=== PATIENT | male | born 1945 | race Caucasian/White ===

== ENCOUNTER 2017-03-19 10:27 | Inpatient (IN) | payer OTHER ==
[2017-03-19 10:33] VITALS: BMI 22.0
--- NOTE | 2017-03-19 10:54 | DR.GENAD ---
HPI - PCP Primary Care Physician: S - HPI Comment HPI Comment: PROGRESSIVE OVER FEW MONTHS. WORSE TODAY. NO FEVER. DYSPNEA ON EXERSION. - Complaint/Symptoms Chief Complaint Doctors Comments: GENERALIZE WEAKNESS, ABDOMINAL PAIN AND GI BLEEDING. Chief Complaint:: PT. STATES HE THINKS HIS ULCERATIVE COLITIS IS FLARING UP. PT. STATES HE HAS HAD BLOOD IN HIS STOOL FOR ABOUT 1-2 MONTHS. LAST BOWEL MOVEMENT THIS MORNING. PT. ALSO C/O WEAKNESS AND DIZZINESS UPON STANDING. - Nurses notes reviewed Nurses Notes Review: Yes - Source History Provided: Patient, Family Member - Mode of Arrival Mode of Arrival: Wheelchair - Timing Onset of Chief Complaint: 01/18/17 Came on: Gradually - Duration Duration: Constant Duration: Days - Severity Severity: Moderate PMH - PMH Past Medical History: Yes Past Medical History: Arthritis, Hypertension, Kidney Stones Past Medical History Comment: ULCERATIVE COLITIS, BIPOLAR Past Surgical History: Yes Surgical History: Abdominal Surgery, Ortho Surgery, Other - Family History History of Family Medical Conditions: Yes Family Medical History: [place], Coronary Artery Disease, Hypertension - Social History Does patient currently use any type of tobacco product: No Have you used tobacco products in the last 12 months: No Type of Tobacco Use: None Does any household member use tobacco: No Alcohol Use: None Do you use any recreational Drugs:: No Lives With: Spouse Lives Where: Home - infectious screening In the last 2 months have you had wt loss of >10#?: NO Have you had fever, night sweats or hemotysis?: No Have you traveled outside the country in the last 6 months?: No Isolation: Standard ROS - Review of Systems Constitutional: Weakness Eyes: Tearing ENTM: negative: Ear Pain, Nose Discharge, Nose Congestion, Throat Pain Respiratoy: Non-Productive Cough, Short of Breath. negative: Productive Cough, Wheezing, Hemoptysis Cardiovascular: negative: Syncope (NEAR SYNCOPAL FEELING.) Gastrointestinal/Abdominal: Abdominal Pain Genitourinary: negative: Dysuria, Hematuria Neurological: Weakness Musculoskeletal: Joint Swelling, Muscle Pain Integumentary: No Symptoms Reported Endocrine: No Symptoms Reported All Other Systems: Reviewed and Negative PE - Vital Signs Vitals: Temperature 97.4 F Pulse Rate 78 Respiratory Rate 17 Blood Pressure [Left Arm] 97/58 Blood Pressure [Right Arm] 148/86 Blood Pressure 134/75 O2 Sat by Pulse Oximetry 95 - General Limitations: No Limitations General Appearance: Alert - Head Head Exam: Normal Inspection - Eyes Eye exam: Normal Appearance - ENT ENT Exam: Normal External Ear Exam External Ear Exam: Normal External Inspection TM/Canal Exam: Bilateral Normal Nose Exam: Normal Nose Exam Mouth Exam: Normal Inspection Throat Exam: Normal Inspection - Neck Neck Exam: Normal Inspection - Chest Chest Inspection: Symmetric Chest Wall Rise - Respiratory Respiratory Exam: Normal Lung Sounds Bilat - Cardiovascular Cardiovascular Exam: Regular Rate, Normal Rhythm, Normal Heart Sounds - Abdominal Exam Abdominal Exam: Normal Bowel Sounds, Soft, Tenderness Abdominal Tenderness: RLQ, LLQ, Suprapubic - Extremities Extremities Exam: Normal Inspection - Back Back Exam: Normal Inspection - Neurologic Neurological Exam: Alert, Oriented X3 - Psychiatric Psychiatric Exam: Normal Affect, Normal Mood - Skin Skin Exam: Normal Color MDM - Differential Diagnosis Differential Diagnosis: ABDOMINAL PAIN, BOWEL OBSTRUCTION, UTI, ULCERATIVE, COLITIS Course - Treatment Treatment: SEE ORDERS. - Education/Counseling Education/Counseling: Patient, Education Educated On: Diagnosis ROR - Labs Reviewed Result Diagrams: 03/19/17 11:20 03/19/17 11:20 Laboratory: WBC 6.4 X10^3/uL (3.6-10.0) 03/19/17 11:20 RBC 3.92 X10^6/uL (4.7-6.0) L 03/19/17 11:20 Hgb 12.6 g/dL (13.5-18.0) L 03/19/17 11:20 Hct 37.8 % (42.0-54.0) L 03/19/17 11:20 MCV 96.5 fL (80.0-100.0) 03/19/17 11:20 MCH 32.0 pg (27.0-34.0) 03/19/17 11:20 MCHC 33.2 g/dL (33.0-35.0) 03/19/17 11:20 RDW 15.2 % (11.6-16.5) 03/19/17 11:20 Plt Count 188 X10^3/uL (150.0-450.0) 03/19/17 11:20 MPV 8.3 fL (7.4-11.0) 03/19/17 11:20 Neut % 74.5 % (42.0-75.0) 03/19/17 11:20 Lymph % 19.7 % (21.0-51.0) L 03/19/17 11:20 [place] % 2.7 % (0.0-13.0) 03/19/17 11:20 Eos % 2.4 % (0.9-2.9) 03/19/17 11:20 Baso % 0.7 % (0.2-1.0) 03/19/17 11:20 Neut # 4.7 x10^3/uL (2.2-4.8) 03/19/17 11:20 Lymph # 1.3 X10^3/uL (1.3-2.9) 03/19/17 11:20 [place] # 0.2 x10^3/uL (0.3-0.8) L 03/19/17 11:20 Eos # 0.2 x10^3/uL (0.0-0.2) 03/19/17 11:20 Baso # 0.0 X10^3/uL (0.0-0.1) 03/19/17 11:20 Absolute Nucleated RBC 0.0 /100WBC 03/19/17 11:20 Sodium 139 mmol/L (136-145) 03/19/17 11:20 Corrected Sodium TNP 03/19/17 11:20 Potassium 4.6 mmol/L (3.5-5.1) 03/19/17 11:20 Chloride 105 mmol/L (98-107) 03/19/17 11:20 Carbon Dioxide 27.8 mmol/L (21-32) 03/19/17 11:20 BUN 29 mg/dL (7-18) H 03/19/17 11:20 Creatinine 1.61 mg/dL (0.70-1.30) H 03/19/17 11:20 Est GFR (MDRD) Af Amer 55 (>60) L 03/19/17 11:20 Est GFR (MDRD) Non-Af 45 (>60) L 03/19/17 11:20 Glucose 109 mg/dL (65-99) H 03/19/17 11:20 Calcium 8.5 mg/dL (8.5-10.1) 03/19/17 11:20 Corrected Calcium 9.4 mg/dL (8.5-10.1) 03/19/17 11:20 Total Bilirubin 0.20 mg/dL (0.2-1.0) 03/19/17 11:20 AST 13 Units/L (15-37) L 03/19/17 11:20 ALT 11 Units/L (12-78) L 03/19/17 11:20 Alkaline Phosphatase 68 Units/L (46-116) 03/19/17 11:20 Creatine Kinase 33 Units/L (39-308) L 03/19/17 11:20 CK-MB (CK-2) < 1.0 ng/mL (0-4.0) 03/19/17 11:20 CK/CKMB % Calc 3.0 % (<4) 03/19/17 11:20 Troponin I < 0.02 ng/mL (0-1.5) 03/19/17 11:20 Total Protein 6.6 g/dL (6.4-8.2) 03/19/17 11:20 Albumin 2.9 g/dL (3.4-5.0) L 03/19/17 11:20 Globulin 3.7 g/dL (2.5-4.5) 03/19/17 11:20 Albumin/Globulin Ratio 0.8 Ratio (1.1-2.1) L 03/19/17 11:20 Amylase 43 Units/L (25-115) 03/19/17 11:20 Lipase 118 Units/L (73-393) 03/19/17 11:20 Stool Description Fob tube 03/19/17 11:35 Stl Occult Blood (IFOB) Positive (NEGATIVE) A 03/19/17 11:35 - Discharge Plan Condition: Stable - Follow ups/Referrals Follow ups/Referrals: Wil Armas [Primary Care Provider] - 3 days - Instructions
[2017-03-19 11:34] LABS: BASOPHILS % (AUTO) 0.7 % (0.2-1.0); EOSINOPHILS # (AUTO) 0.2 x10^3/uL (0.0-0.2); EOSINOPHILS % (AUTO) 2.4 % (0.9-2.9); HEMATOCRIT 37.8 % (42.0-54.0); HEMOGLOBIN 12.6 g/dL (13.5-18.0); LYMPHOCYTES # (AUTO) 1.3 X10^3/uL (1.3-2.9); LYMPHOCYTES % (AUTO) 19.7 % (21.0-51.0); MEAN CORPUSCULAR HGB CONC 33.2 g/dL (33.0-35.0); MEAN CORPUSCULAR VOLUME 96.5 fL (80.0-100.0); MEAN PLATELET VOLUME 8.3 fL (7.4-11.0); MONOCYTES # (AUTO) 0.2 x10^3/uL (0.3-0.8); MONOCYTES % (AUTO) 2.7 % (0.0-13.0); NEUTROPHILS # (AUTO) 4.7 x10^3/uL (2.2-4.8); NEUTROPHILS % (AUTO) 74.5 % (42.0-75.0); PLATELET COUNT 188 X10^3/uL (150.0-450.0); RED BLOOD COUNT 3.92 X10^6/uL (4.7-6.0); RED CELL DISTRIBUTION WIDTH 15.2 % (11.6-16.5); WHITE BLOOD COUNT 6.4 X10^3/uL (3.6-10.0)
[2017-03-19 11:50] LABS: BLOOD UREA NITROGEN 29 mg/dL (7-18); CALCIUM 8.5 mg/dL (8.5-10.1); CARBON DIOXIDE 27.8 mmol/L (21-32); CHLORIDE 105 mmol/L (98-107); CREATININE 1.61 mg/dL (0.70-1.30); SODIUM 139 mmol/L (136-145); TROPONIN I < 0.02 ng/mL (0-1.5); eGFR BLACK RACES 55 (>60); eGFR NON BLACK RACES 45 (>60)
[2017-03-19 11:55] LABS: ALANINE AMINOTRANSFERASE 11 Units/L (12-78); ALBUMIN 2.9 g/dL (3.4-5.0); ALKALINE PHOSPHATASE 68 Units/L (46-116); AMYLASE 43 Units/L (25-115); ASPARTATE AMINO TRANSFERASE 13 Units/L (15-37); COR CA(FOR HYPOALB) 9.4 mg/dL (8.5-10.1); CREATINE KINASE 33 Units/L (39-308); CREATINE KINASE MB < 1.0 ng/mL (0-4.0); LIPASE 118 Units/L (73-393); TOTAL PROTEIN 6.6 g/dL (6.4-8.2)
[2017-03-19] MEDS ORDERED: NS 100 ML IV 100 ML IV ONE ×2 (12:43→12:51)
[2017-03-19] MEDS ORDERED: PROTONIX INJ 40 MG VIAL ONE (12:51)
[2017-03-19] MEDS: NS 1000 ML 1,000 ML IV SCH (13:21)
[2017-03-19] MEDS: PROTONIX INJ 40 MG VIAL 80 MG in NS 100 ML IV 80 ML IV SCH ×2 (13:21→22:54)
[2017-03-19] MEDS ORDERED: ZOFRAN INJ 4 MG VIAL IVP ONE (13:49)
[2017-03-19] MEDS ORDERED: DEMEROL INJ IVP ONE (13:49)
[2017-03-19] MEDS ORDERED: DEMEROL INJ ONE (13:52)
[2017-03-19] MEDS ORDERED: ZOFRAN INJ 4 MG VIAL ONE (13:52)
--- NOTE | 2017-03-19 14:03 | CT ---
HISTORY: Abdominal pain Study: CT abdomen pelvis with contrast Comparison: 03/16/2014 report Technique: Axial post-contrast images with coronal and sagittal reformats. Dose reduction procedures were used with mA/kv adjusted for body size. Findings: The lung bases are clear. Pleural calcifications are present suggestive of prior asbestos exposure. T here is a hiatal hernia present. The liver, spleen, adrenal glands, and pancreas are within normal li mits. There is a caval filter present. The kidneys are unobstructed and without masses. Bilateral sma ll renal cysts are present. No ureteral calculi are identified. The appendix is not identified. There are no secondary signs of appendicitis. There are no findings suggestive of diverticulitis or coliti s. Calcific atherosclerotic change is present in a nondilated abdominal aorta. No significant intrape ritoneal or retroperitoneal lymphadenopathy is identified. There is a radiodensity within the lumen o f the distal descending/transverse duodenum which is of uncertain etiology and significance. Examinat ion of the pelvis demonstrated no evidence for pelvic masses, pelvic fluid, or pelvic lymphadenopathy . No bladder abnormality is identified. No lytic or blastic skeletal lesions are identified. There is a compression fracture of L1 likely old. IMPRESSION: No acute intra-abdominal or intrapelvic abnormality Pleural calcifications suggestive of prior asbestos exposure Reported By:
[2017-03-19 14:50] LABS: BILIRUBIN,URINE NEGATIVE (NEGATIVE); BLOOD/HEMOGLOBIN,URINE NEGATIVE (NEGATIVE); GLUCOSE, URINE NEGATIVE (NEGATIVE); KETONES,URINE 1+ (NEGATIVE); LEUKOCYTE ESTERASE ,URINE NEGATIVE (NEGATIVE); NITRITES,URINE NEGATIVE (NEGATIVE); PROTEIN,URINE 1+ (NEGATIVE); UROBILINOGEN,URINE NORMAL (NORMAL)
[2017-03-19 14:57] LABS: APPEARANCE,URINE SLIGHTLY HAZY (CLEAR); BACTERIA,URINE NEGATIVE /HPF (NEGATIVE); COLOR,URINE YELLOW (YELLOW); RBC,URINE 0-1 /HPF (NEGATIVE); SQUAMOUS EPITHELIAL CELL,UR RARE /HPF (NEGATIVE)
[2017-03-19] MEDS ORDERED: ZOFRAN INJ 4 MG VIAL IVP PRN (15:06)
[2017-03-19 16:18] LABS: HEMATOCRIT 34.6 % (42.0-54.0); HEMOGLOBIN 11.6 g/dL (13.5-18.0)
[2017-03-19] MEDS: DEMEROL INJ IVP PRN ×2 (16:58→22:58)
[2017-03-19] MEDS ORDERED: CIPRO IV 400 MG PREMIX* 400 MG/200 ML IV.SOLN. IV SCH (17:00)
--- NOTE | 2017-03-19 17:54 | DR.CONSULT ---
Consult - Consultation for Day of: Date: 03/19/17 - Chief Complaint Chief Complaint: hematochezia - Allergies Allergies/Adverse Reactions: Allergies Allergy/AdvReac Type Severity Reaction Status Date / Time No Known Drug Allergies Allergy Verified 03/19/17 15:35 - History of Present Illness History of Present Illness: Patient is a 71you male who was referred for Occult GI bleed. Patient has a history of Chrons for which he used to take lialda and is no longer on this medication. Patients last colonoscopy was 2010 which showeled ulcerative colitis and hyperplastic rectal polyp. Patient states the rectal bleeding has been going on for about 6 months off and on but has gotten worse. Patient denies melena, diarrhea, abdominal pain, n/v, dysphagia and dyspepsia. - Past Medical History Past Medical History: Arthritis, Hypertension, Kidney Stones Additional Medical History: BIPOLAR DISORDER (NO MEDICATION IN 2 YEARS), BPH, HX GASTROINTESTINAL ULCER, COLITIS, HX FX (R) FOOT, PARKINSON'S, CATARACTS, UTI' S, BACK PAIN - Past Surgical History Surgical History: Abdominal Surgery, Ortho Surgery, Other Additional Surgical History: HERNIA REPAIR, ACDF SURGERY -JUN 2016 - Family History Family Medical History: [place], Coronary Artery Disease, Hypertension - Social History Does patient currently use any type of tobacco product: No Have you used tobacco products in the last 12 months: No Type of Tobacco Use: None How many years tobacco product used: 40 Does any household member use tobacco: No Alcohol Use: None Drug Use: None - Medications Home Medications: Oxycodone HCl/Acetaminophen [Oxycodone-Acetaminophen 5-325] 1 - 2 tab PO Q4-6H PRN 03/19/17 [History Confirmed 03/19/17] Tizanidine HCl [Tizanidine HCl] 1 tab PO HS 03/19/17 [History Confirmed 03/19/17 ] Venlafaxine HCl 1 tab PO DAILY 03/19/17 [History Confirmed 03/19/17] - Review of Systems Constitutional: Weakness Eyes: No Symptoms Reported ENT: No Symptoms Reported Respiratory: No Symptoms Reported Cardiovascular: No Symptoms Reported Gastrointestinal: Hematochezia Genitourinary: No Symptoms Reported Musculoskeletal: No Symptoms Reported Skin: No Symptoms Reported Neurological: No Symptoms Reported - Physical Exam Vital Signs: Temperature 98.7 F Pulse Rate [Left Brachial] 71 Pulse Rate 78 Respiratory Rate 18 Blood Pressure [Left Arm] 127/67 Blood Pressure [Right Arm] 148/86 Blood Pressure 134/75 O2 Sat by Pulse Oximetry 97 Oriented: Normal Eyes: Normal Ear: Normal Nose: Normal Throat: Normal Respiratory: Clear Throughout Cardiovascular: Normal : Normal Auscultation: Bowel Sounds: Normal Palpation: Normal Tenderness: Normal (no tenderness) Skin: Normal Musculoskeletal: Normal Psychiatric: Normal Mood Description: Calm Affect: Normal Speech Pattern: Clear - Plan Plan: Assessment. 1. Occult GI Bleed. 2. H/O ulcerative colitis. Plan. 1. Monitor Hgb transfuse as needed, will need endoscopic workup as outpatient. 2. Cipro, Flagy and solumedrol IV. Will follow up with patient as outpatient after hospital discharge. Patient will need to be discharge on Cipro and Flagyl, and prednisone 40mg PO Daily x2 weeks then 20mg daily and follow up in office
[2017-03-19] MEDS ORDERED: CIPRO IV 400 MG PREMIX* 400 MG/200 ML IV.SOLN. IV ONE (18:00)
[2017-03-19 20:35] LABS: HEMATOCRIT 31.4 % (42.0-54.0); HEMOGLOBIN 10.6 g/dL (13.5-18.0)
[2017-03-19] MEDS: SOLU-Medrol 40 MG VIAL IVP SCH (21:23)
[2017-03-19] MEDS: FLAGYL IV PREMIX 500 MG BAG 500 MG/100 ML BAG IV SCH (21:23)
[2017-03-19] MEDS: KLONOPIN TAB 1 MG PO PRN (23:54)
[2017-03-20] MEDS: CIPRO IV 400 MG PREMIX* 400 MG/200 ML IV.SOLN. IV SCH ×3 (00:13→21:44)
[2017-03-20 00:52] LABS: HEMATOCRIT 34.1 % (42.0-54.0); HEMOGLOBIN 11.5 g/dL (13.5-18.0)
[2017-03-20] MEDS: FLAGYL IV PREMIX 500 MG BAG 500 MG/100 ML BAG IV SCH ×4 (02:55→21:44)
[2017-03-20] MEDS: NS 1000 ML 1,000 ML IV SCH ×2 (05:19→22:03)
[2017-03-20] MEDS: SOLU-Medrol 40 MG VIAL IVP SCH ×3 (05:20→21:43)
[2017-03-20] MEDS: DEMEROL INJ IVP PRN ×2 (05:21→21:52)
[2017-03-20 05:47] LABS: BASOPHILS % (AUTO) 0.2 % (0.2-1.0); EOSINOPHILS % (AUTO) 0.1 % (0.9-2.9); HEMATOCRIT 33.8 % (42.0-54.0); HEMOGLOBIN 11.4 g/dL (13.5-18.0); LYMPHOCYTES # (AUTO) 0.8 X10^3/uL (1.3-2.9); LYMPHOCYTES % (AUTO) 12.5 % (21.0-51.0); MEAN CORPUSCULAR HEMOGLOBIN 32.4 pg (27.0-34.0); MEAN CORPUSCULAR HGB CONC 33.6 g/dL (33.0-35.0); MEAN CORPUSCULAR VOLUME 96.2 fL (80.0-100.0); MONOCYTES # (AUTO) 0.1 x10^3/uL (0.3-0.8); MONOCYTES % (AUTO) 0.9 % (0.0-13.0); NEUTROPHILS # (AUTO) 5.2 x10^3/uL (2.2-4.8); NEUTROPHILS % (AUTO) 86.3 % (42.0-75.0); PLATELET COUNT 191 X10^3/uL (150.0-450.0); RED BLOOD COUNT 3.51 X10^6/uL (4.7-6.0)
[2017-03-20 06:00] LABS: ALANINE AMINOTRANSFERASE 10 Units/L (12-78); ALBUMIN 2.5 g/dL (3.4-5.0); ALKALINE PHOSPHATASE 57 Units/L (46-116); ASPARTATE AMINO TRANSFERASE 13 Units/L (15-37); BLOOD UREA NITROGEN 19 mg/dL (7-18); CALCIUM 8.2 mg/dL (8.5-10.1); CARBON DIOXIDE 24.8 mmol/L (21-32); CHLORIDE 107 mmol/L (98-107); COR CA(FOR HYPOALB) 9.4 mg/dL (8.5-10.1); COR NA(FOR HYPERGLY) 141 mmol/L (136-145); CREATININE 1.39 mg/dL (0.70-1.30); SODIUM 140 mmol/L (136-145); TOTAL PROTEIN 5.7 g/dL (6.4-8.2); eGFR BLACK RACES > 60 (>60); eGFR NON BLACK RACES 54 (>60)
[2017-03-20] MEDS ORDERED: HALDOL INJ IVP PRN (09:21)
[2017-03-20] MEDS: ZyPREXA TAB 5 MG PO SCH ×2 (10:08→17:29)
[2017-03-20] MEDS ORDERED: XANAX PO PRN (10:29)
[2017-03-20] MEDS ORDERED: PERCOCET TAB 5/325 MG PO PRN (10:29)
[2017-03-20] MEDS ORDERED: KLONOPIN TAB 0.5 MG PO PRN (10:29)
[2017-03-20] MEDS ORDERED: ZANAFLEX PO PRN (10:29)
[2017-03-20] MEDS: PEPCID 20 MG IV PREMIX* 20 MG/50 ML BAG IV SCH ×2 (11:06→21:44)
[2017-03-20] MEDS: EFFEXOR TAB 75 MG (BID DOSING) PO SCH (11:07)
[2017-03-20] MEDS: FLOMAX PO SCH ×2 (11:08→21:42)
[2017-03-20] MEDS: PROTONIX INJ 40 MG VIAL 80 MG in NS 100 ML IV 80 ML IV SCH ×2 (14:55→21:44)
[2017-03-20] MEDS: ULTRAM PO PRN (17:29)
[2017-03-20] MEDS ORDERED: DEPAKOTE ER PO SCH (21:00)
[2017-03-20] MEDS ORDERED: AVODART PO SCH (21:00)
[2017-03-21] MEDS: FLAGYL IV PREMIX 500 MG BAG 500 MG/100 ML BAG IV SCH ×2 (04:00→08:45)
[2017-03-21] MEDS: PROTONIX INJ 40 MG VIAL 80 MG in NS 100 ML IV 80 ML IV SCH (05:32)
[2017-03-21] MEDS: SOLU-Medrol 40 MG VIAL IVP SCH (05:32)
[2017-03-21 05:55] LABS: BASOPHILS % (AUTO) 0.1 % (0.2-1.0); HEMATOCRIT 33.3 % (42.0-54.0); HEMOGLOBIN 11.1 g/dL (13.5-18.0); LYMPHOCYTES # (AUTO) 1.1 X10^3/uL (1.3-2.9); MEAN CORPUSCULAR HEMOGLOBIN 32.3 pg (27.0-34.0); MEAN CORPUSCULAR HGB CONC 33.3 g/dL (33.0-35.0); MEAN CORPUSCULAR VOLUME 96.9 fL (80.0-100.0); MEAN PLATELET VOLUME 9.5 fL (7.4-11.0); MONOCYTES # (AUTO) 0.2 x10^3/uL (0.3-0.8); MONOCYTES % (AUTO) 2.2 % (0.0-13.0); NEUTROPHILS # (AUTO) 6.7 x10^3/uL (2.2-4.8); NEUTROPHILS % (AUTO) 83.7 % (42.0-75.0); PLATELET COUNT 221 X10^3/uL (150.0-450.0); RED BLOOD COUNT 3.43 X10^6/uL (4.7-6.0); RED CELL DISTRIBUTION WIDTH 15.3 % (11.6-16.5)
[2017-03-21 06:18] LABS: ALANINE AMINOTRANSFERASE 7 Units/L (12-78); ALBUMIN 2.3 g/dL (3.4-5.0); ALKALINE PHOSPHATASE 52 Units/L (46-116); BLOOD UREA NITROGEN 20 mg/dL (7-18); CALCIUM 7.9 mg/dL (8.5-10.1); CARBON DIOXIDE 26.2 mmol/L (21-32); CHLORIDE 111 mmol/L (98-107); COR CA(FOR HYPOALB) 9.3 mg/dL (8.5-10.1); COR NA(FOR HYPERGLY) 143 mmol/L (136-145); CREATININE 1.42 mg/dL (0.70-1.30); SODIUM 142 mmol/L (136-145); TOTAL PROTEIN 5.5 g/dL (6.4-8.2); eGFR BLACK RACES > 60 (>60); eGFR NON BLACK RACES 52 (>60)
[2017-03-21 06:22] LABS: ASPARTATE AMINO TRANSFERASE 14 Units/L (15-37)
[2017-03-21] MEDS: NS 1000 ML 1,000 ML IV SCH (07:23)
[2017-03-21] MEDS: FLOMAX PO SCH (08:45)
[2017-03-21] MEDS: KLONOPIN TAB 1 MG PO PRN (08:45)
[2017-03-21] MEDS: CIPRO IV 400 MG PREMIX* 400 MG/200 ML IV.SOLN. IV SCH (08:45)
[2017-03-21] MEDS: PEPCID 20 MG IV PREMIX* 20 MG/50 ML BAG IV SCH (08:45)
[2017-03-21] MEDS: EFFEXOR TAB 75 MG (BID DOSING) PO SCH (08:45)
[2017-03-21] MEDS: ZyPREXA TAB 5 MG PO SCH (08:45)
[2017-03-21] MEDS: ULTRAM PO PRN (08:46)
[2017-03-21 12:20] VITALS: BP 82/50
[2017-03-21 14:38] LABS: HEMATOCRIT 31.2 % (42.0-54.0); HEMOGLOBIN 10.5 g/dL (13.5-18.0)
== END 2017-03-21 14:50 | disposition home or self-care (01) | DRG 379 ==
LOC: ER 10:37 → MED/SURG 14:57
PROVIDERS: ADMIT Internal Medicine; ATTEND Internal Medicine
DX: K92.2 Gastrointestinal hemorrhage, unspecified (principal); R10.84 Generalized abdominal pain; R53.1 Weakness; M13.89 Other specified arthritis, multiple sites; I10 Essential (primary) hypertension; R94.31 Abnormal electrocardiogram [ECG] [EKG]; Z87.19 Personal history of other diseases of the digestive system
CPT/HCPCS: 36415; 74177; 80053; 81001; 82150; 82270; 82550; 82553; 83690; 84484; 85014; 85018; 85025; 85610; 93005; 94760; 96365; 96367; 96374; 96375; 99284; A4222; C9113; S0028; S0030; J0744; J1630; J2175; J2405; J2920

== ENCOUNTER → 2017-09-23 | Outpatient (CLI) | payer OTHER ==
--- NOTE | 2017-09-23 15:24 | CT ---
HISTORY: Neck pain for 1 month, history of previous surgery and spinal stenosis Study: CT cervical spine without contrast Comparison: None Technique: Multiple axial images of the cervical spine were obtained from the skull base to the thora cic inlet without administration of IV contrast. Sagittal and coronal reformats were performed and r eviewed. Dose reduction techniques including Automated Exposure Control (AEC) and adjustment of mA an d kV were utilized. Findings: Postsurgical changes are noted with what appears be separate ACDF constructs, spanning C3-C5 and C6 t hrough C7. No abnormal perihardware lucency or malalignment is identified. There are spondylitic de la fuente ges above below the level of. There is moderate to severe left foraminal stenosis at C3-C4 and C4-C5 due to uncovertebral osteophytes. No high-grade spinal canal stenosis is identified. The visualized prevertebral and paraspinal soft tissues appear normal. The visualized lung apices are clear. IMPRESSION: 1. Postsurgical changes as described without acute osseous abnormality. 2. Moderate to severe left foraminal stenosis C3-C4 and C4-C5. Reported By:
== END ==
LOC: RAD 13:53
PROVIDERS: ATTEND Orthopaedic Surgery
DX: M48.02 Spinal stenosis, cervical region (principal)
CPT/HCPCS: 72125

== ENCOUNTER 2018-05-28 15:34 | Observation (INO) ==
--- NOTE | 2018-05-28 16:26 | DR.N/VMALE ---
HPI Time Seen Time Seen by Provider: 05/28/18 16:17 Primary Care Physician Primary Care Physician: TOYIN Complaints Chief Complaint:: PATIENT IS C/O NAUSEA AND VOMITING THAT STARTED 2 DAYS. Source History Provided: Patient and EMS Mode of Arrival Mode of Arrival: EMS Timing Onset of Chief Complaint: 05/26/18 PMH PMH Past Medical History: Yes Past Medical History: Arthritis, Hypertension and Kidney Stones Past Surgical History: Yes Surgical History: Abdominal Surgery, Ortho Surgery and Other Family History History of Family Medical Conditions: Yes Family Medical History: [place], Coronary Artery Disease and Hypertension Social History Does patient currently use any type of tobacco product: No Have you used tobacco products in the last 12 months: No Type of Tobacco Use: None Does any household member use tobacco: No Alcohol Use: None Do you use any recreational Drugs:: No Lives With: Family Lives Where: Home infectious screening In the last 2 months have you had wt loss of >10#?: NO Have you had fever, night sweats or hemotysis?: No Have you traveled outside the country in the last 6 months?: No Isolation: Standard PE Vital Signs Vitals: Temperature 98.1 F Pulse Rate [Right Brachial] 87 Pulse Rate 95 Respiratory Rate 15 Blood Pressure [Left Arm] 90/54 Blood Pressure [Right Arm] 129/67 Blood Pressure 140/77 O2 Sat by Pulse Oximetry 94 ROR Labs Reviewed Result Diagrams: 05/28/18 17:03 05/28/18 17:03 Laboratory: WBC 19.8 X10^3/uL (3.6-10.0) H 05/28/18 17:03 RBC 3.84 X10^6/uL (4.7-6.0) L 05/28/18 17:03 Hgb 12.3 g/dL (13.5-18.0) L 05/28/18 17:03 Hct 37.0 % (42.0-54.0) L 05/28/18 17:03 MCV 96.3 fL (80.0-100.0) 05/28/18 17:03 MCH 32.1 pg (27.0-34.0) 05/28/18 17:03 MCHC 33.3 g/dL (33.0-35.0) 05/28/18 17:03 RDW 14.8 % (11.6-16.5) 05/28/18 17:03 Plt Count 267 X10^3/uL (150.0-450.0) 05/28/18 17:03 MPV 7.9 fL (7.4-11.0) 05/28/18 17:03 Neut % (Auto) 82.1 % (42.0-75.0) H 05/28/18 17:03 Lymph % (Auto) 7.4 % (21.0-51.0) L 05/28/18 17:03 [place] % (Auto) 8.8 % (0.0-13.0) 05/28/18 17:03 Eos % (Auto) 1.0 % (0.9-2.9) 05/28/18 17:03 Baso % (Auto) 0.7 % (0.2-1.0) 05/28/18 17:03 Neut # (Auto) 16.3 x10^3/uL (2.2-4.8) H 05/28/18 17:03 Lymph # (Auto) 1.5 X10^3/uL (1.3-2.9) 05/28/18 17:03 [place] # (Auto) 1.8 x10^3/uL (0.3-0.8) H 05/28/18 17:03 Eos # (Auto) 0.2 x10^3/uL (0.0-0.2) 05/28/18 17:03 Baso # (Auto) 0.1 X10^3/uL (0.0-0.1) 05/28/18 17:03 Absolute Nucleated RBC 0.0 /100WBC 05/28/18 17:03 Sodium 140 mmol/L (136-145) 05/28/18 17:03 Corrected Sodium TNP 05/28/18 17:03 Potassium 4.0 mmol/L (3.5-5.1) 05/28/18 17:03 Chloride 107 mmol/L (98-107) 05/28/18 17:03 Carbon Dioxide 24.8 mmol/L (21-32) 05/28/18 17:03 BUN 16 mg/dL (7-18) 05/28/18 17:03 Creatinine 1.33 mg/dL (0.70-1.30) H 05/28/18 17:03 Est GFR (MDRD) Af Amer > 60 (>60) 05/28/18 17:03 Est GFR (MDRD) Non-Af 56 (>60) L 05/28/18 17:03 Glucose 97 mg/dL (65-99) 05/28/18 17:03 Calcium 8.7 mg/dL (8.5-10.1) 05/28/18 17:03 Corrected Calcium TNP 05/28/18 17:03 Total Bilirubin 0.40 mg/dL (0.2-1.0) 05/28/18 17:03 AST 11 Units/L (15-37) L 05/28/18 17:03 ALT 13 Units/L (12-78) 05/28/18 17:03 Alkaline Phosphatase 102 Units/L (46-116) 05/28/18 17:03 Creatine Kinase 30 Units/L (39-308) L 05/28/18 17:03 CK-MB (CK-2) < 1.0 ng/mL (0-4.0) 05/28/18 17:03 CK/CKMB % Calc 3.3 % (<4) 05/28/18 17:03 Troponin I < 0.02 ng/mL (0-1.5) 05/28/18 17:03 Total Protein 6.6 g/dL (6.4-8.2) 05/28/18 17:03 Albumin 3.4 g/dL (3.4-5.0) 05/28/18 17:03 Globulin 3.2 g/dL (2.5-4.5) 05/28/18 17:03 Albumin/Globulin Ratio 1.1 Ratio (1.1-2.1) 05/28/18 17:03 Amylase 45 Units/L (25-115) 05/28/18 17:03 Lipase 65 Units/L (73-393) L 05/28/18 17:03 Specimen Type Clean catch urine 05/28/18 18: Urine Color Yellow (YELLOW) 05/28/18 18:28 Urine Appearance Clear (CLEAR) 05/28/18 18: Urine pH 5.0 (5.0 - 8.0) 05/28/18 18:28 Ur Specific [place] 1.025 (1.000-1.030) 05/28/18 18:28 Urine Protein Negative (NEGATIVE) 05/28/18 18:28 Urine Glucose (UA) Negative (NEGATIVE) 05/28/18 18: Urine Ketones Negative (NEGATIVE) 05/28/18 18: Urine Occult Blood Negative (NEGATIVE) 05/28/18 18: Urine Nitrite Negative (NEGATIVE) 05/28/18 18: Urine Bilirubin Negative (NEGATIVE) 05/28/18 18: Urine Urobilinogen Normal (NORMAL) 05/28/18 18: Ur Leukocyte Esterase Negative (NEGATIVE) 05/28/18 18: Urine Opiates Screen Negative (NEG=<300) 05/28/18 18: Urine Methadone Screen Negative (NEG=<300) 05/28/18 18: Ur Barbiturates Screen Negative (NEG=<200) 05/28/18 18: Ur Phencyclidine Scrn Negative (NEG=<25) 05/28/18 18: Ur Amphetamines Screen Negative (NEG=<1000) 05/28/18 18: U Benzodiazepines Scrn Positive (NEG=<200) 05/28/18 18: Urine Cocaine Screen Negative (NEG=<300) 05/28/18 18:28 U Marijuana (THC) Screen Negative (NEG=<50) 05/28/18 18:28
[2018-05-28] MEDS ORDERED: TORADOL 60 MG VIAL IVP ONE (16:48)
[2018-05-28] MEDS ORDERED: PEPCID 20 MG IV PREMIX* 20 MG/50 ML BAG IV ONE ×2 (16:48→17:02)
[2018-05-28] MEDS ORDERED: ZOFRAN INJ 4 MG VIAL IVP ONE (16:51)
[2018-05-28] MEDS ORDERED: TORADOL 30 MG VIAL ONE (17:02)
[2018-05-28] MEDS ORDERED: ZOFRAN INJ 4 MG VIAL ONE (17:02)
[2018-05-28 17:16] LABS: BASOPHILS # (AUTO) 0.1 X10^3/uL (0.0-0.1); BASOPHILS % (AUTO) 0.7 % (0.2-1.0); EOSINOPHILS # (AUTO) 0.2 x10^3/uL (0.0-0.2); HEMOGLOBIN 12.3 g/dL (13.5-18.0); LYMPHOCYTES # (AUTO) 1.5 X10^3/uL (1.3-2.9); LYMPHOCYTES % (AUTO) 7.4 % (21.0-51.0); MEAN CORPUSCULAR HEMOGLOBIN 32.1 pg (27.0-34.0); MEAN CORPUSCULAR HGB CONC 33.3 g/dL (33.0-35.0); MEAN CORPUSCULAR VOLUME 96.3 fL (80.0-100.0); MEAN PLATELET VOLUME 7.9 fL (7.4-11.0); MONOCYTES # (AUTO) 1.8 x10^3/uL (0.3-0.8); MONOCYTES % (AUTO) 8.8 % (0.0-13.0); NEUTROPHILS # (AUTO) 16.3 x10^3/uL (2.2-4.8); NEUTROPHILS % (AUTO) 82.1 % (42.0-75.0); PLATELET COUNT 267 X10^3/uL (150.0-450.0); RED BLOOD COUNT 3.84 X10^6/uL (4.7-6.0); RED CELL DISTRIBUTION WIDTH 14.8 % (11.6-16.5); WHITE BLOOD COUNT 19.8 X10^3/uL (3.6-10.0)
[2018-05-28 17:26] LABS: BLOOD UREA NITROGEN 16 mg/dL (7-18); CALCIUM 8.7 mg/dL (8.5-10.1); CARBON DIOXIDE 24.8 mmol/L (21-32); CHLORIDE 107 mmol/L (98-107); CREATININE 1.33 mg/dL (0.70-1.30); SODIUM 140 mmol/L (136-145); TROPONIN I < 0.02 ng/mL (0-1.5); eGFR NON BLACK RACES 56 (>60)
[2018-05-28 17:30] LABS: ALANINE AMINOTRANSFERASE 13 Units/L (12-78); ALBUMIN 3.4 g/dL (3.4-5.0); ALKALINE PHOSPHATASE 102 Units/L (46-116); AMYLASE 45 Units/L (25-115); ASPARTATE AMINO TRANSFERASE 11 Units/L (15-37); CKMB % 3.3 % (<4); CREATINE KINASE 30 Units/L (39-308); CREATINE KINASE MB < 1.0 ng/mL (0-4.0); LIPASE 65 Units/L (73-393); TOTAL PROTEIN 6.6 g/dL (6.4-8.2)
--- NOTE | 2018-05-28 18:23 | CT ---
HISTORY: Abdominal pain with nausea vomiting and diarrhea Study: CT abdomen and pelvis without contrast Comparison: 03/19/2017 Technique: Multiple axial images of the abdomen and pelvis were obtained from the lung bases to the pubic symphysis without the administration of IV contrast. Findings: There is elevation of the right diaphragm which contributes directly to a component of chronic compressive atelectasis and linear fibrotic change at the right lung base. There are findings of calcified, nodular pleural plaque in the right lung base, a chronic finding which is unchanged from exams dating back to 2013. The liver attenuation is predominantly homogeneous. No calcified gallstones are observed. Calcified pleural based nodules are also demonstrated separately within the left lung base. A hiatal hernia is demonstrated and contributes to a component of compressive atelectasis in the left lower lobe surrounding the hernia. No acute abnormalities of the spleen, pancreas or adrenal glands. It is notable that the pancreas is atrophic with fatty replacement. There is no hydronephrosis of the right kidney or the left kidney. Small bilateral nonobstructing renal calculi are observed, the largest measuring 3 mm within the left kidney. There are no pathologically distended large or small bowel segments. Within limitations of a noncontrast CT exam, no aggressively thickened or acutely inflamed large or small bowel segments a normal caliber appendix is identified. IVC filter is in place. No free air, free fluid or lymphadenopathy identified. Note is made of moderate stool burden of the colon without stool impaction. Within the pelvis, no acute abnormalities of the bladder, prostate gland or seminal vesicles are observed. A patulous, fat containing left inguinal canal is noted incidentally without complication. Chronic fracture deformities of the right superior and inferior pubic rami are observed. Patient status post right total hip arthroplasty for treatment of an intertrochanteric right hip fracture. Chronic contour deformities of several right lateral thoracic ribs are also consistent with old fracture sites. There is a chronic compression fracture of the L1 vertebral body with moderate height loss there is an age-indeterminate compression fracture of T7 which may be in a subacute stage is there is residual sclerosis of the vertebral body. IMPRESSION: No acute intra-abdominal or pelvic inflammatory process Nonobstructive bowel gas pattern Bilateral nonobstructing renal calculi Chronic pleural based nodular calcifications may be associated with prior asbestos exposure Hiatal hernia Chronic elevation of the right diaphragm contributes to linear, fibroatelectatic changes of the right lung base. An age indeterminate compression fracture of T7 with moderate height loss, possibly subacute. Clinic tenderness Other chronic and incidental findings as discussed above. Reported By:
[2018-05-28 18:45] LABS: BILIRUBIN,URINE NEGATIVE (NEGATIVE); BLOOD/HEMOGLOBIN,URINE NEGATIVE (NEGATIVE); GLUCOSE, URINE NEGATIVE (NEGATIVE); KETONES,URINE NEGATIVE (NEGATIVE); LEUKOCYTE ESTERASE ,URINE NEGATIVE (NEGATIVE); NITRITES,URINE NEGATIVE (NEGATIVE); PROTEIN,URINE NEGATIVE (NEGATIVE); UROBILINOGEN,URINE NORMAL (NORMAL)
[2018-05-28 18:47] LABS: APPEARANCE,URINE CLEAR (CLEAR); COLOR,URINE YELLOW (YELLOW)
[2018-05-28] MEDS ORDERED: ZOFRAN INJ 4 MG VIAL IVP PRN (20:54)
[2018-05-28] MEDS: NS 1000 ML 1,000 ML IV SCH (21:20)
[2018-05-28 22:30] VITALS: BMI 21.7
--- NOTE | 2018-05-29 05:44 | RAD ---
Examination: Portable AP chest History: Abdominal pain Comparison 07/11/2016 Findings: Continued normal heart size. Marked persistent elevation right hemidiaphragm. No evidence for acute consolidation, pneumothorax or pleural fluid. Impression: No acute cardiac or pulmonary lesion noted. Elevated right hemidiaphragm. Reported By:
[2018-05-29] MEDS: NS 1000 ML 1,000 ML IV SCH ×2 (06:00→16:11)
[2018-05-29 06:47] LABS: BASOPHILS # (AUTO) 0.1 X10^3/uL (0.0-0.1); BASOPHILS % (AUTO) 0.5 % (0.2-1.0); EOSINOPHILS # (AUTO) 0.2 x10^3/uL (0.0-0.2); EOSINOPHILS % (AUTO) 1.4 % (0.9-2.9); HEMATOCRIT 34.4 % (42.0-54.0); HEMOGLOBIN 11.3 g/dL (13.5-18.0); LYMPHOCYTES # (AUTO) 1.9 X10^3/uL (1.3-2.9); LYMPHOCYTES % (AUTO) 16.3 % (21.0-51.0); MEAN CORPUSCULAR HGB CONC 32.9 g/dL (33.0-35.0); MEAN CORPUSCULAR VOLUME 97.3 fL (80.0-100.0); MEAN PLATELET VOLUME 8.5 fL (7.4-11.0); MONOCYTES # (AUTO) 0.8 x10^3/uL (0.3-0.8); MONOCYTES % (AUTO) 7.3 % (0.0-13.0); NEUTROPHILS # (AUTO) 8.6 x10^3/uL (2.2-4.8); NEUTROPHILS % (AUTO) 74.5 % (42.0-75.0); PLATELET COUNT 219 X10^3/uL (150.0-450.0); RED BLOOD COUNT 3.53 X10^6/uL (4.7-6.0); RED CELL DISTRIBUTION WIDTH 14.9 % (11.6-16.5); WHITE BLOOD COUNT 11.6 X10^3/uL (3.6-10.0)
[2018-05-29 06:57] LABS: ALANINE AMINOTRANSFERASE 13 Units/L (12-78); ALBUMIN 2.9 g/dL (3.4-5.0); ALKALINE PHOSPHATASE 87 Units/L (46-116); ASPARTATE AMINO TRANSFERASE 11 Units/L (15-37); BLOOD UREA NITROGEN 18 mg/dL (7-18); CALCIUM 8.3 mg/dL (8.5-10.1); CARBON DIOXIDE 24.3 mmol/L (21-32); CHLORIDE 109 mmol/L (98-107); COR CA(FOR HYPOALB) 9.2 mg/dL (8.5-10.1); CREATININE 1.28 mg/dL (0.70-1.30); SODIUM 142 mmol/L (136-145); TOTAL PROTEIN 5.9 g/dL (6.4-8.2); eGFR NON BLACK RACES 59 (>60)
[2018-05-29] MEDS ORDERED: PHENERGAN TAB 25 MG PO PRN (12:06)
--- NOTE | 2018-05-29 12:12 | DR.H&P ---
H&P - History & Physical for Day of: H&P Date: 05/28/18 - Chief Complaint Chief Complaint: NV AND BACK PAIN - History of Present Illness History of Present Illness: 72 [facility] ER ADMISSION AFTER PRESENTING WITH CO N/V, SPOUSE CONCERNED HE MAY BE DEHYDRATED AND THINKS "UPSET STOMACH FROM TAKING MEDICATION ON EMPTY STOMACH". PT HAS HX OF RECENT FALL AND CO INTRACTABLE BACK PAIN. PT IS ON PERCOCET FOR PAIN AND UNDER CARE OF BONE AND JOINT AND DR ERICKSON FOR CHRONIC JOINT AND LOWER BACK PAIN. PT PMH OF ARTHRITIS AND BIPOLAR DISORDER, BPH. PT ADMITTED FOR IV HYDRATION AND PAIN CONTROL - Past Medical History Past Medical History: Hypertension, Arthritis, Kidney Stones Additional Medical History: BIPOLAR DISORDER (NO MEDICATION IN 2 YEARS), BPH, HX GASTROINTESTINAL ULCER, COLITIS, HX FX (R) FOOT, PARKINSON'S, CATARACTS, UTI'S, BACK PAIN - Past Surgical History Surgical History: Abdominal Surgery, Ortho Surgery, Other Additional Surgical History: HERNIA REPAIR, ACDF SURGERY -JUN 2016 - Family History Family Medical History: [place], Coronary Artery Disease, Hypertension - Social History Does patient currently use any type of tobacco product: No Have you used tobacco products in the last 12 months: No Type of Tobacco Use: None Does any household member use tobacco: No Alcohol Use: None Drug Use: None - Medications Home Medications: No Known Drug Allergies Allergy (Verified 03/19/17 15:35) CONTINUE taking the following medications mesalamine 4 tab PO DAILY 05/28/18 [History] olanzapine [Zyprexa] 5 mg PO BID 05/28/18 [History] promethazine 25 mg PO Q4-6H PRN 05/28/18 [History] duloxetine 30 mg PO DAILY 05/29/18 [History] oxycodone-acetaminophen 1 tab PO QID PRN 05/29/18 [History] tamsulosin 0.4 mg PO BID 05/29/18 [History] tizanidine 4 mg PO .EVENING 05/29/18 [History] - Review of Systems Constitutional: No Symptoms Reported Eyes: No Symptoms Reported ENT: No Symptoms Reported Respiratory: No Symptoms Reported Cardiovascular: No Symptoms Reported Gastrointestinal: Nausea, Vomiting Genitourinary: No Symptoms Reported Musculoskeletal: Back Pain Skin: No Symptoms Reported Neurological: No Symptoms Reported - Physical Exam Vital Signs: Temperature 98 F Pulse Rate [Left Brachial] 70 Pulse Rate [Right Brachial] 67 Pulse Rate 95 Respiratory Rate 18 Blood Pressure [Left Arm] 109/59 Blood Pressure [Right Arm] 96/53 Blood Pressure 140/77 O2 Sat by Pulse Oximetry 97 Oriented: Normal Eyes: Normal Ear: Normal Nose: Normal Throat: Normal Respiratory: Clear Throughout Cardiovascular: Normal : Normal Auscultation: Bowel Sounds: Increased Palpation: Normal Tenderness: Normal Skin: Normal Musculoskeletal: Back:Thoracic, Back:Lumbar Psychiatric: Normal Mood Description: Calm Speech Pattern: Clear, Appropriate - Assessment/Plan (1) Gastroenteritis Status: Acute Plan: ADMIT, GENTLE IV HYDRATION. REPEAT AM LABS, I & O. VERIFY HOME MEDICATION. PAIN CONTROL (2) Abdominal pain Qualifiers: Abdominal location: generalized Qualified Code(s): R10.84 - Generalized abdominal pain Status: Acute (3) COPD (chronic obstructive pulmonary disease) Qualifiers: COPD type: COPD with acute lower respiratory infection Qualified Code(s): J44.0 - Chronic obstructive pulmonary disease with acute lower respiratory infection Status: Chronic (4) BPH (benign prostatic hypertrophy) Qualifiers: Lower urinary tract symptom presence: symptoms present Qualified Code(s): N40.1 - Benign prostatic hyperplasia with lower urinary tract symptoms Status: Chronic (5) Bipolar disorder Qualifiers: Active/Remission status: in full remission Most recent bipolar episode type: depressed Qualified Code(s): F31.76 - Bipolar disorder, in full remission, most recent episode depressed Status: Chronic (6) Depression Qualifiers: Depression Type: major depressive disorder Major depression recurrence: recurrent Active/Remission status: currently active Major depression episode severity: moderate Qualified Code(s): F33.1 - Major depressive disorder, recurrent, moderate Status: Chronic (7) HTN (hypertension) Qualifiers: Hypertension type: essential hypertension Qualified Code(s): I10 - Essential (primary) hypertension Status: Chronic (8) Thoracic spine fracture Status: Acute Plan: PAIN CONTROL, T SPINE CT - Allergies Allergies/Adverse Reactions: Allergies Allergy/AdvReac Type Severity Reaction Status Date / Time No Known Drug Allergies Allergy Verified 03/19/17 15:35
[2018-05-29] MEDS: MESALAMINE PO SCH (12:30)
[2018-05-29] MEDS ORDERED: ZANAFLEX PO SCH (13:00)
[2018-05-29] MEDS ORDERED: KLONOPIN TAB 0.5 MG PO SCH (13:00)
[2018-05-29] MEDS: CYMBALTA PO SCH (13:03)
[2018-05-29] MEDS: ZyPREXA TAB 5 MG PO SCH ×2 (13:03→20:09)
[2018-05-29] MEDS: PERCOCET TAB 5/325 MG PO PRN ×2 (13:03→20:10)
--- NOTE | 2018-05-29 13:32 | CT ---
CT of the thoracic spine without contrast Clinical indication: Acute thoracic spine pain Technique: A noncontrast CT of the thoracic spine is performed in the axial plane with subsequent reconstruction in the sagittal and coronal planes for improved sensitivity. Findings: A compression fracture of the T7 vertebral body is observed. There is moderate to severe height loss upon both the superior and inferior endplate. The vertebral body appears slightly sclerotic which indicates this is likely in the subacute phase. There is a cortical step-off identified along the posterior 3rd of the superior endplate. There is residual subcortical gas identified along the superior endplate. There is no evidence of aggressive retropulsion at this time. Thoracic spine maintains anatomic alignment. There is mild degenerative wedging of the anterior margin of the T1 vertebral body associated with degenerative disc disease and endplate spondylosis at C7-T1. Patient is status post anterior cervical spine fusion with discectomy and spacer placement at multiple levels of the partially included lower cervical spine. Multilevel endplate spondylosis is evident. There is also a chronic appearing compression fracture of the L1 vertebral body with moderate height loss. As previously described within the lung bases there are calcified pleural nodules associated with chronic linear fiber atelectatic change which may be associated with prior asbestos exposure. Mild biapical paraseptal emphysematous changes noted. Otherwise, the imaged lung adames demonstrate no acute infiltrates. There are no paraspinal fluid collections identified. There is mild paravertebral edema at the level of T7. Impression: Probable subacute stage compression fracture of the T7 vertebral body with moderate to severe height loss without aggressive posterior retropulsion associated with underlying osteopenia A chronic compression fracture at L1 with moderate height loss Multilevel thoracic spondylosis. Other chronic degenerative and incidental findings as discussed above. Reported By:
[2018-05-29] MEDS: COLACE CAP 100 MG PO PRN (20:09)
[2018-05-29] MEDS: FLOMAX PO SCH (20:09)
[2018-05-29] MEDS: MILK OF MAGNESIA PO PRN (20:09)
[2018-05-30] MEDS: NS 1000 ML 1,000 ML IV SCH (03:19)
[2018-05-30 06:40] LABS: BASOPHILS # (AUTO) 0.1 X10^3/uL (0.0-0.1); BASOPHILS % (AUTO) 0.6 % (0.2-1.0); EOSINOPHILS # (AUTO) 0.3 x10^3/uL (0.0-0.2); EOSINOPHILS % (AUTO) 3.4 % (0.9-2.9); HEMATOCRIT 36.4 % (42.0-54.0); HEMOGLOBIN 12.1 g/dL (13.5-18.0); LYMPHOCYTES # (AUTO) 1.8 X10^3/uL (1.3-2.9); LYMPHOCYTES % (AUTO) 17.7 % (21.0-51.0); MEAN CORPUSCULAR HEMOGLOBIN 32.4 pg (27.0-34.0); MEAN CORPUSCULAR HGB CONC 33.3 g/dL (33.0-35.0); MEAN CORPUSCULAR VOLUME 97.2 fL (80.0-100.0); MEAN PLATELET VOLUME 8.8 fL (7.4-11.0); MONOCYTES # (AUTO) 0.8 x10^3/uL (0.3-0.8); MONOCYTES % (AUTO) 7.7 % (0.0-13.0); NEUTROPHILS # (AUTO) 7.1 x10^3/uL (2.2-4.8); NEUTROPHILS % (AUTO) 70.6 % (42.0-75.0); PLATELET COUNT 252 X10^3/uL (150.0-450.0); RED BLOOD COUNT 3.75 X10^6/uL (4.7-6.0); RED CELL DISTRIBUTION WIDTH 14.7 % (11.6-16.5); WHITE BLOOD COUNT 10.1 X10^3/uL (3.6-10.0)
[2018-05-30 06:42] LABS: ALANINE AMINOTRANSFERASE 14 Units/L (12-78); ALBUMIN 3.1 g/dL (3.4-5.0); ALKALINE PHOSPHATASE 91 Units/L (46-116); ASPARTATE AMINO TRANSFERASE 13 Units/L (15-37); BLOOD UREA NITROGEN 16 mg/dL (7-18); CALCIUM 8.5 mg/dL (8.5-10.1); CARBON DIOXIDE 25.3 mmol/L (21-32); CHLORIDE 108 mmol/L (98-107); COR CA(FOR HYPOALB) 9.2 mg/dL (8.5-10.1); CREATININE 1.11 mg/dL (0.70-1.30); SODIUM 142 mmol/L (136-145); TOTAL PROTEIN 6.2 g/dL (6.4-8.2); eGFR NON BLACK RACES > 60 (>60)
[2018-05-30] MEDS: PERCOCET TAB 5/325 MG PO PRN (09:04)
[2018-05-30] MEDS: COLACE CAP 100 MG PO PRN (09:04)
[2018-05-30] MEDS: ZyPREXA TAB 5 MG PO SCH (09:04)
[2018-05-30] MEDS: FLOMAX PO SCH (09:04)
[2018-05-30] MEDS: MILK OF MAGNESIA PO PRN (09:04)
[2018-05-30] MEDS: MESALAMINE PO SCH (11:12)
[2018-05-30] MEDS: CYMBALTA PO SCH (11:12)
[2018-05-30 13:51] VITALS: BP 119/69
== END 2018-05-30 14:05 | disposition home or self-care (01) ==
LOC: MED/SURG 15:34 → ER 15:34 → MED/SURG 21:08
PROVIDERS: ADMIT Internal Medicine; ATTEND Internal Medicine
DX: K52.89 Other specified noninfective gastroenteritis and colitis; I10 Essential (primary) hypertension; R11.2 Nausea with vomiting, unspecified; N40.1 Benign prostatic hyperplasia with lower urinary tract symptoms; R26.89 Other abnormalities of gait and mobility; J44.0 Chronic obstructive pulmonary disease with (acute) lower respiratory infection; R94.4 Abnormal results of kidney function studies; F31.76 Bipolar disorder, in full remission, most recent episode depressed; R10.84 Generalized abdominal pain; K44.9 Diaphragmatic hernia without obstruction or gangrene; R19.7 Diarrhea, unspecified; M48.54XA Collapsed vertebra, not elsewhere classified, thoracic region, initial encounter for fracture; D72.828 Other elevated white blood cell count
CPT/HCPCS: 36415; 71010; 71045; 72128; 74176; 80053; 80307; 81003; 82150; 82550; 82553; 83690; 84484; 85025; 96365; 96367; 96374; 96375; 97162; 99218; 99282; 99284; A4222; Q0169; S0028; G0378; G0434; J1885; J2405; J7030

== ENCOUNTER 2019-03-07 11:21 | Observation (INO) ==
[2019-03-07 13:03] LABS: BASOPHILS % (AUTO) 0.7 % (0.2-1.0); EOSINOPHILS # (AUTO) 0.2 x10^3/uL (0.0-0.2); EOSINOPHILS % (AUTO) 3.9 % (0.9-2.9); LYMPHOCYTES # (AUTO) 1.8 X10^3/uL (1.3-2.9); LYMPHOCYTES % (AUTO) 35.6 % (21.0-51.0); MEAN CORPUSCULAR HEMOGLOBIN 31.7 pg (27.0-34.0); MEAN CORPUSCULAR HGB CONC 33.2 g/dL (33.0-35.0); MEAN CORPUSCULAR VOLUME 95.4 fL (80.0-100.0); MEAN PLATELET VOLUME 7.1 fL (7.4-11.0); MONOCYTES # (AUTO) 0.5 x10^3/uL (0.3-0.8); MONOCYTES % (AUTO) 9.1 % (0.0-13.0); NEUTROPHILS # (AUTO) 2.6 x10^3/uL (2.2-4.8); NEUTROPHILS % (AUTO) 50.7 % (42.0-75.0); PLATELET COUNT 176 X10^3/uL (150.0-450.0); RED BLOOD COUNT 4.72 X10^6/uL (4.7-6.0); RED CELL DISTRIBUTION WIDTH 15.5 % (11.6-16.5); WHITE BLOOD COUNT 5.1 X10^3/uL (3.6-10.0)
[2019-03-07 13:14] LABS: ALANINE AMINOTRANSFERASE 35 Units/L (12-78); ALBUMIN 3.4 g/dL (3.4-5.0); ALKALINE PHOSPHATASE 54 Units/L (46-116); ASPARTATE AMINO TRANSFERASE 24 Units/L (15-37); BLOOD UREA NITROGEN 29 mg/dL (7-18); CALCIUM 8.1 mg/dL (8.5-10.1); CARBON DIOXIDE 22.5 mmol/L (21-32); CHLORIDE 106 mmol/L (98-107); CREATININE 1.88 mg/dL (0.70-1.30); SODIUM 139 mmol/L (136-145); TOTAL PROTEIN 6.7 g/dL (6.4-8.2); eGFR NON BLACK RACES 38 (>60)
[2019-03-07] MEDS: NS 1000 ML 1,000 ML IV SCH (13:28)
[2019-03-07] MEDS: PERCOCET TAB 5/325 MG PO PRN ×2 (14:49→21:12)
[2019-03-07 14:54] LABS: BILIRUBIN,URINE NEGATIVE (NEGATIVE); BLOOD/HEMOGLOBIN,URINE 1+ (NEGATIVE); GLUCOSE, URINE NEGATIVE (NEGATIVE); KETONES,URINE NEGATIVE (NEGATIVE); LEUKOCYTE ESTERASE ,URINE NEGATIVE (NEGATIVE); NITRITES,URINE NEGATIVE (NEGATIVE); PROTEIN,URINE 2+ (NEGATIVE); UROBILINOGEN,URINE NORMAL (NORMAL)
[2019-03-07 15:00] LABS: APPEARANCE,URINE CLEAR (CLEAR); COLOR,URINE YELLOW (YELLOW)
--- NOTE | 2019-03-07 15:33 | CT ---
HISTORY: Altered mental status, weakness Study: CT brain without contrast Comparison: February 01, 2014 Technique: Multiple axial images of the brain were obtained from the skull base to the vertex without administration of IV contrast. Findings: No acute intraparenchymal hemorrhage or mass can be identified. No extra-axial fluid collections are seen. No alteration in the attenuation of the brain parenchyma can be identified to suggest acute or subacute ischemic change. Ventricles sulci, cisterns demonstrate appearance consistent with mild degree of generalized atrophy. Patchy areas of decreased attenuation within the periventricular, subcortical, and subinsular matter suggest changes of chronic small vessel ischemic disease. If symptoms or clinical concern persist recommend continued follow-up for further evaluation. IMPRESSION: No acute intracranial process can be identified. Mild generalized atrophy with findings consistent with changes of chronic small vessel ischemic disease. Reported By:
[2019-03-07 17:30] VITALS: BMI 20.5
[2019-03-07] MEDS ORDERED: PHENERGAN TAB 25 MG PO PRN (21:42)
[2019-03-07] MEDS ORDERED: ULTRAM PO PRN (21:42)
[2019-03-08] MEDS: KLONOPIN TAB 1 MG PO SCH ×2 (00:34→21:42)
[2019-03-08] MEDS: NS 1000 ML 1,000 ML IV SCH ×2 (04:14→15:56)
[2019-03-08 05:09] LABS: BASOPHILS % (AUTO) 0.6 % (0.2-1.0); EOSINOPHILS # (AUTO) 0.2 x10^3/uL (0.0-0.2); EOSINOPHILS % (AUTO) 3.7 % (0.9-2.9); HEMATOCRIT 42.6 % (42.0-54.0); HEMOGLOBIN 14.1 g/dL (13.5-18.0); LYMPHOCYTES # (AUTO) 2.7 X10^3/uL (1.3-2.9); LYMPHOCYTES % (AUTO) 40.8 % (21.0-51.0); MEAN CORPUSCULAR HEMOGLOBIN 31.7 pg (27.0-34.0); MEAN CORPUSCULAR HGB CONC 33.1 g/dL (33.0-35.0); MEAN CORPUSCULAR VOLUME 95.8 fL (80.0-100.0); MEAN PLATELET VOLUME 7.8 fL (7.4-11.0); MONOCYTES # (AUTO) 0.6 x10^3/uL (0.3-0.8); MONOCYTES % (AUTO) 8.4 % (0.0-13.0); NEUTROPHILS # (AUTO) 3.1 x10^3/uL (2.2-4.8); NEUTROPHILS % (AUTO) 46.5 % (42.0-75.0); PLATELET COUNT 172 X10^3/uL (150.0-450.0); RED BLOOD COUNT 4.44 X10^6/uL (4.7-6.0); RED CELL DISTRIBUTION WIDTH 15.2 % (11.6-16.5); WHITE BLOOD COUNT 6.6 X10^3/uL (3.6-10.0)
[2019-03-08 05:23] LABS: ALANINE AMINOTRANSFERASE 39 Units/L (12-78); ALBUMIN 3.4 g/dL (3.4-5.0); ALKALINE PHOSPHATASE 52 Units/L (46-116); ASPARTATE AMINO TRANSFERASE 25 Units/L (15-37); BLOOD UREA NITROGEN 24 mg/dL (7-18); CALCIUM 8.1 mg/dL (8.5-10.1); CHLORIDE 108 mmol/L (98-107); CREATININE 1.61 mg/dL (0.70-1.30); SODIUM 140 mmol/L (136-145); TOTAL PROTEIN 6.7 g/dL (6.4-8.2); eGFR NON BLACK RACES 45 (>60)
[2019-03-08] MEDS: SODIUM BICARBONATE TAB 650MG PO SCH ×4 (09:40→21:43)
[2019-03-08] MEDS: MEGACE PO SCH ×2 (09:40→21:42)
[2019-03-08] MEDS: PEPCID TAB 20 MG PO SCH (09:40)
[2019-03-08] MEDS: XANAX PO PRN (10:55)
[2019-03-08] MEDS: PERCOCET TAB 5/325 MG PO PRN ×2 (10:55→17:32)
--- NOTE | 2019-03-08 11:25 | DR.UPDATE ---
H&P Update History and Physical Update: History and Physical reviewed and patient examined. Changes noted: Yes with the following: RETURNED TO THE OFFICE TODAY WITH COMPLAINTS OF WEAKNESS, DECREASED APPETITE, AND CONFUSION AT TIMES. HE WAS ADMITTED FOR FURTHER EVALUATION AND TREATMENT OF DEHYDRATION, WEAKNESS, AND AMS. ON ADMISSION, VITALS WERE 97.9-96-18-96%-116/79. LABS WERE OBTAINED. ABNORMAL LAB VALUES INCLUDE THE FOLLOWING: BUN 29, CREATININE 1.88, GLUCOSE 101, CALCIUM 8.1. URINALYSIS WAS UNREMARKABLE. BRAIN CT REVEALED: No acute intracranial process can be identified. Mild generalized atrophy with findings consistent with changes of chronic small vessel ischemic disease. WE STARTED NORMAL SALINE AT 80ML/HR AND WILL RESUME HIS HOME MEDICATIONS. OTHERWISE, WE WILL FOLLOW UP WITH AM LABS AND CONTINUE TO MONITOR. Prescription drug monitoring program results: PDMP was not reviewed
[2019-03-08] MEDS: PATIENT'S HOME MEDICATION (Linaclotide [Linzess] 72 MCG) PO SCH (12:49)
[2019-03-08] MEDS: LOVENOX INJ 40 MG SYR SC SCH (15:07)
--- NOTE | 2019-03-08 19:43 | PCM.PROG ---
Progress Note - Progress Note for Day of Date of Exam: 03/08/19 - Subjective Subjective: IS BEING TREATED FOR DEHYDRATION, WEAKNESS, AND ALTERED MENTAL STATUS. TODAY, HE IS ALERT AND ORIENTED, LYING IN BED ON MORNING ROUNDS. HE CONTINUES WITH COMPLAINTS OF WEAKNESS. ON EXAMINATION, HEART IS REGULAR IN RATE AND RHYTHM. BILATERAL LUNGS ARE NOTED WITH DIMINISHED LUNG SOUNDS T HROUGHOUT. ABDOMEN IS ROUND, SOFT, AND NON-TENDER WITH NORMAL BOWEL SOUNDS THROUGHOUT. HIS VITALS THIS MORNING ARE: 98.0-94-18-95%-106/64. LABS WERE OBTAINED. ABNORMAL LAB VALUES INCLUDE THE FOLLOWING: RBC 4.44, CHLORIDE 108, BUN 24, CREATININE 1.61, CALCIUM 8.1. URINALYSIS WAS UNREMARKABLE. HE IS CURRENTLY RECEIVING NORMAL SALINE AT 80ML/HR AND HOME MEDS WERE RESUMED. WE WILL CONTINUE WITH CURRENT PLAN OF CARE TODAY. OTHERWISE, WE WILL FOLLOW UP WITH AM LABS AND CONTINUE TO MONITOR. - Past Medical Family Social History Past Med/Fam/Surg Hx: No changes since H&P Allergies: Allergies No Known Drug Allergies Allergy (Verified 03/19/17 15:35) - Review of Systems ROS: No change since H&P - Vital Signs and I&O's Vital Signs: Temperature 97.7 F Pulse Rate [Right Brachial] 77 Respiratory Rate 19 Blood Pressure [Left Arm] 119/69 Blood Pressure [Right Arm] 132/67 Blood Pressure 119/69 O2 Sat by Pulse Oximetry 95 Intake and Output: Intake & Output 03/06/19 03/07/19 03/08/19 03/09/19 11:59 11:59 11:59 11:59 Intake Total 1520 / 1520 1020 / 1020 Output Total 200 / 200 Balance 1520 / 1520 820 / 820 - Physical Exam Oriented: Normal Eyes: Normal Ear: Normal Nose: Normal Throat: Normal Respiratory: Generalized, Diminished Cardiovascular: Normal : Normal Auscultation: Bowel Sounds: Normal Palpation: Normal Tenderness: Normal Skin: Normal Musculoskeletal: Normal Psychiatric: Normal Mood Description: Calm Affect: Normal Speech Pattern: Clear - Laboratory and Diagnostics Result Diagrams: 03/08/19 04:14 03/08/19 04:14 Labs: Laboratory WBC 6.6 X10^3/uL (3.6-10.0) 03/08/19 04:14 RBC 4.44 X10^6/uL (4.7-6.0) L 03/08/19 04:14 Hgb 14.1 g/dL (13.5-18.0) 03/08/19 04:14 Hct 42.6 % (42.0-54.0) 03/08/19 04:14 MCV 95.8 fL (80.0-100.0) 03/08/19 04:14 MCH 31.7 pg (27.0-34.0) 03/08/19 04:14 MCHC 33.1 g/dL (33.0-35.0) 03/08/19 04:14 RDW 15.2 % (11.6-16.5) 03/08/19 04:14 Plt Count 172 X10^3/uL (150.0-450.0) 03/08/19 04:14 MPV 7.8 fL (7.4-11.0) 03/08/19 04:14 Neut % (Auto) 46.5 % (42.0-75.0) 03/08/19 04:14 Lymph % (Auto) 40.8 % (21.0-51.0) 03/08/19 04:14 [place] % (Auto) 8.4 % (0.0-13.0) 03/08/19 04:14 Eos % (Auto) 3.7 % (0.9-2.9) H 03/08/19 04:14 Baso % (Auto) 0.6 % (0.2-1.0) 03/08/19 04:14 Neut # (Auto) 3.1 x10^3/uL (2.2-4.8) 03/08/19 04:14 Lymph # (Auto) 2.7 X10^3/uL (1.3-2.9) 03/08/19 04:14 [place] # (Auto) 0.6 x10^3/uL (0.3-0.8) 03/08/19 04:14 Eos # (Auto) 0.2 x10^3/uL (0.0-0.2) 03/08/19 04:14 Baso # (Auto) 0.0 X10^3/uL (0.0-0.1) 03/08/19 04:14 Absolute Nucleated RBC 0.1 /100WBC 03/08/19 04:14 Sodium 140 mmol/L (136-145) 03/08/19 04:14 Corrected Sodium TNP 03/08/19 04:14 Potassium 4.3 mmol/L (3.5-5.1) 03/08/19 04:14 Chloride 108 mmol/L (98-107) H 03/08/19 04:14 Carbon Dioxide 22.0 mmol/L (21-32) 03/08/19 04:14 BUN 24 mg/dL (7-18) H 03/08/19 04:14 Creatinine 1.61 mg/dL (0.70-1.30) H 03/08/19 04:14 Est GFR (MDRD) Af Amer 55 (>60) L 03/08/19 04:14 Est GFR (MDRD) Non-Af 45 (>60) L 03/08/19 04:14 Glucose 91 mg/dL (65-99) 03/08/19 04:14 Calcium 8.1 mg/dL (8.5-10.1) L 03/08/19 04:14 Corrected Calcium TNP 03/08/19 04:14 Total Bilirubin 0.30 mg/dL (0.2-1.0) 03/08/19 04:14 AST 25 Units/L (15-37) 03/08/19 04:14 ALT 39 Units/L (12-78) 03/08/19 04:14 Alkaline Phosphatase 52 Units/L (46-116) 03/08/19 04:14 Total Protein 6.7 g/dL (6.4-8.2) 03/08/19 04:14 Albumin 3.4 g/dL (3.4-5.0) 03/08/19 04:14 Globulin 3.3 g/dL (2.5-4.5) 03/08/19 04:14 Albumin/Globulin Ratio 1.0 Ratio (1.1-2.1) L 03/08/19 04:14 Specimen Type Clean catch urine 03/07/19 14:45 Urine Color Yellow (YELLOW) 03/07/19 14:45 Urine Appearance Clear (CLEAR) 03/07/19 14:45 Urine pH 5.0 (5.0 - 8.0) 03/07/19 14:45 Ur Specific [place] 1.025 (1.000-1.030) 03/07/19 14:45 Urine Protein 2+ (NEGATIVE) 03/07/19 14:45 Urine Glucose (UA) Negative (NEGATIVE) 03/07/19 14:45 Urine Ketones Negative (NEGATIVE) 03/07/19 14:45 Urine Occult Blood 1+ (NEGATIVE) 03/07/19 14:45 Urine Nitrite Negative (NEGATIVE) 03/07/19 14:45 Urine Bilirubin Negative (NEGATIVE) 03/07/19 14:45 Urine Urobilinogen Normal (NORMAL) 03/07/19 14:45 Ur Leukocyte Esterase Negative (NEGATIVE) 03/07/19 14:45 - Plan (1) Dehydration Status: Acute Plan: NORMAL SALINE AT 80ML/HR, CONTINUE TO MONITOR (2) Generalized weakness Status: Acute (3) Altered mental status Status: Acute Qualifiers: Altered mental status type: transient alteration of awareness Qualified Code(s): R40.4 - Transient alteration of awareness
[2019-03-08] MEDS ORDERED: SEROquel TAB 25 mg PO SCH (21:00)
[2019-03-08] MEDS ORDERED: LIPITOR TAB 40 MG PO SCH (21:00)
[2019-03-09] MEDS: NS 1000 ML 1,000 ML IV SCH (04:52)
[2019-03-09 05:28] LABS: BASOPHILS % (AUTO) 0.6 % (0.2-1.0); EOSINOPHILS # (AUTO) 0.3 x10^3/uL (0.0-0.2); EOSINOPHILS % (AUTO) 4.6 % (0.9-2.9); HEMATOCRIT 36.8 % (42.0-54.0); HEMOGLOBIN 12.4 g/dL (13.5-18.0); LYMPHOCYTES # (AUTO) 2.5 X10^3/uL (1.3-2.9); LYMPHOCYTES % (AUTO) 38.4 % (21.0-51.0); MEAN CORPUSCULAR HEMOGLOBIN 32.2 pg (27.0-34.0); MEAN CORPUSCULAR HGB CONC 33.8 g/dL (33.0-35.0); MEAN CORPUSCULAR VOLUME 95.2 fL (80.0-100.0); MONOCYTES # (AUTO) 0.6 x10^3/uL (0.3-0.8); MONOCYTES % (AUTO) 8.8 % (0.0-13.0); NEUTROPHILS # (AUTO) 3.1 x10^3/uL (2.2-4.8); NEUTROPHILS % (AUTO) 47.6 % (42.0-75.0); PLATELET COUNT 163 X10^3/uL (150.0-450.0); RED BLOOD COUNT 3.87 X10^6/uL (4.7-6.0); RED CELL DISTRIBUTION WIDTH 15.5 % (11.6-16.5); WHITE BLOOD COUNT 6.4 X10^3/uL (3.6-10.0)
[2019-03-09 05:33] LABS: ALANINE AMINOTRANSFERASE 35 Units/L (12-78); ALBUMIN 2.7 g/dL (3.4-5.0); ALKALINE PHOSPHATASE 42 Units/L (46-116); ASPARTATE AMINO TRANSFERASE 21 Units/L (15-37); BLOOD UREA NITROGEN 20 mg/dL (7-18); CALCIUM 7.7 mg/dL (8.5-10.1); CARBON DIOXIDE 22.6 mmol/L (21-32); CHLORIDE 112 mmol/L (98-107); COR CA(FOR HYPOALB) 8.7 mg/dL (8.5-10.1); SODIUM 143 mmol/L (136-145); TOTAL PROTEIN 5.3 g/dL (6.4-8.2); eGFR NON BLACK RACES 53 (>60)
[2019-03-09] MEDS: SODIUM BICARBONATE TAB 650MG PO SCH (08:53)
[2019-03-09] MEDS: PEPCID TAB 20 MG PO SCH (08:53)
[2019-03-09] MEDS: PERCOCET TAB 5/325 MG PO PRN ×2 (08:53)
[2019-03-09] MEDS: XANAX PO PRN (08:53)
[2019-03-09] MEDS: MEGACE PO SCH (08:54)
[2019-03-09] MEDS: LOVENOX INJ 40 MG SYR SC SCH (08:54)
[2019-03-09] MEDS: PATIENT'S HOME MEDICATION (Linaclotide [Linzess] 72 MCG) PO SCH (08:57)
[2019-03-09 10:53] VITALS: BP 135/85
== END 2019-03-09 12:40 | disposition home or self-care (01) ==
LOC: MED/SURG
PROVIDERS: ADMIT Internal Medicine; ATTEND Internal Medicine
DX: F41.8 Other specified anxiety disorders; R29.6 Repeated falls; E03.8 Other specified hypothyroidism; R40.4 Transient alteration of awareness; K21.9 Gastro-esophageal reflux disease without esophagitis; R26.89 Other abnormalities of gait and mobility; E86.0 Dehydration; R53.1 Weakness; I26.09 Other pulmonary embolism with acute cor pulmonale; M54.89 Other dorsalgia; E78.2 Mixed hyperlipidemia
CPT/HCPCS: 36415; 70450; 80053; 81003; 85025; 94760; 96367; 96372; 97162; A4216; A4222; S0179; G0378; J1650; J7030

== ENCOUNTER 2019-08-02 08:19 | Observation (INO) ==
[2019-08-02] MEDS ORDERED: TUSSIONEX PENNKINETIC SUSP PO PRN (10:29)
[2019-08-02] MEDS ORDERED: NS 1/2 1000 ML IV 1,000 ML IV ONE (10:50)
[2019-08-02] MEDS: ROBITUSSIN DM PO SCH ×4 (11:10→21:06)
[2019-08-02] MEDS: VSL#3 PO SCH (11:10)
[2019-08-02] MEDS: LEVAQUIN PREMIX IV 750 MG 750 MG/150 ML BAG IV SCH (11:10)
[2019-08-02] MEDS: NS 1/2 1000 ML IV 1,000 ML IV SCH (11:10)
[2019-08-02 11:45] LABS: BASOPHILS # (AUTO) 0.1 X10^3/uL (0.0-0.1); BASOPHILS % (AUTO) 0.8 % (0.2-1.0); EOSINOPHILS # (AUTO) 0.7 x10^3/uL (0.0-0.2); EOSINOPHILS % (AUTO) 10.9 % (0.9-2.9); HEMOGLOBIN 12.8 g/dL (13.5-18.0); LYMPHOCYTES # (AUTO) 1.8 X10^3/uL (1.3-2.9); LYMPHOCYTES % (AUTO) 28.5 % (21.0-51.0); MEAN CORPUSCULAR HEMOGLOBIN 30.9 pg (27.0-34.0); MEAN CORPUSCULAR HGB CONC 32.8 g/dL (33.0-35.0); MEAN CORPUSCULAR VOLUME 94.1 fL (80.0-100.0); MEAN PLATELET VOLUME 7.7 fL (7.4-11.0); MONOCYTES # (AUTO) 0.7 x10^3/uL (0.3-0.8); MONOCYTES % (AUTO) 10.5 % (0.0-13.0); NEUTROPHILS # (AUTO) 3.2 x10^3/uL (2.2-4.8); NEUTROPHILS % (AUTO) 49.3 % (42.0-75.0); PLATELET COUNT 251 X10^3/uL (150.0-450.0); RED BLOOD COUNT 4.15 X10^6/uL (4.7-6.0); RED CELL DISTRIBUTION WIDTH 13.5 % (11.6-16.5); WHITE BLOOD COUNT 6.5 X10^3/uL (3.6-10.0)
[2019-08-02 11:47] VITALS: BMI 20.5
[2019-08-02 11:50] LABS: ALANINE AMINOTRANSFERASE 19 Units/L (12-78); ALBUMIN 3.2 g/dL (3.4-5.0); ALKALINE PHOSPHATASE 60 Units/L (46-116); ASPARTATE AMINO TRANSFERASE 18 Units/L (15-37); BLOOD UREA NITROGEN 10 mg/dL (7-18); CALCIUM 8.8 mg/dL (8.5-10.1); CARBON DIOXIDE 25.2 mmol/L (21-32); CHLORIDE 107 mmol/L (98-107); COR CA(FOR HYPOALB) 9.4 mg/dL (8.5-10.1); CREATININE 1.33 mg/dL (0.70-1.30); SODIUM 139 mmol/L (136-145); TOTAL PROTEIN 6.6 g/dL (6.4-8.2); eGFR NON BLACK RACES 56 (>60)
--- NOTE | 2019-08-02 12:10 | RAD ---
HISTORYPNEUMONIASTUDYCHEST, PA/LAT ADULTCOMPARISONChest film May 28, 2018.FINDINGSThe trachea is midline. The patient has had prior lower C-spine anterior fusion surgery. The cardiac silhouette is unremarkable. There is chronic elevation the right hemidiaphragm. The lungs are clear without focal infiltrate or effusion. The bony thorax is unremarkable.IMPRESSIONNo acute cardiopulmonary disease.Electronically signed by: MARLEY KRAFT (Aug 02, 2019 12:09:06)
[2019-08-02] MEDS: DUONEB 0.5 MG/3 MG (3 mL) NEB SCH ×3 (12:53→21:20)
[2019-08-02] MEDS: FORTAZ or TAZICEF VIAL INJ 1 G in NS 100 ML IV + SPIKE MINIBAG* 100 ML IV SCH ×3 (13:43→21:06)
[2019-08-02] MEDS: NEURONTIN CAP 300 MG PO SCH ×2 (14:39→21:01)
[2019-08-02] MEDS: NORCO 10/325 TAB PO PRN ×2 (14:40→21:01)
[2019-08-02] MEDS: XANAX PO PRN (14:41)
[2019-08-02] MEDS ORDERED: BENADRYL CAP 50 MG PO PRN (15:23)
[2019-08-02] MEDS ORDERED: PHENERGAN TAB 25 MG PO PRN (19:04)
[2019-08-02] MEDS: KLONOPIN TAB 0.5 MG PO PRN (21:00)
[2019-08-02] MEDS: COLACE CAP 100 MG PO SCH (21:00)
[2019-08-02] MEDS: PEPCID TAB 20 MG PO SCH (21:00)
[2019-08-02] MEDS: FLOMAX PO SCH (21:00)
[2019-08-02] MEDS: MILK OF MAGNESIA PO SCH ×2 (21:05→21:06)
[2019-08-03] MEDS ORDERED: NS 1/2 1000 ML IV 1,000 ML IV ONE (01:11)
[2019-08-03] MEDS: XANAX PO PRN ×2 (05:05→18:05)
[2019-08-03] MEDS: NORCO 10/325 TAB PO PRN ×3 (05:05→19:40)
[2019-08-03] MEDS: NEURONTIN CAP 300 MG PO SCH ×4 (05:05→22:10)
[2019-08-03 05:48] LABS: ALANINE AMINOTRANSFERASE 18 Units/L (12-78); ALBUMIN 3.1 g/dL (3.4-5.0); ALKALINE PHOSPHATASE 61 Units/L (46-116); ASPARTATE AMINO TRANSFERASE 15 Units/L (15-37); BLOOD UREA NITROGEN 9 mg/dL (7-18); CALCIUM 8.8 mg/dL (8.5-10.1); CARBON DIOXIDE 23.7 mmol/L (21-32); CHLORIDE 106 mmol/L (98-107); COR CA(FOR HYPOALB) 9.5 mg/dL (8.5-10.1); CREATININE 1.26 mg/dL (0.70-1.30); SODIUM 142 mmol/L (136-145); TOTAL PROTEIN 6.6 g/dL (6.4-8.2); eGFR NON BLACK RACES 60 (>60)
[2019-08-03 05:53] LABS: BASOPHILS % (AUTO) 0.6 % (0.2-1.0); EOSINOPHILS # (AUTO) 0.7 x10^3/uL (0.0-0.2); EOSINOPHILS % (AUTO) 8.8 % (0.9-2.9); HEMATOCRIT 37.8 % (42.0-54.0); HEMOGLOBIN 12.6 g/dL (13.5-18.0); LYMPHOCYTES % (AUTO) 26.4 % (21.0-51.0); MEAN CORPUSCULAR HEMOGLOBIN 31.8 pg (27.0-34.0); MEAN CORPUSCULAR HGB CONC 33.4 g/dL (33.0-35.0); MEAN CORPUSCULAR VOLUME 95.3 fL (80.0-100.0); MEAN PLATELET VOLUME 8.5 fL (7.4-11.0); MONOCYTES # (AUTO) 0.7 x10^3/uL (0.3-0.8); MONOCYTES % (AUTO) 9.1 % (0.0-13.0); NEUTROPHILS # (AUTO) 4.2 x10^3/uL (2.2-4.8); NEUTROPHILS % (AUTO) 55.1 % (42.0-75.0); PLATELET COUNT 252 X10^3/uL (150.0-450.0); RED BLOOD COUNT 3.96 X10^6/uL (4.7-6.0); RED CELL DISTRIBUTION WIDTH 13.6 % (11.6-16.5); WHITE BLOOD COUNT 7.7 X10^3/uL (3.6-10.0)
[2019-08-03] MEDS: FORTAZ or TAZICEF VIAL INJ 1 G in NS 100 ML IV + SPIKE MINIBAG* 100 ML IV SCH ×4 (06:25→22:20)
[2019-08-03] MEDS: NS 1/2 1000 ML IV 1,000 ML IV SCH (06:25)
--- NOTE | 2019-08-03 07:20 | RAD ---
HISTORYShortness of breathSTUDYCHEST, 1 VIEWCOMPARISONMarch 2019FINDINGSThe heart is within normal limits in size. The josue are normal. The aorta is mildly ectatic. The right hemidiaphragm is chronically elevated. The lung adames are clear. No pleural effusions are identified. Bony thorax is unremarkable with the exception of chronic rotator cuff disease on the right.IMPRESSIONNo acute infiltratesChronically elevated right hemidiaphragmElectronically signed by: ABENA RAO (Aug 03, 2019 07:19:40)
--- NOTE | 2019-08-03 08:36 | DR.H&P ---
H&P - History & Physical for Day of: H&P Date: 08/02/19 - Chief Complaint Chief Complaint: COUGH, SOB, FATIGUE, DECREASED APPETITE, WEAKNESS - History of Present Illness History of Present Illness: IS A 74 YEAR OLD PATIENT OF OURS WHO P RESENTED TO THE HOSPITAL A DIRECT ADMISSION DUE TO COMPLAINTS OF A PRODUCTIVE COUGH, SHORTNESS OF BREATH, FATIGUE, DECREASED APPETITE, AND WEAKNESS. SYMPTOMS STARTED ABOUT A WEEK PRIOR. PMH INCLUDES CAD, COPD, GERD, COLITIS, UTIs, BPH, ANEMIA, BIPOLAR DISORDER, DEPRESSION. ON ARRIVAL TO THE HOSPITAL, VITALS WERE 97.9-85-18-93%-120/72. LABS WERE OBTAINED. ABNORMAL LAB VALUES INCLUDE THE FOLLOWING: RBC 4.15, HGB 12.8, HCT 39.0, CREATININE 1.33, ALBUMIN 3.2. BLOOD AND SPUTUM CULTURES WERE OBTAINED. A CHEST XRAY WAS OBTAINED AND REVEALED: NO ACUTE CARDIOPULMONARY DISEASE. HE WAS STARTED ON 1/2NS AT 75 ML/HR, IV FORTAZ, IV LEVAQUIN, RESPIRATORY TX, SUPPLEMENTAL OXYGEN, AND HOME MEDICATIONS WERE RESUMED. WE PLAN TO FOLLOW UP WITH AM LABS AND CHEST XRAY AND CONTINUE TO MONITOR. - Past Medical History Past Medical History: Hypertension, Arthritis, Kidney Stones Additional Medical History: BIPOLAR DISORDER (NO MEDICATION IN 2 YEARS), BPH, HX GASTROINTESTINAL ULCER, COLITIS, HX FX (R) FOOT, PARKINSON'S, CATARACTS, UTI'S, BACK PAIN - Past Surgical History Surgical History: Abdominal Surgery, Joint Replacement, Ortho Surgery, Other Additional Surgical History: HERNIA REPAIR, ACDF SURGERY -JUN 2016 - Family History Family Medical History: [place], Coronary Artery Disease, Hypertension - Social History Does patient currently use any type of tobacco product: No Have you used tobacco products in the last 12 months: No Type of Tobacco Use: None Does any household member use tobacco: No Alcohol Use: None Drug Use: None - Medications Home Medications: No Known Drug Allergies Allergy (Verified 03/19/17 15:35) CONTINUE taking the following medications donepezil 5 mg PO DAILY 08/02/19 [History] gabapentin 300 mg PO TID 08/02/19 [History] quetiapine [Seroquel] 50 mg PO HS 08/02/19 [History] ziprasidone HCl [Geodon] 20 mg PO DAILY 08/02/19 [History] - Review of Systems Constitutional: See HPI, Weakness, Malaise, Other (DECREASED APPETITE) Eyes: No Symptoms Reported ENT: No Symptoms Reported Respiratory: See HPI, Cough, Shortness of Breath Cardiovascular: No Symptoms Reported Gastrointestinal: No Symptoms Reported Genitourinary: No Symptoms Reported Musculoskeletal: No Symptoms Reported Skin: No Symptoms Reported Neurological: See HPI, Weakness - Physical Exam Vital Signs: Temperature 99 F Pulse Rate [Right Brachial] 76 Respiratory Rate 19 Blood Pressure [Left Arm] 125/71 Blood Pressure [Right Arm] 120/72 Blood Pressure 157/78 O2 Sat by Pulse Oximetry 97 Oriented: Normal Eyes: Normal Ear: Normal Nose: Normal Throat: Normal Respiratory: Diminished Throughout Cardiovascular: Normal. negative: S3, S4, Murmur : Normal Auscultation: Bowel Sounds: Normal Palpation: Normal Tenderness: Normal Skin: Normal Musculoskeletal: Normal Psychiatric: Normal Mood Description: Calm Affect: Normal Speech Pattern: Clear - Assessment/Plan (1) Bronchopneumonia Status: Acute Plan: ADMIT, 1/2NS AT 75 ML/HR, IV FORTAZ, IV LEVAQUIN, RESPIRATORY TX, SUPPLEMENTAL OXYGEN, AND HOME MEDICATIONS WERE RESUMED (2) Dehydration Status: Acute (3) Generalized weakness Status: Acute - Allergies Allergies/Adverse Reactions: Allergies Allergy/AdvReac Type Severity Reaction Status Date / Time No Known Drug Allergies Allergy Verified 03/19/17 15:35
[2019-08-03] MEDS: ROBITUSSIN DM PO SCH ×5 (08:42→22:11)
[2019-08-03] MEDS: LEVAQUIN PREMIX IV 750 MG 750 MG/150 ML BAG IV SCH (08:42)
[2019-08-03] MEDS: FLOMAX PO SCH ×2 (08:43→22:11)
[2019-08-03] MEDS: PEPCID TAB 20 MG PO SCH ×2 (08:43→22:08)
[2019-08-03] MEDS: DEPAKOTE D.R. TAB PO SCH (08:43)
[2019-08-03] MEDS: GEODON PO SCH (08:43)
[2019-08-03] MEDS: ULTRAM PO PRN ×2 (08:43→16:43)
[2019-08-03] MEDS: VSL#3 PO SCH (08:43)
[2019-08-03] MEDS: ARICEPT TAB 5 MG PO SCH (08:44)
[2019-08-03] MEDS ORDERED: DIVALPROEX 250 MG PO SCH (09:00)
[2019-08-03] MEDS: DUONEB 0.5 MG/3 MG (3 mL) NEB SCH ×4 (09:15→20:20)
[2019-08-03] MEDS ORDERED: BENADRYL CAP/TAB 25 MG PO ONE (12:49)
[2019-08-03] MEDS: LOVENOX INJ 40 MG SYR SC SCH (12:58)
[2019-08-03] MEDS: KLONOPIN TAB 0.5 MG PO PRN (22:10)
[2019-08-03] MEDS: COLACE CAP 100 MG PO SCH (22:10)
[2019-08-03] MEDS: MILK OF MAGNESIA PO SCH (22:11)
[2019-08-04 05:24] LABS: BASOPHILS # (AUTO) 0.1 X10^3/uL (0.0-0.1); BASOPHILS % (AUTO) 0.8 % (0.2-1.0); EOSINOPHILS # (AUTO) 0.9 x10^3/uL (0.0-0.2); EOSINOPHILS % (AUTO) 13.3 % (0.9-2.9); HEMATOCRIT 32.2 % (42.0-54.0); HEMOGLOBIN 10.9 g/dL (13.5-18.0); LYMPHOCYTES % (AUTO) 28.4 % (21.0-51.0); MEAN CORPUSCULAR HEMOGLOBIN 32.2 pg (27.0-34.0); MEAN CORPUSCULAR HGB CONC 33.9 g/dL (33.0-35.0); MEAN CORPUSCULAR VOLUME 94.8 fL (80.0-100.0); MEAN PLATELET VOLUME 8.1 fL (7.4-11.0); MONOCYTES # (AUTO) 0.8 x10^3/uL (0.3-0.8); MONOCYTES % (AUTO) 11.6 % (0.0-13.0); NEUTROPHILS # (AUTO) 3.2 x10^3/uL (2.2-4.8); NEUTROPHILS % (AUTO) 45.9 % (42.0-75.0); PLATELET COUNT 238 X10^3/uL (150.0-450.0); RED BLOOD COUNT 3.39 X10^6/uL (4.7-6.0); RED CELL DISTRIBUTION WIDTH 13.7 % (11.6-16.5); WHITE BLOOD COUNT 7.1 X10^3/uL (3.6-10.0)
[2019-08-04 05:36] LABS: ALANINE AMINOTRANSFERASE 15 Units/L (12-78); ALBUMIN 2.5 g/dL (3.4-5.0); ALKALINE PHOSPHATASE 48 Units/L (46-116); ASPARTATE AMINO TRANSFERASE 14 Units/L (15-37); BLOOD UREA NITROGEN 9 mg/dL (7-18); CALCIUM 8.4 mg/dL (8.5-10.1); CARBON DIOXIDE 26.2 mmol/L (21-32); CHLORIDE 109 mmol/L (98-107); COR CA(FOR HYPOALB) 9.6 mg/dL (8.5-10.1); CREATININE 1.35 mg/dL (0.70-1.30); SODIUM 143 mmol/L (136-145); TOTAL PROTEIN 5.6 g/dL (6.4-8.2); eGFR NON BLACK RACES 55 (>60)
[2019-08-04] MEDS: FORTAZ or TAZICEF VIAL INJ 1 G in NS 100 ML IV + SPIKE MINIBAG* 100 ML IV SCH (06:39)
[2019-08-04] MEDS: NS 1/2 1000 ML IV 1,000 ML IV SCH (06:39)
[2019-08-04] MEDS: NEURONTIN CAP 300 MG PO SCH (06:40)
--- NOTE | 2019-08-04 07:41 | RAD ---
HISTORYSOBSTUDYCHEST, 1 VIEWCOMPARISONFINDINGSThe trachea is midline. The cardiac silhouette is unremarkable . The lungs are clear without focal infiltrate or effusion. There is chronic elevation right hemidiaphragm. The bony thorax is unremarkable. The patient has undergone prior anterior fusion surgeries.IMPRESSIONNo acute cardiopulmonary disease and no change from yesterday's portable chest.Electronically signed by: MARLEY KRAFT (Aug 04, 2019 07:40:26)
[2019-08-04] MEDS ORDERED: PEPCID TAB 20 MG PO SCH (09:00)
[2019-08-04] MEDS: LOVENOX INJ 40 MG SYR SC SCH (09:07)
[2019-08-04] MEDS: FLOMAX PO SCH (09:10)
[2019-08-04] MEDS: ARICEPT TAB 5 MG PO SCH (09:10)
[2019-08-04] MEDS: VSL#3 PO SCH (09:10)
[2019-08-04] MEDS: GEODON PO SCH (09:10)
[2019-08-04] MEDS: DEPAKOTE D.R. TAB PO SCH (09:10)
[2019-08-04] MEDS: NORCO 10/325 TAB PO PRN (09:10)
[2019-08-04] MEDS: XANAX PO PRN (09:12)
[2019-08-04] MEDS: ROBITUSSIN DM PO SCH ×2 (09:12→09:16)
[2019-08-04] MEDS: DUONEB 0.5 MG/3 MG (3 mL) NEB SCH (09:17)
--- NOTE | 2019-08-04 10:48 | RAD ---
HISTORYAbdominal painSTUDYKUBCOMPARISONCT abdomen 10/19/2017FINDINGSThere is mild to moderate gas distention of the colon. No significant small bowel disease is identified. There is no evidence for ascites, abdominal mass or pathologic calcification. Right hip prosthesis is present and there is IVC filter at the level of L1-2. There is a chronic compression fracture deformity at L1.IMPRESSIONDescribed findings consistent with mild colon ileus. A colon obstruction is considered less likely. Postsurgical findings as noted.Electronically signed by: TEVIN PLATA (Aug 04, 2019 10:48:02)
[2019-08-04 12:53] VITALS: BP 96/53
[2019-08-04] MEDS ORDERED: FORTAZ or TAZICEF VIAL INJ 1 G in NS 100 ML IV + SPIKE MINIBAG* 100 ML IV SCH (21:00)
[2019-08-05] MEDS ORDERED: LEVAQUIN PREMIX IV 750 MG 750 MG/150 ML BAG IV SCH (09:00)
== END 2019-08-04 12:30 | disposition home or self-care (01) ==
LOC: MED/SURG
PROVIDERS: ADMIT Internal Medicine; ATTEND Internal Medicine
DX: R53.1 Weakness; R10.84 Generalized abdominal pain; F41.8 Other specified anxiety disorders; E86.0 Dehydration; R94.4 Abnormal results of kidney function studies; J18.0 Bronchopneumonia, unspecified organism; K21.9 Gastro-esophageal reflux disease without esophagitis; R26.89 Other abnormalities of gait and mobility; R06.02 Shortness of breath; J44.9 Chronic obstructive pulmonary disease, unspecified
CPT/HCPCS: 36415; 71010; 71020; 71045; 71046; 74000; 74018; 80053; 85025; 87040; 87070; 87205; 94640; 94760; 96360; 96361; 96372; 97165; 97535; A4222; G0378; J0713; J1650; J1956; J7050; J7620; Q0169

== ENCOUNTER 2020-05-13 16:27 | Inpatient (IN) ==
[2020-05-13 18:12] LABS: ABG ALLEN TEST POS; ABG BASE EXCESS -0.2 mmol/L (-2.0-2.0)
[2020-05-13 18:44] LABS: BASOPHILS % (AUTO) 0.2 % (0.2-1.0); HEMATOCRIT 40.9 % (42.0-54.0); HEMOGLOBIN 13.6 g/dL (13.5-18.0); LYMPHOCYTES # (AUTO) 1.7 X10^3/uL (1.3-2.9); LYMPHOCYTES % (AUTO) 15.4 % (21.0-51.0); MEAN CORPUSCULAR HEMOGLOBIN 31.9 pg (27.0-34.0); MEAN CORPUSCULAR HGB CONC 33.3 g/dL (33.0-35.0); MEAN CORPUSCULAR VOLUME 95.6 fL (80.0-100.0); MONOCYTES # (AUTO) 0.9 x10^3/uL (0.3-0.8); MONOCYTES % (AUTO) 8.6 % (0.0-13.0); NEUTROPHILS # (AUTO) 8.2 x10^3/uL (2.2-4.8); NEUTROPHILS % (AUTO) 75.8 % (42.0-75.0); PLATELET COUNT 151 X10^3/uL (150.0-450.0); RED BLOOD COUNT 4.28 X10^6/uL (4.7-6.0); RED CELL DISTRIBUTION WIDTH 13.8 % (11.6-16.5); WHITE BLOOD COUNT 10.8 X10^3/uL (3.6-10.0)
[2020-05-13 18:54] LABS: CALCIUM 8.8 mg/dL (8.5-10.1); CARBON DIOXIDE 27.1 mmol/L (21-32); COR CA(FOR HYPOALB) 9.6 mg/dL (8.5-10.1); CREATININE 1.57 mg/dL (0.70-1.30); TOTAL PROTEIN 6.6 g/dL (6.4-8.2)
[2020-05-13] MEDS: NS 1000 ML 1,000 ML IV SCH (19:00)
--- NOTE | 2020-05-13 20:37 | RAD ---
HISTORYCOVID+ RESPIRATORY DISTRESSSTUDYCHEST, 1 [id number]/05/2020FINDINGSModerate elevation of the right hemidiaphragm, unchanged. Heart size probably within normal limits. No definite change in hilar/mediastinal contours. Probable calcified pleural plaques bilaterally. No new consolidation or pleural effusion. No acute pulmonary edema. Surgical fusion involving the C-spine.IMPRESSIONNo definite acute adverse change compared to prior study.Electronically signed by: Chidi Padron (May 13, 2020 20:35:47)
[2020-05-13] MEDS: LOVENOX INJ 30 MG SYR SC SCH (21:00)
[2020-05-13] MEDS ORDERED: REMDESIVIR 200 MG in NS 250 ML IV 250 ML IV SCH (21:00)
[2020-05-13] MEDS: CIPRO IV 400 MG PREMIX* 400 MG/200 ML IV.SOLN. IV SCH (21:00)
[2020-05-13] MEDS: DUONEB 0.5 MG/3 MG (3 mL) NEB SCH (21:34)
[2020-05-13] MEDS: PULMICORT NEB TX 0.5 MG NEB SCH (21:34)
[2020-05-13] MEDS: SOLU-Medrol 40 MG VIAL IVP SCH (21:53)
[2020-05-13 23:53] LABS: BILIRUBIN,URINE NEGATIVE (NEGATIVE); BLOOD/HEMOGLOBIN,URINE 4+ (NEGATIVE); GLUCOSE, URINE NEGATIVE (NEGATIVE); KETONES,URINE NEGATIVE (NEGATIVE); LEUKOCYTE ESTERASE ,URINE NEGATIVE (NEGATIVE); NITRITES,URINE NEGATIVE (NEGATIVE); PROTEIN,URINE 3+ (NEGATIVE); UROBILINOGEN,URINE NORMAL (NORMAL)
[2020-05-14 00:07] LABS: APPEARANCE,URINE CLEAR (CLEAR); COLOR,URINE YELLOW (YELLOW); SQUAMOUS EPITHELIAL CELL,UR NEGATIVE /HPF (NEGATIVE)
[2020-05-14 00:08] LABS: AMORPHOUS SEDIMENT,UR 2+ /HPF (NEGATIVE); BACTERIA,URINE TRACE /HPF (NEGATIVE); MUCUS,URINE MANY /HPF (NEGATIVE)
[2020-05-14] MEDS: NS 1000 ML 1,000 ML IV SCH ×4 (00:32→20:56)
[2020-05-14] MEDS: DUONEB 0.5 MG/3 MG (3 mL) NEB SCH ×6 (01:33→21:35)
[2020-05-14] MEDS: SOLU-Medrol 40 MG VIAL IVP SCH ×3 (05:07→21:06)
[2020-05-14 05:32] LABS: ABG BASE EXCESS -1.9 mmol/L (-2.0-2.0); ABG HCO3 22.2 mmol/L (22-26)
[2020-05-14 05:37] LABS: BASOPHILS % (AUTO) 0.2 % (0.2-1.0); HEMATOCRIT 40.1 % (42.0-54.0); LYMPHOCYTES # (AUTO) 1.1 X10^3/uL (1.3-2.9); LYMPHOCYTES % (AUTO) 12.7 % (21.0-51.0); MEAN CORPUSCULAR HEMOGLOBIN 31.5 pg (27.0-34.0); MEAN CORPUSCULAR HGB CONC 32.4 g/dL (33.0-35.0); MEAN CORPUSCULAR VOLUME 97.4 fL (80.0-100.0); MEAN PLATELET VOLUME 8.4 fL (7.4-11.0); MONOCYTES # (AUTO) 0.2 x10^3/uL (0.3-0.8); MONOCYTES % (AUTO) 1.8 % (0.0-13.0); NEUTROPHILS # (AUTO) 7.5 x10^3/uL (2.2-4.8); NEUTROPHILS % (AUTO) 85.3 % (42.0-75.0); PLATELET COUNT 158 X10^3/uL (150.0-450.0); RED BLOOD COUNT 4.12 X10^6/uL (4.7-6.0); RED CELL DISTRIBUTION WIDTH 14.2 % (11.6-16.5); WHITE BLOOD COUNT 8.8 X10^3/uL (3.6-10.0)
[2020-05-14 05:58] LABS: ALANINE AMINOTRANSFERASE 37 Units/L (12-78); ALBUMIN 2.9 g/dL (3.4-5.0); ALKALINE PHOSPHATASE 86 Units/L (46-116); ASPARTATE AMINO TRANSFERASE 39 Units/L (15-37); BLOOD UREA NITROGEN 21 mg/dL (7-18); CALCIUM 8.6 mg/dL (8.5-10.1); CARBON DIOXIDE 22.5 mmol/L (21-32); CHLORIDE 101 mmol/L (98-107); COR CA(FOR HYPOALB) 9.5 mg/dL (8.5-10.1); COR NA(FOR HYPERGLY) 136 mmol/L (136-145); CREATININE 1.33 mg/dL (0.70-1.30); SODIUM 135 mmol/L (136-145); TOTAL PROTEIN 6.4 g/dL (6.4-8.2); eGFR NON BLACK RACES 56 (>60)
--- NOTE | 2020-05-14 07:40 | RAD ---
[id number], RESPIRATORY DISTRESSSTUDYCHEST, 1 [id number]/13/2020FINDINGSThe trachea is midline. The cardiac silhouette is stable. Similar emphysematous changes and pleural calcifications. Similar elevation of the right hemidiaphragm. No definite acute airspace opacities. The bony thorax is unchanged. ACDF hardware.IMPRESSIONNo acute cardiopulmonary disease.Electronically signed by: ABENA RAO (May 14, 2020 07:38:48)
[2020-05-14] MEDS: LOVENOX INJ 30 MG SYR SC SCH ×2 (08:16→20:55)
[2020-05-14] MEDS: CIPRO IV 400 MG PREMIX* 400 MG/200 ML IV.SOLN. IV SCH ×2 (08:17→20:55)
[2020-05-14] MEDS: PULMICORT NEB TX 0.5 MG NEB SCH ×2 (09:19→21:35)
[2020-05-14] MEDS ORDERED: ACTEMRA 400 MG in NS 100 ML IV 80 ML IV SCH (10:00)
--- NOTE | 2020-05-14 11:48 | DR.H&P ---
H&P - History & Physical for Day of: H&P Date: 05/13/20 - Chief Complaint Chief Complaint: COUGH, SOB, FEVER, NAUSEA, WEAKNESS - History of Present Illness History of Present Illness: IS A 74 YEAR OLD PATIENT OF OURS WHO PRESENTED TO THE HOSPITAL A DIRECT ADMISSION DUE TO COMPLAINTS OF COUGH, SHORTNESS OF BREATH, FEVER, NAUSEA, AND SEVERE WEAKNESS. PATIENT REPORTS THAT SYMPTOMS STARTED ABOUT A WEEK AND A HALF AGO. HE REPORTS TESTING POSITIVE FOR COVID-19 LAST WEEK. AT THAT TIME, HE WAS STARTED ON AZITHROMYCIN 500MG IV DAILY, ALBUTEROL INHALER, AND WAS GIVEN PROMETHAZINE FOR NAUSEA. HE REPORTS WORSENING OF SYMPTOMS DESPITE COMPLIANCE WITH HIS MEDICATIONS. HE REPORTS THAT HIS OXYGEN SATURATIONS AT HOME HAVE BEE 88-90% ON ROOM AIR. HIS PMH INCLUDES: CAD, COPD, GERD, COLITIS, CHRONIC UTIs, BPH, KIDNEY STONES, ARTHRITIS, DEPRESSION, BIPOLAR DISORDER, NM, JOINT REPLACEMENT, HERNIA REPAIR, AND NECK FUSION. EXAMINATION OF LUNG NOWAK REVEALED SCATTERED WHEEZING. ABDOMEN IS ROUND, SOFT, AND NON-TENDER WITH NORMAL BOWEL SOUNDS NOTED IN ALL QUADRANTS. HIS VITALS ON ADMISSION WERE 100.0-88-18-90%-122/69. LABS WERE OBTAINED. ABNORMAL LAB VALUES INCLUDE THE FOLLOWING: WBC 10.8, RBC 4.28, HCT 40.9, SODIUM 135, BUN 21, CREATININE 1.57, GLUCOSE 129, CRP 129.80, ALBUMIN 3.0. AN EKG WAS OBTAINED AND REVEALED: SINUS RHYTHM WITH HR 86. A CHEST XRAY WAS OBTAINED AND REVEALED: Moderate elevation of the right hemidiaphragm, unchanged. Heart size probably within normal limits. No definite change in hilar/mediastinal contours. Probable calcified pleural plaques bilaterally. No new consolidation or pleural effusion. No acute pulmona ry edema. Surgical fusion involving the C-spine. HE WAS STARTED ON NS AT 80 ML/HR, REMDESIVIR 200MG IV X 1, THEN 100MG IV DAILY, LOVENOX 30MG SC BID, SOLU- MEDROL 80MG IV Q8H, CIPRO 400MG IV Q12H, DUONEBS Q4H, AND PULMICORT NEBS BID. WE WILL ADMINISTER ACTEMRA 400MG IV X 1 AND ORDER A UNIT OF CONVALESCENT PLASMA TO BE ADMINISTERED WHEN IT IS AVAILABLE. OTHERWISE, WE PLAN TO FOLLOW UP WITH AM LABS AND CONTINUE TO MONITOR. TIME SPENT ON CLINICAL ASSESSMENT, REVIEWING LABS AND IMAGING, DECISION MAKING, AND DOCUMENTATION GREATER THAN 75 MINUTES. - Past Medical History Past Medical History: Hypertension, Arthritis, Kidney Stones Additional Medical History: BIPOLAR DISORDER (NO MEDICATION IN 2 YEARS), BPH, HX GASTROINTESTINAL ULCER, COLITIS, HX FX (R) FOOT, PARKINSON'S, CATARACTS, UTI'S, BACK PAIN - Past Surgical History Surgical History: Abdominal Surgery, Joint Replacement, Ortho Surgery, Other Additional Surgical History: HERNIA REPAIR, ACDF SURGERY -JUN 2016 - Family History Family Medical History: NM, Coronary Artery Disease, Hypertension - Social History Does patient currently use any type of tobacco product: No Have you used tobacco products in the last 12 months: No Type of Tobacco Use: None Alcohol Use: None - Medications Home Medications: No Known Drug Allergies Allergy (Verified 03/19/17 15:35) - Review of Systems Constitutional: Fever, Chills, Weakness Eyes: No Symptoms Reported ENT: No Symptoms Reported Respiratory: See HPI, Cough, Shortness of Breath, SOB with Excertion Cardiovascular: No Symptoms Reported Gastrointestinal: Nausea Genitourinary: No Symptoms Reported Musculoskeletal: No Symptoms Reported Skin: No Symptoms Reported Neurological: Weakness - Physical Exam Vital Signs: Temperature 98 F Pulse Rate [Right Brachial] 76 Pulse Rate 74 Respiratory Rate 20 Blood Pressure [Left Arm] 121/63 Blood Pressure 157/78 O2 Sat by Pulse Oximetry 94 Oriented: Normal Eyes: Normal Ear: Normal Nose: Normal Throat: Normal Respiratory: Diminished Throughout Cardiovascular: Normal : Normal Auscultation: Bowel Sounds: Normal Palpation: Normal Tenderness: Normal Skin: Normal Musculoskeletal: Normal Psychiatric: Normal Mood Description: Calm Affect: Normal Speech Pattern: Clear - Assessment/Plan (1) Bronchitis due to 2019 novel coronavirus Status: Acute Plan: ADMIT, NS AT 80 ML/HR, REMDESIVIR 200MG IV X 1, THEN 100MG IV DAILY, LOVENOX 30MG SC BID, SOLU-MEDROL 80MG IV Q8H, CIPRO 400MG IV Q12H, DUONEBS Q4H, AND PULMICORT NEBS BID. ONE UNIT OF PLASMA WHEN AVAILABLE (2) Hypoxia Status: Acute - Allergies Allergies/Adverse Reactions: Allergies Allergy/AdvReac Type Severity Reaction Status Date / Time No Known Drug Allergies Allergy Verified 03/19/17 15:35
[2020-05-14 15:18] VITALS: BMI 18.1
[2020-05-14] MEDS: REMDESIVIR 100 MG in NS 250 ML IV 250 ML IV SCH (21:00)
[2020-05-14] MEDS: NORCO 5/325 MG TAB PO PRN (21:06)
[2020-05-15] MEDS: DUONEB 0.5 MG/3 MG (3 mL) NEB SCH ×6 (01:06→20:10)
--- NOTE | 2020-05-15 02:18 | CT ---
STUDY: CTA CHEST WITH IV CONTRASTCOMPARISON: NoneTECHNIQUE: axial images were acquired of the chest with IV contrast for a CT angiogram. Coronal and sagittal images were provided. All images were reviewed in a variety of windows and levels. 3D 8 mm thick MIPS images were provided.RADIATION REDUCTION TECHNIQUE: Automated exposure control, Adjustment of the mA and/or kV according to patient size, or iterative reconstruction techniques were used. 8 mm thick axial MIPS images were provided.HISTORY: SOBFINDINGS:CHEST:THYROID GLANDS: The thyroid gland is unremarkable.HEART AND VESSELS: The heart size is within normal limits.There is no evidence of pericardial effusion. Thoracic aorta is normal size without evidence of an aneurysm or dissection.Main pulmonary artery size is within normal limits. There are no filling defect seen within the visualized pulmonary arteries to suggest a pulmonary embolism.LYMPH NODES: There is no evidence of axillary, mediastinal, or hilar lymphadenopathy.AIRWAY: The trachea and mainstem bronchi are patent.No intraluminal lesions are seen.LUNGS: There are scattered areas of ground-glass opacities predominantly involving the bilateral lower lung zones. This appears slightly worse on the right compared to the left. There is no pleural effusion. No evidence of pneumothorax. Emphysematous changes are noted.ESOPHAGUS: There is a moderate-sized hiatal hernia.BONES: The visualized bones demonstrate degenerative changes. There are no concerning lytic or blastic lesions identified. There is partial visualization of cervical spine fusion hardware.UPPER ABDOMINAL STRUCTURES: The visualized upper abdominal structures demonstrates partial visualization of an IVC filter. There are scattered areas of coarse calcification seen along the right hemidiaphragm.IMPRESSSION:1. No evidence of pulmonary embolism2. Scattered regions of ground-glass opacities is seen in the pleura nominally involving the bilateral lower lung zones. The chronicity of this finding is not clear on this examination as there are no prior studies available for comparison. This may represent acute or chronic airspace disease. Please clinically correlate with patient's symptoms.3. IVC filter is notedElectronically signed by: Kang Gao (May 15, 2020 02:16:55)
[2020-05-15] MEDS: NORCO 5/325 MG TAB PO PRN (03:36)
[2020-05-15 04:59] LABS: ABG BASE EXCESS -0.2 mmol/L (-2.0-2.0)
[2020-05-15 05:39] LABS: BASOPHILS % (AUTO) 0.1 % (0.2-1.0); HEMATOCRIT 36.1 % (42.0-54.0); HEMOGLOBIN 12.1 g/dL (13.5-18.0); LYMPHOCYTES # (AUTO) 1.1 X10^3/uL (1.3-2.9); LYMPHOCYTES % (AUTO) 10.2 % (21.0-51.0); MEAN CORPUSCULAR HEMOGLOBIN 32.1 pg (27.0-34.0); MEAN CORPUSCULAR HGB CONC 33.6 g/dL (33.0-35.0); MEAN CORPUSCULAR VOLUME 95.4 fL (80.0-100.0); MEAN PLATELET VOLUME 8.2 fL (7.4-11.0); MONOCYTES # (AUTO) 0.4 x10^3/uL (0.3-0.8); NEUTROPHILS # (AUTO) 9.4 x10^3/uL (2.2-4.8); NEUTROPHILS % (AUTO) 85.7 % (42.0-75.0); PLATELET COUNT 191 X10^3/uL (150.0-450.0); RED BLOOD COUNT 3.78 X10^6/uL (4.7-6.0); RED CELL DISTRIBUTION WIDTH 14.4 % (11.6-16.5); WHITE BLOOD COUNT 10.9 X10^3/uL (3.6-10.0)
[2020-05-15 06:01] LABS: ALANINE AMINOTRANSFERASE 35 Units/L (12-78); ALBUMIN 2.7 g/dL (3.4-5.0); ALKALINE PHOSPHATASE 72 Units/L (46-116); ASPARTATE AMINO TRANSFERASE 37 Units/L (15-37); BLOOD UREA NITROGEN 23 mg/dL (7-18); CALCIUM 8.8 mg/dL (8.5-10.1); CARBON DIOXIDE 24.6 mmol/L (21-32); CHLORIDE 106 mmol/L (98-107); COR CA(FOR HYPOALB) 9.8 mg/dL (8.5-10.1); COR NA(FOR HYPERGLY) 140 mmol/L (136-145); CREATININE 1.21 mg/dL (0.70-1.30); SODIUM 139 mmol/L (136-145); TOTAL PROTEIN 5.9 g/dL (6.4-8.2); eGFR NON BLACK RACES > 60 (>60)
[2020-05-15] MEDS: SOLU-Medrol 40 MG VIAL IVP SCH ×3 (06:13→21:52)
--- NOTE | 2020-05-15 08:01 | RAD ---
HISTORYSOB, [id number], 1 [id number] trachea is midline. The cardiac silhouette is stable. Chronic interstitial markings and emphysematous changes. Similar bibasilar airspace opacities. No definite acute airspace disease. The bony thorax is stable. ACDF hardware partially visualized.IMPRESSIONSimilar bibasilar airspace opacities of indeterminate acuity. Continued follow-up recommended.Electronically signed by: ABENA RAO (May 15, 2020 07:59:58)
[2020-05-15] MEDS ORDERED: ULTRAM PO PRN (08:09)
[2020-05-15] MEDS: CIPRO IV 400 MG PREMIX* 400 MG/200 ML IV.SOLN. IV SCH ×2 (08:33→21:08)
[2020-05-15] MEDS: LOVENOX INJ 30 MG SYR SC SCH ×2 (09:03→20:25)
[2020-05-15] MEDS: GEODON PO SCH ×2 (09:03→21:51)
[2020-05-15] MEDS: FLOMAX PO SCH (09:03)
[2020-05-15] MEDS: COLACE CAP 100 MG PO SCH ×2 (09:03→21:51)
[2020-05-15] MEDS: PHENERGAN TAB 25 MG PO SCH ×4 (09:03→21:51)
[2020-05-15] MEDS: PERCOCET TAB 5/325 MG PO PRN ×2 (09:10→21:49)
[2020-05-15] MEDS: PULMICORT NEB TX 0.5 MG NEB SCH ×2 (09:20→20:10)
[2020-05-15] MEDS: PROTONIX INJ 40 MG VIAL IVP SCH ×2 (11:35→21:30)
[2020-05-15] MEDS: PEPCID 20 MG IV PREMIX* 20 MG/50 ML BAG IV SCH ×2 (11:35→21:08)
[2020-05-15] MEDS ORDERED: NS 100 ML IV 100 ML IV ONE (16:47)
[2020-05-15] MEDS ORDERED: TYLENOL 325 MG TAB PO ONE (17:21)
[2020-05-15] MEDS ORDERED: BENADRYL INJ 50 MG VIAL IVP ONE (17:22)
[2020-05-15] MEDS: NS 1000 ML 1,000 ML IV SCH (18:28)
[2020-05-15] MEDS: XANAX PO PRN (21:09)
[2020-05-15] MEDS: KLONOPIN TAB 0.5 MG PO SCH (21:09)
[2020-05-15 21:24] LABS: BILIRUBIN,URINE NEGATIVE (NEGATIVE); BLOOD/HEMOGLOBIN,URINE 3+ (NEGATIVE); GLUCOSE, URINE NEGATIVE (NEGATIVE); KETONES,URINE NEGATIVE (NEGATIVE); LEUKOCYTE ESTERASE ,URINE NEGATIVE (NEGATIVE); NITRITES,URINE NEGATIVE (NEGATIVE); PROTEIN,URINE 1+ (NEGATIVE); UROBILINOGEN,URINE NORMAL (NORMAL)
[2020-05-15 21:31] LABS: APPEARANCE,URINE CLEAR (CLEAR); COLOR,URINE STRAW (YELLOW)
[2020-05-15 21:32] LABS: BACTERIA,URINE TRACE /HPF (NEGATIVE); RBC,URINE 0-2 /HPF (0-3); SQUAMOUS EPITHELIAL CELL,UR FEW /HPF (NEGATIVE)
--- NOTE | 2020-05-15 21:54 | PCM.PROG ---
Progress Note - Progress Note for Day of Date of Exam: 05/14/20 - Subjective Subjective: IS BEING TREATED FOR BRONCHITIS DUE TO COVID-19 AND HYPOXIA. TODAY, HE IS ALERT AND ORIENTED, LYING IN BED ON MORNING ROUNDS. HE CONTINUES WITH COMPLAINTS OF COUGH, SHORTNESS OF BREATH, AND GENERALIZED WEAKNESS. HE IS CURRENTLY UTILIZING OXYGEN VIA NASAL CANNULA AT 2 LITERS/MINUTE. HIS OXYGEN SATURATIONS HAVE BEEN 90-94% ON NASAL CANNULA. HE DENIES SIGNIFICANT IMPROVEMENT IN SYMPTOMS SINCE ADMISSION. HE REPORTS LOWER BACK PAIN TODAY. ON EXAMINATION, HEART IS REGULAR IN RATE AND RHYTHM. BILATERAL LUNGS ARE NOTED WITH SCATTERED WHEEZING THROUGHOUT. ABDOMEN IS ROUND, SOFT, AND NON-TENDER WITH NORMAL BOWEL SOUNDS NOTED IN ALL QUADRANTS. HIS VITALS THIS MORNING ARE: 98.0-76-20-90%NC- 121/63. LABS WERE OBTAINED. ABNORMAL LAB VALUES INCLUDE THE FOLLOWING: RBC 4.12, HGB 13.0, HCT 40.1, SODIUM 135, BUN 21, CREATININE 1.33, GLUCOSE 141, AST 39, CRP 166.70, ALBUMIN 2.9. AN ABG WAS REPEATED TO DAY AND REVEALED: PH 7.410, PC02 35, P02 68, HC03 22.2, 02 SAT 93, FI02 28.0. BLOOD CULTURES ARE PENDING. CHEST XRAY REVEALED: No acute cardiopulmonary disease. HE IS CURRENLY RECEIVING NS AT 80 ML/HR, REMDESIVIR 200MG IV X 1, THEN 100MG IV DAILY, LOVENOX 30MG SC BID, SOLU-MEDROL 80MG IV Q8H, CIPRO 400MG IV Q12H, DUONEBS Q4H, AND PULMICORT NEBS BID. WE WILL ORDER A UNIT OF CONVALESCENT PLASMA TO BE ADMINISTERED WHEN IT IS AVAILABLE. TODAY, WE WILL START DILAUDID 1-2MG IV Q6H PRN AND TORADOL 30MG IV Q8H PRN. OTHERWISE, WE PLAN TO FOLLOW UP WITH AM LABS AND CONTINUE TO MONITOR. TIME SPENT ON CLINICAL ASSESSMENT, REVIEWING LABS AND IMAGING, DECISION MAKING, AND DOCUMENTATION GREATER THAN 45 MINUTES. - Past Medical Family Social History Past Med/Fam/Surg Hx: No changes since H&P Allergies: Allergies No Known Drug Allergies Allergy (Verified 03/19/17 15:35) - Review of Systems ROS: No change since H&P - Vital Signs and I&O's Vital Signs: Temperature 98.1 F Pulse Rate [Right Brachial] 86 Pulse Rate 85 Respiratory Rate 20 Blood Pressure [Left Arm] 119/65 Blood Pressure 157/78 O2 Sat by Pulse Oximetry 92 Intake and Output: Intake & Output 05/13/20 05/14/20 05/15/20 05/16/20 11:59 11:59 11:59 11:59 Intake Total 1288 / 1288 3388 / 3388 1136 / 1136 Output Total 850 / 850 Balance 1288 / 1288 3388 / 3388 286 / 286 - Physical Exam Oriented: Normal Eyes: Normal Ear: Normal Nose: Normal Throat: Normal Respiratory: Generalized, Diminished, Wheezes Cardiovascular: Normal : Normal Auscultation: Bowel Sounds: Normal Palpation: Normal Tenderness: Normal Skin: Normal Musculoskeletal: Normal Psychiatric: Normal Mood Description: Calm Affect: Normal Speech Pattern: Clear, Appropriate - Laboratory and Diagnostics Result Diagrams: 05/15/20 04:55 05/15/20 04:55 Labs: 05/13/20 18:26 Blood Blood Culture - Preliminary 05/13/20 18:20 Blood Blood Culture - Preliminary Laboratory WBC 10.9 X10^3/uL (3.6-10.0) H 05/15/20 04:55 RBC 3.78 X10^6/uL (4.7-6.0) L 05/15/20 04:55 Hgb 12.1 g/dL (13.5-18.0) L 05/15/20 04:55 Hct 36.1 % (42.0-54.0) L 05/15/20 04:55 MCV 95.4 fL (80.0-100.0) 05/15/20 04:55 MCH 32.1 pg (27.0-34.0) 05/15/20 04:55 MCHC 33.6 g/dL (33.0-35.0) 05/15/20 04:55 RDW 14.4 % (11.6-16.5) 05/15/20 04:55 Plt Count 191 X10^3/uL (150.0-450.0) 05/15/20 04:55 MPV 8.2 fL (7.4-11.0) 05/15/20 04:55 Neut % (Auto) 85.7 % (42.0-75.0) H 05/15/20 04:55 Lymph % (Auto) 10.2 % (21.0-51.0) L 05/15/20 04:55 [place] % (Auto) 4.0 % (0.0-13.0) 05/15/20 04:55 Eos % (Auto) 0.0 % (0.9-2.9) L 05/15/20 04:55 Baso % (Auto) 0.1 % (0.2-1.0) L 05/15/20 04:55 Neut # (Auto) 9.4 x10^3/uL (2.2-4.8) H 05/15/20 04:55 Lymph # (Auto) 1.1 X10^3/uL (1.3-2.9) L 05/15/20 04:55 [place] # (Auto) 0.4 x10^3/uL (0.3-0.8) 05/15/20 04:55 Eos # (Auto) 0.0 x10^3/uL (0.0-0.2) 05/15/20 04:55 Baso # (Auto) 0.0 X10^3/uL (0.0-0.1) 05/15/20 04:55 Absolute Nucleated RBC 0.1 /100WBC 05/15/20 04:55 ESR 13 MM/HOUR (0-15) 05/13/20 18:20 Sample Site Rbra 05/15/20 04:58 ABG pH 7.420 (7.35-7.45) 05/15/20 04:58 ABG pCO2 37.0 mmHg (35.0-45.0) 05/15/20 04:58 ABG pO2 73.0 mmHg (80.0-100.0) L 05/15/20 04:58 ABG HCO3 24.0 mmol/L (22-26) 05/15/20 04:58 ABG O2 Saturation 95.0 % (90-100) 05/15/20 04:58 ABG Base Excess -0.2 mmol/L (-2.0-2.0) 05/15/20 04:58 Juanito Test Na 05/15/20 04:58 A-a Gradient 80.0 mmHg 05/15/20 04:58 FiO2 28.0 05/15/20 04:58 Blood Gas Comments Aakash abg well-mtf 05/15/20 04:58 Sodium 139 mmol/L (136-145) 05/15/20 04:55 Corrected Sodium 140 mmol/L (136-145) 05/15/20 04:55 Potassium 4.2 mmol/L (3.5-5.1) 05/15/20 04:55 Chloride 106 mmol/L (98-107) 05/15/20 04:55 Carbon Dioxide 24.6 mmol/L (21-32) 05/15/20 04:55 BUN 23 mg/dL (7-18) H 05/15/20 04:55 Creatinine 1.21 mg/dL (0.70-1.30) 05/15/20 04:55 Est GFR (MDRD) Af Amer > 60 (>60) 05/15/20 04:55 Est GFR (MDRD) Non-Af > 60 (>60) 05/15/20 04:55 Glucose 130 mg/dL (65-99) H 05/15/20 04:55 Calcium 8.8 mg/dL (8.5-10.1) 05/15/20 04:55 Corrected Calcium 9.8 mg/dL (8.5-10.1) 05/15/20 04:55 Ferritin 178 ng/mL (26-388) 05/15/20 04:55 Total Bilirubin 0.10 mg/dL (0.2-1.0) L 05/15/20 04:55 AST 37 Units/L (15-37) 05/15/20 04:55 ALT 35 Units/L (12-78) 05/15/20 04:55 Alkaline Phosphatase 72 Units/L (46-116) 05/15/20 04:55 C-Reactive Protein 78.10 mg/L (0-3.0) H 05/15/20 04:55 B-Natriuretic Peptide 26.4 pg/mL (0-79) 05/15/20 04:55 Total Protein 5.9 g/dL (6.4-8.2) L 05/15/20 04:55 Albumin 2.7 g/dL (3.4-5.0) L 05/15/20 04:55 Globulin 3.2 g/dL (2.5-4.5) 05/15/20 04:55 Albumin/Globulin Ratio 0.8 Ratio (1.1-2.1) L 05/15/20 04:55 Specimen Type Catherized urine 05/15/20 21:00 Urine Color Straw (YELLOW) 05/15/20 21:00 Urine Appearance Clear (CLEAR) 05/15/20 21:00 Urine pH 6.0 (5.0 - 8.0) 05/15/20 21:00 Ur Specific [place] 1.010 (1.000-1.030) 05/15/20 21:00 Urine Protein 1+ (NEGATIVE) 05/15/20 21:00 Urine Glucose (UA) Negative (NEGATIVE) 05/15/20 21:00 Urine Ketones Negative (NEGATIVE) 05/15/20 21:00 Urine Occult Blood 3+ (NEGATIVE) 05/15/20 21:00 Urine Nitrite Negative (NEGATIVE) 05/15/20 21:00 Urine Bilirubin Negative (NEGATIVE) 05/15/20 21:00 Urine Urobilinogen Normal (NORMAL) 05/15/20 21:00 Ur Leukocyte Esterase Negative (NEGATIVE) 05/15/20 21:00 Urine RBC 0-2 /HPF (0-3) 05/15/20 21:00 Urine WBC None seen /HPF (0-5) 05/15/20 21:00 Ur Squamous Epith Cells Few /HPF (NEGATIVE) 05/15/20 21:00 Amorphous Sediment 2+ /HPF (NEGATIVE) 05/13/20 23:00 Urine Bacteria Trace /HPF (NEGATIVE) 05/15/20 21:00 Urine Mucus Many /HPF (NEGATIVE) 05/13/20 23:00 Ur Culture Indicated? No/not indicated 05/15/20 21:00 Influenza Type A (PCR) Negative (NEGATIVE) 05/13/20 23:00 Influenza Type B (PCR) Negative (NEGATIVE) 05/13/20 23:00 SARS CoV-2 RNA Rapid JERRELL Positive (NEGATIVE) A 05/13/20 17:10 Blood Type A POSITIVE 05/14/20 09:55 - Plan (1) Bronchitis due to 2019 novel coronavirus Status: Acute Plan: NS AT 80 ML/HR, REMDESIVIR 100MG IV DAILY, LOVENOX 30MG SC BID, SOLU- MEDROL 80MG IV Q8H, CIPRO 400MG IV Q12H, DUONEBS Q4H, AND PULMICORT NEBS BID. ONE UNIT OF PLASMA WHEN AVAILABLE (2) Hypoxia Status: Acute
[2020-05-15] MEDS: REMDESIVIR 100 MG in NS 250 ML IV 250 ML IV SCH (22:00)
--- NOTE | 2020-05-15 22:07 | PCM.PROG ---
Progress Note - Progress Note for Day of Date of Exam: 05/15/20 - Subjective Subjective: IS BEING TREATED FOR BRONCHITIS DUE TO COVID-19 AND HYPOXIA. TODAY, HE IS ALERT AND ORIENTED, LYING IN BED ON MORNING ROUNDS. HE CONTINUES WITH COMPLAINTS OF COUGH, SHORTNESS OF BREATH, AND GENERALIZED WEAKNESS. HE IS CURRENTLY UTILIZING OXYGEN VIA NASAL CANNULA AT 2 LITERS/MINUTE. HIS OXYGEN SATURATIONS HAVE BEEN 90-94% ON NASAL CANNULA. HE DENIES SIGNIFICANT IMPROVEMENT IN SYMPTOMS SINCE ADMISSION. HE REPORTS LOWER BACK PAIN TODAY. ON EXAMINATION, HEART IS REGULAR IN RATE AND RHYTHM. BILATERAL LUNGS ARE NOTED WITH SCATTERED WHEEZING THROUGHOUT. ABDOMEN IS ROUND, SOFT, AND NON-TENDER WITH NORMAL BOWEL SOUNDS NOTED IN ALL QUADRANTS. HIS VITALS THIS MORNING ARE: 97.6-73%NC-124/74. LABS WERE OBTAINED. ABNORMAL LAB VALUES INCLUDE THE FOLLOWING: WBC 10.9, RBC 3.78, HGB 12.1, HCT 36.1, BUN 23, GLUCOSE 130, TOTAL BILI 0.10, CRP 78.10, TOTAL PROTEIN 5.9, ALBUMIN 2.7. AN ABG WAS REPEATED TO DAY AND REVEALED: PH 7.420, PC02 37, P0273, HC03 24.0, 02 SAT 95, FI02 28.0. BLOOD CULTURES ARE PENDING. CHEST XRAY REVEALED: Similar bibasilar airspace opacities of indeterminate acuity. Continued follow-up recommended. A CHEST CTA WAS OBTAINED AND REVEALED: 1. No evidence of pulmonary embolism 2. Scattered regions of ground-glass opacities is seen in the pleura nominally involving the bilateral lower lung zones. The chronicity of this finding is not clear on this examination as there are no prior studies available for comparison. This may represent acute or chronic airspace disease. Please clinically correlate with patient's symptoms. 3. IVC filter is noted. HE IS CURRENLY RECEIVING NS AT 80 ML/HR, REMDESIVIR 200MG IV X 1, THEN 100MG IV DAILY, LOVENOX 30MG SC BID, SOLU-MEDROL 80MG IV Q8H, CIPRO 400MG IV Q12H, DUONEBS Q4H, AND PULMICORT NEBS BID. WE WILL ADMINISTER A UNIT OF CONVALESCENT PLASMA TO BE ADMINISTERED WHEN IT IS AVAILABLE. OTHERWISE, WE PLAN TO FOLLOW UP WITH AM LABS AND CONTINUE TO MONITOR. TIME SPENT ON CLINICAL ASSESSMENT, REVIEWING LABS AND IMAGING, DECISION MAKING, AND DOCUMENTATION GREATER THAN 45 MINUTES. - Past Medical Family Social History Past Med/Fam/Surg Hx: No changes since H&P Allergies: Allergies No Known Drug Allergies Allergy (Verified 03/19/17 15:35) - Review of Systems ROS: No change since H&P - Vital Signs and I&O's Vital Signs: Temperature 98.1 F Pulse Rate [Right Brachial] 86 Pulse Rate 85 Respiratory Rate 20 Blood Pressure [Left Arm] 119/65 Blood Pressure 157/78 O2 Sat by Pulse Oximetry 92 Intake and Output: Intake & Output 05/13/20 05/14/20 05/15/20 05/16/20 11:59 11:59 11:59 11:59 Intake Total 1288 / 1288 3388 / 3388 1136 / 1136 Output Total 850 / 850 Balance 1288 / 1288 3388 / 3388 286 / 286 - Physical Exam Oriented: Normal Eyes: Normal Ear: Normal Nose: Normal Throat: Normal Respiratory: Generalized, Diminished, Wheezes Cardiovascular: Normal : Normal Auscultation: Bowel Sounds: Normal Tenderness: Normal Skin: Normal Musculoskeletal: Normal Psychiatric: Normal Mood Description: Calm Affect: Normal Speech Pattern: Clear, Appropriate - Laboratory and Diagnostics Result Diagrams: 05/15/20 04:55 05/15/20 04:55 Labs: 05/13/20 18:26 Blood Blood Culture - Preliminary 05/13/20 18:20 Blood Blood Culture - Preliminary Laboratory WBC 10.9 X10^3/uL (3.6-10.0) H 05/15/20 04:55 RBC 3.78 X10^6/uL (4.7-6.0) L 05/15/20 04:55 Hgb 12.1 g/dL (13.5-18.0) L 05/15/20 04:55 Hct 36.1 % (42.0-54.0) L 05/15/20 04:55 MCV 95.4 fL (80.0-100.0) 05/15/20 04:55 MCH 32.1 pg (27.0-34.0) 05/15/20 04:55 MCHC 33.6 g/dL (33.0-35.0) 05/15/20 04:55 RDW 14.4 % (11.6-16.5) 05/15/20 04:55 Plt Count 191 X10^3/uL (150.0-450.0) 05/15/20 04:55 MPV 8.2 fL (7.4-11.0) 05/15/20 04:55 Neut % (Auto) 85.7 % (42.0-75.0) H 05/15/20 04:55 Lymph % (Auto) 10.2 % (21.0-51.0) L 05/15/20 04:55 [place] % (Auto) 4.0 % (0.0-13.0) 05/15/20 04:55 Eos % (Auto) 0.0 % (0.9-2.9) L 05/15/20 04:55 Baso % (Auto) 0.1 % (0.2-1.0) L 05/15/20 04:55 Neut # (Auto) 9.4 x10^3/uL (2.2-4.8) H 05/15/20 04:55 Lymph # (Auto) 1.1 X10^3/uL (1.3-2.9) L 05/15/20 04:55 [place] # (Auto) 0.4 x10^3/uL (0.3-0.8) 05/15/20 04:55 Eos # (Auto) 0.0 x10^3/uL (0.0-0.2) 05/15/20 04:55 Baso # (Auto) 0.0 X10^3/uL (0.0-0.1) 05/15/20 04:55 Absolute Nucleated RBC 0.1 /100WBC 05/15/20 04:55 ESR 13 MM/HOUR (0-15) 05/13/20 18:20 Sample Site Rbra 05/15/20 04:58 ABG pH 7.420 (7.35-7.45) 05/15/20 04:58 ABG pCO2 37.0 mmHg (35.0-45.0) 05/15/20 04:58 ABG pO2 73.0 mmHg (80.0-100.0) L 05/15/20 04:58 ABG HCO3 24.0 mmol/L (22-26) 05/15/20 04:58 ABG O2 Saturation 95.0 % (90-100) 05/15/20 04:58 ABG Base Excess -0.2 mmol/L (-2.0-2.0) 05/15/20 04:58 Juanito Test Na 05/15/20 04:58 A-a Gradient 80.0 mmHg 05/15/20 04:58 FiO2 28.0 05/15/20 04:58 Blood Gas Comments Aakash abg well-mtf 05/15/20 04:58 Sodium 139 mmol/L (136-145) 05/15/20 04:55 Corrected Sodium 140 mmol/L (136-145) 05/15/20 04:55 Potassium 4.2 mmol/L (3.5-5.1) 05/15/20 04:55 Chloride 106 mmol/L (98-107) 05/15/20 04:55 Carbon Dioxide 24.6 mmol/L (21-32) 05/15/20 04:55 BUN 23 mg/dL (7-18) H 05/15/20 04:55 Creatinine 1.21 mg/dL (0.70-1.30) 05/15/20 04:55 Est GFR (MDRD) Af Amer > 60 (>60) 05/15/20 04:55 Est GFR (MDRD) Non-Af > 60 (>60) 05/15/20 04:55 Glucose 130 mg/dL (65-99) H 05/15/20 04:55 Calcium 8.8 mg/dL (8.5-10.1) 05/15/20 04:55 Corrected Calcium 9.8 mg/dL (8.5-10.1) 05/15/20 04:55 Ferritin 178 ng/mL (26-388) 05/15/20 04:55 Total Bilirubin 0.10 mg/dL (0.2-1.0) L 05/15/20 04:55 AST 37 Units/L (15-37) 05/15/20 04:55 ALT 35 Units/L (12-78) 05/15/20 04:55 Alkaline Phosphatase 72 Units/L (46-116) 05/15/20 04:55 C-Reactive Protein 78.10 mg/L (0-3.0) H 05/15/20 04:55 B-Natriuretic Peptide 26.4 pg/mL (0-79) 05/15/20 04:55 Total Protein 5.9 g/dL (6.4-8.2) L 05/15/20 04:55 Albumin 2.7 g/dL (3.4-5.0) L 05/15/20 04:55 Globulin 3.2 g/dL (2.5-4.5) 05/15/20 04:55 Albumin/Globulin Ratio 0.8 Ratio (1.1-2.1) L 05/15/20 04:55 Specimen Type Catherized urine 05/15/20 21:00 Urine Color Straw (YELLOW) 05/15/20 21:00 Urine Appearance Clear (CLEAR) 05/15/20 21:00 Urine pH 6.0 (5.0 - 8.0) 05/15/20 21:00 Ur Specific [place] 1.010 (1.000-1.030) 05/15/20 21:00 Urine Protein 1+ (NEGATIVE) 05/15/20 21:00 Urine Glucose (UA) Negative (NEGATIVE) 05/15/20 21:00 Urine Ketones Negative (NEGATIVE) 05/15/20 21:00 Urine Occult Blood 3+ (NEGATIVE) 05/15/20 21:00 Urine Nitrite Negative (NEGATIVE) 05/15/20 21:00 Urine Bilirubin Negative (NEGATIVE) 05/15/20 21:00 Urine Urobilinogen Normal (NORMAL) 05/15/20 21:00 Ur Leukocyte Esterase Negative (NEGATIVE) 05/15/20 21:00 Urine RBC 0-2 /HPF (0-3) 05/15/20 21:00 Urine WBC None seen /HPF (0-5) 05/15/20 21:00 Ur Squamous Epith Cells Few /HPF (NEGATIVE) 05/15/20 21:00 Amorphous Sediment 2+ /HPF (NEGATIVE) 05/13/20 23:00 Urine Bacteria Trace /HPF (NEGATIVE) 05/15/20 21:00 Urine Mucus Many /HPF (NEGATIVE) 05/13/20 23:00 Ur Culture Indicated? No/not indicated 05/15/20 21:00 Influenza Type A (PCR) Negative (NEGATIVE) 05/13/20 23:00 Influenza Type B (PCR) Negative (NEGATIVE) 05/13/20 23:00 SARS CoV-2 RNA Rapid JERRELL Positive (NEGATIVE) A 05/13/20 17:10 Blood Type A POSITIVE 05/14/20 09:55 - Plan (1) Bronchitis due to 2019 novel coronavirus Status: Acute Plan: NS AT 80 ML/HR, REMDESIVIR 100MG IV DAILY, LOVENOX 30MG SC BID, SOLU- MEDROL 80MG IV Q8H, CIPRO 400MG IV Q12H, DUONEBS Q4H, AND PULMICORT NEBS BID. ONE UNIT OF PLASMA WHEN AVAILABLE (2) Hypoxia Status: Acute
[2020-05-15] MEDS: DILAUDID INJ IVP PRN (22:30)
[2020-05-16] MEDS: NS 1000 ML 1,000 ML IV SCH ×3 (00:32→11:11)
[2020-05-16] MEDS: DUONEB 0.5 MG/3 MG (3 mL) NEB SCH ×6 (00:40→20:40)
[2020-05-16] MEDS: TORADOL 30 MG VIAL IVP PRN ×3 (01:45→17:09)
[2020-05-16] MEDS: DILAUDID INJ IVP PRN ×2 (05:36→20:00)
[2020-05-16] MEDS: SOLU-Medrol 40 MG VIAL IVP SCH ×3 (05:38→22:36)
[2020-05-16 06:14] LABS: BASOPHILS % (AUTO) 0.1 % (0.2-1.0); HEMATOCRIT 34.4 % (42.0-54.0); HEMOGLOBIN 11.2 g/dL (13.5-18.0); LYMPHOCYTES # (AUTO) 0.8 X10^3/uL (1.3-2.9); LYMPHOCYTES % (AUTO) 6.6 % (21.0-51.0); MEAN CORPUSCULAR HEMOGLOBIN 31.5 pg (27.0-34.0); MEAN CORPUSCULAR HGB CONC 32.7 g/dL (33.0-35.0); MEAN CORPUSCULAR VOLUME 96.6 fL (80.0-100.0); MEAN PLATELET VOLUME 8.2 fL (7.4-11.0); MONOCYTES # (AUTO) 0.7 x10^3/uL (0.3-0.8); MONOCYTES % (AUTO) 5.4 % (0.0-13.0); NEUTROPHILS # (AUTO) 11.3 x10^3/uL (2.2-4.8); NEUTROPHILS % (AUTO) 87.9 % (42.0-75.0); PLATELET COUNT 247 X10^3/uL (150.0-450.0); RED BLOOD COUNT 3.56 X10^6/uL (4.7-6.0); RED CELL DISTRIBUTION WIDTH 14.2 % (11.6-16.5); WHITE BLOOD COUNT 12.9 X10^3/uL (3.6-10.0)
[2020-05-16 06:39] LABS: ALANINE AMINOTRANSFERASE 59 Units/L (12-78); ALBUMIN 2.8 g/dL (3.4-5.0); ALKALINE PHOSPHATASE 59 Units/L (46-116); ASPARTATE AMINO TRANSFERASE 64 Units/L (15-37); BLOOD UREA NITROGEN 23 mg/dL (7-18); CALCIUM 8.6 mg/dL (8.5-10.1); CHLORIDE 110 mmol/L (98-107); COR CA(FOR HYPOALB) 9.6 mg/dL (8.5-10.1); COR NA(FOR HYPERGLY) 144 mmol/L (136-145); CREATININE 1.46 mg/dL (0.70-1.30); SODIUM 143 mmol/L (136-145); TOTAL PROTEIN 5.8 g/dL (6.4-8.2); eGFR NON BLACK RACES 50 (>60)
--- NOTE | 2020-05-16 06:41 | RAD ---
HISTORYSOB, COVID+STUDYCHEST, 1 [id number] view of the chestFINDINGSCardiac and mediastinal contours are within normal limits. Stable patchy bilateral lung opacities. Moderate hiatal hernia. Elevated left hemidiaphragm. No pleural effusion or pneumothoraxIMPRESSIONNo significant change.Electronically signed by: Iam Gonzalez (May 16, 2020 06:39:43)
[2020-05-16 06:46] LABS: CARBON DIOXIDE 21.2 mmol/L (21-32)
[2020-05-16] MEDS: PROTONIX INJ 40 MG VIAL IVP SCH ×2 (09:19→22:00)
[2020-05-16] MEDS: PEPCID 20 MG IV PREMIX* 20 MG/50 ML BAG IV SCH (09:19)
[2020-05-16] MEDS: FLOMAX PO SCH (09:19)
[2020-05-16] MEDS: GEODON PO SCH ×2 (09:19→22:00)
[2020-05-16] MEDS: PHENERGAN TAB 25 MG PO SCH ×4 (09:19→22:00)
[2020-05-16] MEDS: COLACE CAP 100 MG PO SCH ×2 (09:20→22:00)
[2020-05-16] MEDS: CIPRO IV 400 MG PREMIX* 400 MG/200 ML IV.SOLN. IV SCH ×2 (09:20→22:00)
[2020-05-16] MEDS: PULMICORT NEB TX 0.5 MG NEB SCH ×2 (09:35→20:40)
[2020-05-16] MEDS ORDERED: POTASSIUM CHLORIDE LIQ 20 MEQ UDC PO PRN (09:39)
[2020-05-16] MEDS ORDERED: K-RIDER 10 MEQ/NS 100 ML 10 MEQ/100 ML BAG IV PRN (09:39)
[2020-05-16] MEDS ORDERED: POTASSIUM CHL 60 MEQ/NS 0.45% 500 ML IV PRN (09:39)
[2020-05-16] MEDS ORDERED: POTASSIUM CHL 40 MEQ/NS 0.45% 500 ML IV PRN (09:39)
[2020-05-16] MEDS ORDERED: KLOR-CON PO PRN (09:39)
[2020-05-16] MEDS ORDERED: MICRO K EXTEN CAP 10 MEQ PO PRN (09:39)
[2020-05-16] MEDS ORDERED: K-DUR TAB 20 MEQ PO PRN (09:39)
[2020-05-16] MEDS: XANAX PO PRN ×2 (09:39→17:10)
[2020-05-16] MEDS: PERCOCET TAB 5/325 MG PO PRN (11:00)
[2020-05-16] MEDS: LOVENOX INJ 30 MG SYR SC SCH ×2 (11:09→22:00)
[2020-05-16] MEDS ORDERED: VOLTAREN 1 % GEL MULTI DOSE TUBE TOP PRN (11:12)
--- NOTE | 2020-05-16 21:51 | PCM.PROG ---
Progress Note - Progress Note for Day of Date of Exam: 05/16/20 - Subjective Subjective: IS BEING TREATED FOR PNEUMONIA DUE TO COVID-19 AND HYPOXIA. TODAY, HE IS ALERT AND ORIENTED, LYING IN BED ON MORNING ROUNDS. HE CONTINUES WITH COMPLAINTS OF COUGH, SHORTNESS OF BREATH, AND GENERALIZED WEAKNESS. HE IS CURRENTLY UTILIZING OXYGEN VIA NASAL CANNULA AT 2 LITERS/MINUTE. HIS OXYGEN SATURATIONS HAVE BEEN 90-94% ON NASAL CANNULA. HE DOES REPORT SLIGHT IMPROVEMENT IN SYMPTOMS TODAY. ON EXAMINATION, HEART IS REGULAR IN RATE AND RHYTHM. BILATERAL LUNGS ARE NOTED WITH SCATTERED WHEEZING THROUGHOUT. ABDOMEN IS ROUND, SOFT, AND NON-TENDER WITH NORMAL BOWEL SOUNDS NOTED IN ALL QUADRANTS. HIS VITALS THIS MORNING ARE: 98.1-80-20-90%NC-131/63. LABS WERE OBTAINED. ABNORMAL LAB JULIANA UES INCLUDE THE FOLLOWING: WBC 12.9, RBC 3.56, HGB 11.2, HCT 34.4, POTASSIUM 3.4, CHLORIDE 110, BUN 23, CREATININE 1.46, GLUCOSE 129, AST 64, CRP 30.50, TOTAL PROTEIN 5.8, ALBUMIN 2.8. BLOOD CULTURES ARE PENDING. CHEST XRAY REVEALED: Cardiac and mediastinal contours are within normal limits. Stable patchy bilateral lung opacities. Moderate hiatal hernia. Elevated left hemidiaphragm. No pleural effusion or pneumothorax. HE HAS RECEIVED ONE UNIT OF CONVALESCENT PLASMA SINCE ADMISSION. HE IS CURRENLY RECEIVING NS AT 80 ML/HR, REMDESIVIR 100MG IV DAILY, LOVENOX 30MG SC BID, SOLU-MEDROL 80MG IV Q8H, CIPRO 400MG IV Q12H, DUONEBS Q4H, PULMICORT NEBS BID, DILAUDID 1-2MG IV Q6H PRN, AND TORADOL 30MG IV Q8H PRN. WE WILL CONTINUE WITH CURRENT PLAN OF CARE TODAY. OTHERWISE, WE PLAN TO FOLLOW UP WITH AM LABS AND CONTINUE TO MONITOR. TIME SPENT ON CLINICAL ASSESSMENT, REVIEWING LABS AND IMAGING, DECISION MAKING, AND DOCUMENTATION GREATER THAN 45 MINUTES. - Past Medical Family Social History Past Med/Fam/Surg Hx: No changes since H&P Allergies: Allergies No Known Drug Allergies Allergy (Verified 03/19/17 15:35) - Review of Systems ROS: No change since H&P - Vital Signs and I&O's Vital Signs: Temperature 97.7 F Pulse Rate [Right Brachial] 87 Pulse Rate 90 Respiratory Rate 20 Blood Pressure [Right Arm] 136/72 Blood Pressure [Left Arm] 131/63 Blood Pressure 157/78 O2 Sat by Pulse Oximetry 92 Intake and Output: Intake & Output 05/14/20 05/15/20 05/16/20 05/17/20 11:59 11:59 11:59 11:59 Intake Total 1288 / 1288 3388 / 3388 2292 / 2292 880 / 880 Output Total 1350 / 1350 250 / 250 Balance 1288 / 1288 3388 / 3388 942 / 942 630 / 630 - Physical Exam Oriented: Normal Eyes: Normal Ear: Normal Nose: Normal Throat: Normal Respiratory: Generalized, Diminished, Wheezes Cardiovascular: Normal : Normal Auscultation: Bowel Sounds: Normal Palpation: Normal Tenderness: Normal Skin: Normal Musculoskeletal: Normal Psychiatric: Normal Mood Description: Calm Affect: Normal Speech Pattern: Clear, Appropriate - Laboratory and Diagnostics Result Diagrams: 05/16/20 05:15 05/16/20 05:15 Labs: 05/13/20 18:26 Blood Blood Culture - Preliminary 05/13/20 18:20 Blood Blood Culture - Preliminary Laboratory WBC 12.9 X10^3/uL (3.6-10.0) H 05/16/20 05:15 RBC 3.56 X10^6/uL (4.7-6.0) L 05/16/20 05:15 Hgb 11.2 g/dL (13.5-18.0) L 05/16/20 05:15 Hct 34.4 % (42.0-54.0) L 05/16/20 05:15 MCV 96.6 fL (80.0-100.0) 05/16/20 05:15 MCH 31.5 pg (27.0-34.0) 05/16/20 05:15 MCHC 32.7 g/dL (33.0-35.0) L 05/16/20 05:15 RDW 14.2 % (11.6-16.5) 05/16/20 05:15 Plt Count 247 X10^3/uL (150.0-450.0) 05/16/20 05:15 MPV 8.2 fL (7.4-11.0) 05/16/20 05:15 Neut % (Auto) 87.9 % (42.0-75.0) H 05/16/20 05:15 Lymph % (Auto) 6.6 % (21.0-51.0) L 05/16/20 05:15 [place] % (Auto) 5.4 % (0.0-13.0) 05/16/20 05:15 Eos % (Auto) 0.0 % (0.9-2.9) L 05/16/20 05:15 Baso % (Auto) 0.1 % (0.2-1.0) L 05/16/20 05:15 Neut # (Auto) 11.3 x10^3/uL (2.2-4.8) H 05/16/20 05:15 Lymph # (Auto) 0.8 X10^3/uL (1.3-2.9) L 05/16/20 05:15 [place] # (Auto) 0.7 x10^3/uL (0.3-0.8) 05/16/20 05:15 Eos # (Auto) 0.0 x10^3/uL (0.0-0.2) 05/16/20 05:15 Baso # (Auto) 0.0 X10^3/uL (0.0-0.1) 05/16/20 05:15 Absolute Nucleated RBC 0.0 /100WBC 05/16/20 05:15 ESR 13 MM/HOUR (0-15) 05/13/20 18:20 Sample Site Rbra 05/15/20 04:58 ABG pH 7.420 (7.35-7.45) 05/15/20 04:58 ABG pCO2 37.0 mmHg (35.0-45.0) 05/15/20 04:58 ABG pO2 73.0 mmHg (80.0-100.0) L 05/15/20 04:58 ABG HCO3 24.0 mmol/L (22-26) 05/15/20 04:58 ABG O2 Saturation 95.0 % (90-100) 05/15/20 04:58 ABG Base Excess -0.2 mmol/L (-2.0-2.0) 05/15/20 04:58 Juanito Test Na 05/15/20 04:58 A-a Gradient 80.0 mmHg 05/15/20 04:58 FiO2 28.0 05/15/20 04:58 Blood Gas Comments Aakash abg well-mtf 05/15/20 04:58 Sodium 143 mmol/L (136-145) 05/16/20 05:15 Corrected Sodium 144 mmol/L (136-145) 05/16/20 05:15 Potassium 3.4 mmol/L (3.5-5.1) L 05/16/20 05:15 Chloride 110 mmol/L (98-107) H 05/16/20 05:15 Carbon Dioxide 21.2 mmol/L (21-32) 05/16/20 05:15 BUN 23 mg/dL (7-18) H 05/16/20 05:15 Creatinine 1.46 mg/dL (0.70-1.30) H 05/16/20 05:15 Est GFR (MDRD) Af Amer > 60 (>60) 05/16/20 05:15 Est GFR (MDRD) Non-Af 50 (>60) L 05/16/20 05:15 Glucose 129 mg/dL (65-99) H 05/16/20 05:15 Calcium 8.6 mg/dL (8.5-10.1) 05/16/20 05:15 Corrected Calcium 9.6 mg/dL (8.5-10.1) 05/16/20 05:15 Magnesium 2.0 mg/dL (1.7-2.9) 05/16/20 05:15 Ferritin 188 ng/mL (26-388) 05/16/20 05:15 Total Bilirubin 0.20 mg/dL (0.2-1.0) 05/16/20 05:15 AST 64 Units/L (15-37) H 05/16/20 05:15 ALT 59 Units/L (12-78) 05/16/20 05:15 Alkaline Phosphatase 59 Units/L (46-116) 05/16/20 05:15 C-Reactive Protein 30.50 mg/L (0-3.0) H 05/16/20 05:15 B-Natriuretic Peptide 35.2 pg/mL (0-79) 05/16/20 05:15 Total Protein 5.8 g/dL (6.4-8.2) L 05/16/20 05:15 Albumin 2.8 g/dL (3.4-5.0) L 05/16/20 05:15 Globulin 3.0 g/dL (2.5-4.5) 05/16/20 05:15 Albumin/Globulin Ratio 0.9 Ratio (1.1-2.1) L 05/16/20 05:15 Specimen Type Catherized urine 05/15/20 21:00 Urine Color Straw (YELLOW) 05/15/20 21:00 Urine Appearance Clear (CLEAR) 05/15/20 21:00 Urine pH 6.0 (5.0 - 8.0) 05/15/20 21:00 Ur Specific [place] 1.010 (1.000-1.030) 05/15/20 21:00 Urine Protein 1+ (NEGATIVE) 05/15/20 21:00 Urine Glucose (UA) Negative (NEGATIVE) 05/15/20 21:00 Urine Ketones Negative (NEGATIVE) 05/15/20 21:00 Urine Occult Blood 3+ (NEGATIVE) 05/15/20 21:00 Urine Nitrite Negative (NEGATIVE) 05/15/20 21:00 Urine Bilirubin Negative (NEGATIVE) 05/15/20 21:00 Urine Urobilinogen Normal (NORMAL) 05/15/20 21:00 Ur Leukocyte Esterase Negative (NEGATIVE) 05/15/20 21:00 Urine RBC 0-2 /HPF (0-3) 05/15/20 21:00 Urine WBC None seen /HPF (0-5) 05/15/20 21:00 Ur Squamous Epith Cells Few /HPF (NEGATIVE) 05/15/20 21:00 Amorphous Sediment 2+ /HPF (NEGATIVE) 05/13/20 23:00 Urine Bacteria Trace /HPF (NEGATIVE) 05/15/20 21:00 Urine Mucus Many /HPF (NEGATIVE) 05/13/20 23:00 Ur Culture Indicated? No/not indicated 05/15/20 21:00 Influenza Type A (PCR) Negative (NEGATIVE) 05/13/20 23:00 Influenza Type B (PCR) Negative (NEGATIVE) 05/13/20 23:00 SARS CoV-2 RNA Rapid JERRELL Positive (NEGATIVE) A 05/13/20 17:10 Blood Type A POSITIVE 05/14/20 09:55 - Plan (1) Bronchitis due to 2019 novel coronavirus Status: Acute Plan: NS AT 80 ML/HR, REMDESIVIR 100MG IV DAILY, LOVENOX 30MG SC BID, SOLU- MEDROL 80MG IV Q8H, CIPRO 400MG IV Q12H, DUONEBS Q4H, PULMICORT NEBS BID, DILAUDID 1-2MG IV Q6H PRN, AND TORADOL 30MG IV Q8H PRN. (2) Hypoxia Status: Acute
[2020-05-16] MEDS: KLONOPIN TAB 0.5 MG PO SCH (22:00)
[2020-05-16] MEDS: REMDESIVIR 100 MG in NS 250 ML IV 250 ML IV SCH (22:36)
[2020-05-17] MEDS: NS 1000 ML 1,000 ML IV SCH ×3 (04:00→21:00)
[2020-05-17] MEDS: TORADOL 30 MG VIAL IVP PRN ×2 (04:01→23:31)
[2020-05-17] MEDS: PERCOCET TAB 5/325 MG PO PRN (04:01)
[2020-05-17] MEDS: XANAX PO PRN ×3 (04:02→20:22)
[2020-05-17] MEDS: DUONEB 0.5 MG/3 MG (3 mL) NEB SCH ×6 (04:42→20:37)
[2020-05-17] MEDS: SOLU-Medrol 40 MG VIAL IVP SCH ×3 (05:00→21:29)
[2020-05-17 05:27] LABS: BASOPHILS % (AUTO) 0.1 % (0.2-1.0); HEMATOCRIT 33.7 % (42.0-54.0); HEMOGLOBIN 11.3 g/dL (13.5-18.0); LYMPHOCYTES # (AUTO) 0.8 X10^3/uL (1.3-2.9); LYMPHOCYTES % (AUTO) 7.4 % (21.0-51.0); MEAN CORPUSCULAR HEMOGLOBIN 32.1 pg (27.0-34.0); MEAN CORPUSCULAR HGB CONC 33.5 g/dL (33.0-35.0); MEAN CORPUSCULAR VOLUME 95.9 fL (80.0-100.0); MEAN PLATELET VOLUME 7.5 fL (7.4-11.0); MONOCYTES # (AUTO) 0.3 x10^3/uL (0.3-0.8); NEUTROPHILS # (AUTO) 9.7 x10^3/uL (2.2-4.8); NEUTROPHILS % (AUTO) 89.5 % (42.0-75.0); PLATELET COUNT 269 X10^3/uL (150.0-450.0); RED BLOOD COUNT 3.52 X10^6/uL (4.7-6.0); RED CELL DISTRIBUTION WIDTH 14.8 % (11.6-16.5); WHITE BLOOD COUNT 10.8 X10^3/uL (3.6-10.0)
[2020-05-17 05:37] LABS: ALBUMIN 2.7 g/dL (3.4-5.0); CALCIUM 8.6 mg/dL (8.5-10.1); COR CA(FOR HYPOALB) 9.6 mg/dL (8.5-10.1); CREATININE 1.7 mg/dL (0.70-1.30); TOTAL PROTEIN 5.4 g/dL (6.4-8.2)
[2020-05-17 06:09] LABS: ABG BASE EXCESS -2.4 mmol/L (-2.0-2.0); ABG HCO3 21.6 mmol/L (22-26); FRACTIONATED INSPIRED OXYGEN 21
[2020-05-17] MEDS: CIPRO IV 400 MG PREMIX* 400 MG/200 ML IV.SOLN. IV SCH ×2 (08:00→21:29)
[2020-05-17] MEDS: PROTONIX INJ 40 MG VIAL IVP SCH ×2 (08:00→20:23)
--- NOTE | 2020-05-17 08:12 | RAD ---
HISTORYCOVID, SOBSTUDYCHEST, 1 [id number]/16/2020FINDINGSThe trachea is midline. Normal heart size. There is a retrocardiac hiatal hernia unchanged since prior. There is no evidence of effusions or pneumothorax. There are small ground-glass radiopacities in the right lower lobe unchanged since prior and in the right upper lobeIMPRESSIONTenuous ground-glass radiopacities right upper lobe and right lower lobe. Hiatal hernia with patchy left lower lobe atelectasisElectronically signed by: Lary Dave (May 17, 2020 08:10:54)
[2020-05-17] MEDS: PULMICORT NEB TX 0.5 MG NEB SCH ×2 (09:17→20:37)
[2020-05-17] MEDS: PEPCID 20 MG IV PREMIX* 20 MG/50 ML BAG IV SCH (09:35)
[2020-05-17] MEDS: DILAUDID INJ IVP PRN ×2 (11:08→23:30)
[2020-05-17] MEDS: MILK OF MAGNESIA PO SCH (11:10)
[2020-05-17] MEDS: PHENERGAN TAB 25 MG PO SCH ×4 (11:10→20:22)
[2020-05-17] MEDS: LOVENOX INJ 30 MG SYR SC SCH ×2 (11:10→20:23)
[2020-05-17] MEDS: FLOMAX PO SCH (11:11)
[2020-05-17] MEDS: GEODON PO SCH ×2 (11:11→20:22)
[2020-05-17] MEDS: COLACE CAP 100 MG PO SCH ×2 (11:12→20:21)
[2020-05-17] MEDS: KLONOPIN TAB 0.5 MG PO SCH (20:22)
[2020-05-17] MEDS: REMDESIVIR 100 MG in NS 250 ML IV 250 ML IV SCH (20:22)
[2020-05-18] MEDS: DUONEB 0.5 MG/3 MG (3 mL) NEB SCH ×3 (01:10→09:15)
[2020-05-18] MEDS: XANAX PO PRN (04:46)
[2020-05-18] MEDS: PERCOCET TAB 5/325 MG PO PRN ×2 (04:46→11:15)
[2020-05-18] MEDS: SOLU-Medrol 40 MG VIAL IVP SCH (05:10)
[2020-05-18 05:28] LABS: BASOPHILS % (AUTO) 0.1 % (0.2-1.0); HEMOGLOBIN 11.6 g/dL (13.5-18.0); LYMPHOCYTES # (AUTO) 1.1 X10^3/uL (1.3-2.9); LYMPHOCYTES % (AUTO) 8.3 % (21.0-51.0); MEAN CORPUSCULAR HEMOGLOBIN 31.5 pg (27.0-34.0); MEAN CORPUSCULAR HGB CONC 33.1 g/dL (33.0-35.0); MEAN CORPUSCULAR VOLUME 95.3 fL (80.0-100.0); MEAN PLATELET VOLUME 8.2 fL (7.4-11.0); MONOCYTES # (AUTO) 0.5 x10^3/uL (0.3-0.8); MONOCYTES % (AUTO) 3.8 % (0.0-13.0); NEUTROPHILS # (AUTO) 11.1 x10^3/uL (2.2-4.8); NEUTROPHILS % (AUTO) 87.8 % (42.0-75.0); PLATELET COUNT 290 X10^3/uL (150.0-450.0); RED BLOOD COUNT 3.68 X10^6/uL (4.7-6.0); RED CELL DISTRIBUTION WIDTH 14.6 % (11.6-16.5); WHITE BLOOD COUNT 12.6 X10^3/uL (3.6-10.0)
[2020-05-18 05:45] LABS: ALANINE AMINOTRANSFERASE 126 Units/L (12-78); ALBUMIN 2.8 g/dL (3.4-5.0); ALKALINE PHOSPHATASE 60 Units/L (46-116); ASPARTATE AMINO TRANSFERASE 76 Units/L (15-37); BLOOD UREA NITROGEN 29 mg/dL (7-18); CALCIUM 8.2 mg/dL (8.5-10.1); CHLORIDE 112 mmol/L (98-107); COR CA(FOR HYPOALB) 9.2 mg/dL (8.5-10.1); COR NA(FOR HYPERGLY) 145 mmol/L (136-145); CREATININE 1.38 mg/dL (0.70-1.30); SODIUM 144 mmol/L (136-145); TOTAL PROTEIN 5.6 g/dL (6.4-8.2); eGFR NON BLACK RACES 54 (>60)
[2020-05-18 06:05] LABS: BAND NEUTROPHILS % 2 % (0-10)
[2020-05-18 06:06] LABS: PLATELET MORPHOLOGY COMMENT NORMAL (NORMAL)
[2020-05-18 06:33] LABS: CARBON DIOXIDE 20.1 mmol/L (21-32)
--- NOTE | 2020-05-18 06:45 | RAD ---
HISTORYCOVID, SOBSTUDYCHEST, 1 [id number]/17/2020.TECHNIQUEAP view of the chestFINDINGSPatient is rotated. The mediastinal contour is widened but this may be due to rotation. Cardiac silhouette is normal in size. Similar appearance of patchy multifocal bilateral infiltrates, worst in the lung bases. Moderate hiatal hernia. No definite pleural effusion or pneumothorax.IMPRESSIONStable multifocal infiltrates. Moderate hiatal hernia.Prominent mediastinum. This is favored to be due to patient rotation but consider CTA chest if concerned for acute mediastinal or aortic pathology.Electronically signed by: Iam Gonzalez (May 18, 2020 06:43:11)
[2020-05-18] MEDS: PULMICORT NEB TX 0.5 MG NEB SCH (09:15)
[2020-05-18] MEDS: CIPRO IV 400 MG PREMIX* 400 MG/200 ML IV.SOLN. IV SCH (09:23)
[2020-05-18] MEDS: MILK OF MAGNESIA PO SCH (09:25)
[2020-05-18] MEDS: COLACE CAP 100 MG PO SCH (09:25)
[2020-05-18] MEDS: FLOMAX PO SCH (09:25)
[2020-05-18] MEDS: GEODON PO SCH (09:25)
[2020-05-18] MEDS: PEPCID 20 MG IV PREMIX* 20 MG/50 ML BAG IV SCH (09:26)
[2020-05-18] MEDS: PHENERGAN TAB 25 MG PO SCH ×2 (09:26→13:01)
[2020-05-18] MEDS: PROTONIX INJ 40 MG VIAL IVP SCH (09:26)
[2020-05-18] MEDS: LOVENOX INJ 30 MG SYR SC SCH (09:26)
[2020-05-18 12:59] VITALS: BP 117/62
== END 2020-05-18 12:10 | disposition home or self-care (01) | DRG 179 ==
LOC: MED/SURG → OBSVTOIN 16:59 → ICU 05-16 20:01
PROVIDERS: ADMIT Internal Medicine; ATTEND Internal Medicine
DX: R06.03 Acute respiratory distress; R94.4 Abnormal results of kidney function studies; U07.1 COVID-19; R26.89 Other abnormalities of gait and mobility; R53.1 Weakness; R94.31 Abnormal electrocardiogram [ECG] [EKG]; R79.89 Other specified abnormal findings of blood chemistry; R79.82 Elevated C-reactive protein (CRP)

== ENCOUNTER 2020-12-17 20:00 | Inpatient (IN) ==
[2020-12-17] MEDS ORDERED: PEPCID TAB 40 MG PO SCH (21:22)
[2020-12-17] MEDS ORDERED: PHENERGAN TAB 25 MG PO PRN (21:22)
[2020-12-17] MEDS ORDERED: COLACE CAP 100 MG PO ONE (21:29)
[2020-12-17] MEDS ORDERED: KLONOPIN TAB 0.5 MG ONE (21:29)
[2020-12-17] MEDS ORDERED: GEODON PO ONE (21:29)
[2020-12-17] MEDS ORDERED: PEPCID TAB 40 MG ONE (21:30)
[2020-12-17] MEDS ORDERED: MEGACE PO ONE (21:30)
[2020-12-17] MEDS ORDERED: NS 1000 ML 1,000 ML ONE (21:31)
[2020-12-17] MEDS: NS 1000 ML 1,000 ML IV SCH (21:50)
[2020-12-17] MEDS: MEGACE PO SCH (21:52)
[2020-12-17] MEDS: COLACE CAP 100 MG PO SCH (21:52)
[2020-12-17] MEDS: GEODON PO SCH (21:52)
[2020-12-17] MEDS: KLONOPIN TAB 0.5 MG PO SCH (21:53)
[2020-12-17 22:02] LABS: BASOPHILS # (AUTO) 0.1 X10^3/uL (0.0-0.1); BASOPHILS % (AUTO) 1.2 % (0.2-1.0); EOSINOPHILS # (AUTO) 0.1 x10^3/uL (0.0-0.2); HEMATOCRIT 40.4 % (42.0-54.0); HEMOGLOBIN 13.4 g/dL (13.5-18.0); LYMPHOCYTES # (AUTO) 2.1 X10^3/uL (1.3-2.9); LYMPHOCYTES % (AUTO) 30.7 % (21.0-51.0); MEAN CORPUSCULAR HGB CONC 33.2 g/dL (33.0-35.0); MEAN CORPUSCULAR VOLUME 96.6 fL (80.0-100.0); MEAN PLATELET VOLUME 8.2 fL (7.4-11.0); MONOCYTES # (AUTO) 0.4 x10^3/uL (0.3-0.8); MONOCYTES % (AUTO) 6.1 % (0.0-13.0); PLATELET COUNT 236 X10^3/uL (150.0-450.0); RED BLOOD COUNT 4.18 X10^6/uL (4.7-6.0); RED CELL DISTRIBUTION WIDTH 14.1 % (11.6-16.5); WHITE BLOOD COUNT 6.7 X10^3/uL (3.6-10.0)
[2020-12-17 22:19] LABS: ALANINE AMINOTRANSFERASE 11 Units/L (12-78); ALBUMIN 3.8 g/dL (3.4-5.0); ALKALINE PHOSPHATASE 74 Units/L (46-116); ASPARTATE AMINO TRANSFERASE 14 Units/L (15-37); BLOOD UREA NITROGEN 13 mg/dL (7-18); CALCIUM 9.1 mg/dL (8.5-10.1); CARBON DIOXIDE 23.4 mmol/L (21-32); CHLORIDE 110 mmol/L (98-107); CKMB % 2.1 % (<4); CREATINE KINASE 47 Units/L (39-308); CREATINE KINASE MB < 1.0 ng/mL (0-4.0); CREATININE 1.35 mg/dL (0.70-1.30); SODIUM 144 mmol/L (136-145); TROPONIN I < 0.02 ng/mL (0-1.5); eGFR NON BLACK RACES 55 (>60)
[2020-12-18 02:19] LABS: BILIRUBIN,URINE NEGATIVE (NEGATIVE); BLOOD/HEMOGLOBIN,URINE 3+ (NEGATIVE); GLUCOSE, URINE NEGATIVE (NEGATIVE); KETONES,URINE 1+ (NEGATIVE); LEUKOCYTE ESTERASE ,URINE NEGATIVE (NEGATIVE); NITRITES,URINE NEGATIVE (NEGATIVE); PROTEIN,URINE 1+ (NEGATIVE); UROBILINOGEN,URINE NORMAL (NORMAL)
[2020-12-18 02:23] LABS: APPEARANCE,URINE CLEAR (CLEAR); BACTERIA,URINE NEGATIVE /HPF (NEGATIVE); COLOR,URINE YELLOW (YELLOW); SQUAMOUS EPITHELIAL CELL,UR RARE /HPF (NEGATIVE)
[2020-12-18] MEDS ORDERED: DILAUDID ONE ×2 (04:02→08:15)
[2020-12-18] MEDS: DILAUDID PO PRN ×2 (04:05→08:27)
[2020-12-18] MEDS: NS 1000 ML 1,000 ML IV SCH ×2 (04:06→13:34)
[2020-12-18 05:10] LABS: BASOPHILS # (AUTO) 0.1 X10^3/uL (0.0-0.1); BASOPHILS % (AUTO) 1.2 % (0.2-1.0); EOSINOPHILS # (AUTO) 0.2 x10^3/uL (0.0-0.2); HEMATOCRIT 33.8 % (42.0-54.0); HEMOGLOBIN 11.5 g/dL (13.5-18.0); LYMPHOCYTES # (AUTO) 2.2 X10^3/uL (1.3-2.9); LYMPHOCYTES % (AUTO) 40.4 % (21.0-51.0); MEAN CORPUSCULAR HEMOGLOBIN 32.2 pg (27.0-34.0); MEAN CORPUSCULAR HGB CONC 34.1 g/dL (33.0-35.0); MEAN CORPUSCULAR VOLUME 94.4 fL (80.0-100.0); MEAN PLATELET VOLUME 8.6 fL (7.4-11.0); MONOCYTES # (AUTO) 0.6 x10^3/uL (0.3-0.8); MONOCYTES % (AUTO) 11.7 % (0.0-13.0); NEUTROPHILS # (AUTO) 2.4 x10^3/uL (2.2-4.8); NEUTROPHILS % (AUTO) 43.7 % (42.0-75.0); PLATELET COUNT 214 X10^3/uL (150.0-450.0); RED BLOOD COUNT 3.58 X10^6/uL (4.7-6.0); RED CELL DISTRIBUTION WIDTH 13.7 % (11.6-16.5); WHITE BLOOD COUNT 5.5 X10^3/uL (3.6-10.0)
[2020-12-18 05:12] LABS: ALANINE AMINOTRANSFERASE 12 Units/L (12-78); ALKALINE PHOSPHATASE 59 Units/L (46-116); ASPARTATE AMINO TRANSFERASE 11 Units/L (15-37); BLOOD UREA NITROGEN 12 mg/dL (7-18); CALCIUM 8.6 mg/dL (8.5-10.1); CARBON DIOXIDE 22.3 mmol/L (21-32); CHLORIDE 112 mmol/L (98-107); COR CA(FOR HYPOALB) 9.4 mg/dL (8.5-10.1); CREATININE 1.16 mg/dL (0.70-1.30); SODIUM 146 mmol/L (136-145); TOTAL PROTEIN 5.6 g/dL (6.4-8.2); eGFR NON BLACK RACES > 60 (>60)
[2020-12-18] MEDS: DUONEB 0.5 MG/3 MG (3 mL) NEB SCH ×3 (06:05→21:27)
--- NOTE | 2020-12-18 06:20 | RAD ---
HISTORYFeverSTUDYChest AP [id number]/18/2020FINDINGSHeart is within normal limits in size. The josue are normal. The a cecilia is ectatic but unchanged. The lungs are free of acute infiltrates. No pleural effusions are iden tified. There is a hiatal hernia present. The right hemidiaphragm is chronically mildly elevated. Bon y thorax is unremarkable with the exception of chronic rotator cuff disease on the right.IMPRESSIONNo acute infiltratesHiatal herniaElectronically signed by: ABENA RAO (Dec 18, 2020 06:17:55)
[2020-12-18] MEDS: GEODON PO SCH ×2 (08:26→20:16)
[2020-12-18] MEDS: COLACE CAP 100 MG PO SCH ×2 (08:28→20:16)
[2020-12-18] MEDS: MEGACE PO SCH ×2 (08:28→20:16)
[2020-12-18] MEDS: FLOMAX PO SCH (08:28)
[2020-12-18] MEDS ORDERED: PEPCID TAB 40 MG PO SCH (09:00)
--- NOTE | 2020-12-18 10:37 | DR.H&P ---
H&P - History & Physical for Day of: H&P Date: 12/17/20 - Chief Complaint Chief Complaint: WEAKNESS, DIARRHEA, FEVER, LOWER BACK PAIN, SEVERE TOOTHACHE - History of Present Illness History of Present Illness: IS A 75 YEAR OLD PATIENT OF OURS. HE WAS A DIRECT ADMISSION TO THE HOSPITAL DUE TO COMPLAINTS OF WEAKNESS, DIARRHEA, FEVER, LOWER BACK PAIN. PATIENT REPORTS THAT HE HAS HAD DECREASED ORAL INTAKE. HE REPORTS THAT SYMPTOMS STARTED ONE DAY PRIOR. LOWER BACK PAIN IS DESCRIBED DULL, CONSTANT, AND IS CURRENTLY RATED A 4/10. HE ALSO ADMITS TO FACIAL PAIN AND TOOTHACHE. PATIENT BELIEVES HE MAY HAVE AN ABSCESSED TOOTH. HIS PMH INCLUDES: CAD, COPD, GERD, COLITIS, BPH, KIDNEY STONES, ARTHRITIS, ANEMIA, ABDOMINAL SURGERY, HIP REPLACEMENT, AND SCHIZOPHRENIA. ON ARRIVAL TO THE HOSPITAL, VITALS WERE 98.1-92-20-95%-125/87. LABS WERE OBTAINED. ABNORMAL LAB VALUES INCLUDE THE FOLLOWING: RBC 4.18, HGB 13.4, HCT 40.4, CHLORIDE 110, CREATININE 1.35, GLUCOSE 100, AST 14, ALT 11. CARDIAC ENZYMES WERE WITHIN NORMAL LIMITS. URINALYSIS RE VEALED: WBC 0-2, RBC 3-5, BACTERIA NEGATIVE, LEUKOCYTES NEGATIVE, OCCULT BLOOD 3+. COVID, INFLUENZA, AND RSV NEGATIVE. BLOOD AND URINE CULTURES WERE SET UP. A CHEST XRAY WAS OBTAINED AND REVEALED: Heart is within normal limits in size. The josue are normal. The aorta is ectatic but unchanged. The lungs are free of acute infiltrates. No pleural effusions are identified. There is a hiatal hernia pres ent. The right hemidiaphragm is chronically mildly elevated. Bony thorax is unremarkable with the exception of chronic rotator cuff disease on the right. EKG REVEALED: SINUS RHYTHM WITH HR 76. HE WAS STARTED ON NORMAL SALINE AT 80 ML/HR, DUONEBS TID, PEPCID 20MG IV Q12H, PROTONIX 40GM IV BID, DILAUDID 2MG IV Q4H PRN, TORADOL 30MG IV Q8H, ELIQUIS 2.5MG PO BID, KLONOPIN 1MG PO HS, MEGACE 40MG PO BID, PHENERGAN 25MG PO Q6H PRN, FLOMAX 0.4MG PO DAILY, AND GEODON 20MG PO BID. WE PLAN TO OBTAIN A FACIAL BONES CT WITH CONTRAST TO RULE OUT ABSCESS AND AN ABDOMEN/PELVIS CT WITHOUT CONTRAST TO RULE OUT STONES OR OTHER ACUTE PROCESS DUE TO DIARRHEA. OTHERWISE, WE WILL FOLLOW UP WITH AM LABS AND CONTINUE TO MONITOR. TIME SPENT ON CLINICAL ASSESSMENT, REVIEWING LABS AND IMAGING, DECISION MAKING, AND DOCUMENTATION GREATER THAN 75 MINUTES. - Past Medical History Past Medical History: Hypertension, Arthritis, Kidney Stones Additional Medical History: BIPOLAR DISORDER (NO MEDICATION IN 2 YEARS), BPH, HX GASTROINTESTINAL ULCER, COLITIS, HX FX (R) FOOT, PARKINSON'S, CATARACTS, UTI'S, BACK PAIN - Past Surgical History Surgical History: Abdominal Surgery, Joint Replacement, Ortho Surgery, Other Additional Surgical History: HERNIA REPAIR, ACDF SURGERY -JUN 2016 - Family History Family Medical History: MS, Coronary Artery Disease, Hypertension - Social History Does any household member use tobacco: No Alcohol Use: None Drug Use: None - Medications Home Medications: No Known Drug Allergies Allergy (Verified 11/13/20 11:00) CONTINUE taking the following medications megestrol 40 mg PO BID 12/18/20 [History] - Review of Systems Constitutional: See HPI, Fever, Chills, Weakness, Malaise Eyes: No Symptoms Reported ENT: No Symptoms Reported Respiratory: No Symptoms Reported Cardiovascular: No Symptoms Reported Gastrointestinal: See HPI, Nausea, Abdominal Pain, Diarrhea Genitourinary: See HPI, Hematuria Musculoskeletal: See HPI, Back Pain Skin: No Symptoms Reported Neurological: Weakness - Physical Exam Vital Signs: Temperature 98.3 F Pulse Rate [Right] 76 Pulse Rate 70 Respiratory Rate 22 Blood Pressure [Right Arm] 117/62 Blood Pressure [Left Arm] 103/60 Blood Pressure [Right Arm] 120/72 Blood Pressure 136/72 O2 Sat by Pulse Oximetry 97 Oriented: Normal Eyes: Normal Ear: Normal Nose: Normal Throat: Normal Respiratory: Diminished Throughout Cardiovascular: Normal : Hematuria Auscultation: Bowel Sounds: Normal Palpation: Normal Tenderness: Suprapubic, Mild Skin: Decreased Turgur Musculoskeletal: Back:Lumbar, Tender Psychiatric: Normal Mood Description: Calm Affect: Normal Speech Pattern: Clear - Assessment/Plan (1) Gastroenteritis Status: Acute Plan: ADMIT, NORMAL SALINE AT 80 ML/HR, DUONEBS TID, PEPCID 20MG IV Q12H, PROTONIX 40GM IV BID, DILAUDID 2MG IV Q4H PRN, TORADOL 30MG IV Q8H, ELIQUIS 2.5MG PO BID, KLONOPIN 1MG PO HS, MEGACE 40MG PO BID, PHENERGAN 25MG PO Q6H PRN, FLOMAX 0.4MG PO DAILY, AND GEODON 20MG PO BID. OBTAIN ABDOMEN/PELVIS CT (2) Abdominal pain Qualifiers: Abdominal location: generalized Qualified Code(s): R10.84 - Generalized abdominal pain Status: Acute (3) Dehydration Status: Acute (4) Fever Qualifiers: Fever type: unspecified Qualified Code(s): R50.9 - Fever, unspecified Status: Acute (5) Generalized weakness Status: Acute - Allergies Allergies/Adverse Reactions: Allergies Allergy/AdvReac Type Severity Reaction Status Date / Time No Known Drug Allergies Allergy Verified 11/13/20 11:00
[2020-12-18 10:52] VITALS: BMI 17.9
[2020-12-18] MEDS: TORADOL 30 MG VIAL IVP SCH ×2 (11:15→17:38)
[2020-12-18] MEDS: PEPCID 20 MG IV PREMIX* 20 MG/50 ML BAG IV SCH ×2 (11:15→20:16)
[2020-12-18] MEDS: PROTONIX INJ 40 MG VIAL IVP SCH ×2 (11:15→20:18)
[2020-12-18] MEDS: ELIQUIS PO SCH ×2 (11:15→20:16)
--- NOTE | 2020-12-18 11:23 | PCM.PROG ---
Progress Note - Progress Note for Day of Date of Exam: 12/18/20 - Subjective Subjective: WAS ADMITTED FOR GASTROENTERITIS, ABDOMINAL PAIN, DEHYDRATION, FEVER, AND GENERALIZED WEAKNESS. TODAY, HE IS ALERT AND ORIENTED, LYING IN BED ON MORNING ROUNDS. HE CONTINUES WITH COMPLAINTS OF ABDOMINAL CRAMPING, LOWER BACK PAIN, AND GENERALIZED WEAKNESS. HE ALSO CONTINUES WITH A SEVERE TOOTHACHE. ON EXAMINATION, HEART IS REGULAR IN RATE AND RHYTHM. BILATERAL LUNGS ARE NOTED TO HAVE DIMINISHED LUNG SOUNDS THROUGHOUT. ABDOMEN IS FLAT, SOFT, AND NON-TENDER WITH HYPERACTIVE BOWEL SOUNDS NOTED IN ALL QUADRANTS. HIS VITALS THIS MORNING ARE: 98.4-82-20-98%-117/56. LABS WERE OBTAINED. ABNORMAL LAB VALUES INCLUDE THE FOLLOWING: RBC 3.58, HGB 11.5, HCT 33.8, SODIUM 146, CHLORIDE 112, AST 11, TOTAL PROTEIN 5.6, ALBUMIN 3.0. URINE AND BLOOD CULTURES ARE PENDING. HE IS CURRENTLY RECEIVING NORMAL SALINE AT 80 ML/HR, DUONEBS TID, PEPCID 20MG IV Q12H, PROTONIX 40GM IV BID, DILAUDID 2MG IV Q4H PRN, TORADOL 30MG IV Q8H, ELIQUIS 2.5MG PO BID, KLONOPIN 1MG PO HS, MEGACE 40MG PO BID, PHENERGAN 25MG PO Q6H PRN, FLOMAX 0.4MG PO DAILY, AND GEODON 20MG PO BID. TODAY, WE PLAN TO OBTAIN A FACIAL BONES CT WITH CONTRAST TO RULE OUT ABSCESS AND AN ABDOMEN/PELVIS CT WITHOUT CONTRAST TO RULE OUT STONES OR OTHER ACUTE PROCESS DUE TO DIARRHEA. WE WILL ALSO OBTAIN STOOL STUDIES. OTHERWISE, WE PLAN TO FOLLOW UP WITH AM LABS AND CONTINUE TO MONITOR. TIME SPENT ON CLINICAL ASSESSMENT, REVIEWING LABS AND IMAGING, DECISION MAKING, AND DOCUMENTATION GREATER THAN 45 MINUTES. - Past Medical Family Social History Past Med/Fam/Surg Hx: No changes since H&P Allergies: Allergies No Known Drug Allergies Allergy (Verified 11/13/20 11:00) - Review of Systems ROS: No change since H&P - Vital Signs and I&O's Vital Signs: Temperature 98.4 F Pulse Rate [Right] 82 Pulse Rate 70 Respiratory Rate 20 Blood Pressure [Right Arm] 117/62 Blood Pressure [Left Arm] 117/56 Blood Pressure [Right Arm] 120/72 Blood Pressure 136/72 O2 Sat by Pulse Oximetry 98 Intake and Output: Intake & Output 12/15/20 12/16/20 12/17/20 12/18/20 11:59 11:59 11:59 11:59 Intake Total 766 / 766 Balance 766 / 766 - Physical Exam Oriented: Normal Eyes: Normal Ear: Normal Nose: Normal Throat: Normal Respiratory: Generalized, Diminished Cardiovascular: Normal : Hematuria Auscultation: Bowel Sounds: Increased Palpation: Normal Tenderness: Suprapubic, Mild Skin: Decreased Turgur Musculoskeletal: Back:Lumbar, Tender Psychiatric: Normal Mood Description: Calm Affect: Normal Speech Pattern: Clear - Laboratory and Diagnostics Result Diagrams: 12/18/20 04:11 12/18/20 04:11 Labs: Laboratory WBC 5.5 X10^3/uL (3.6-10.0) 12/18/20 04:11 RBC 3.58 X10^6/uL (4.7-6.0) L 12/18/20 04:11 Hgb 11.5 g/dL (13.5-18.0) L 12/18/20 04:11 Hct 33.8 % (42.0-54.0) L 12/18/20 04:11 MCV 94.4 fL (80.0-100.0) 12/18/20 04:11 MCH 32.2 pg (27.0-34.0) 12/18/20 04:11 MCHC 34.1 g/dL (33.0-35.0) 12/18/20 04:11 RDW 13.7 % (11.6-16.5) 12/18/20 04:11 Plt Count 214 X10^3/uL (150.0-450.0) 12/18/20 04:11 MPV 8.6 fL (7.4-11.0) 12/18/20 04:11 Neut % (Auto) 43.7 % (42.0-75.0) 12/18/20 04:11 Lymph % (Auto) 40.4 % (21.0-51.0) 12/18/20 04:11 [place] % (Auto) 11.7 % (0.0-13.0) 12/18/20 04:11 Eos % (Auto) 3.0 % (0.9-2.9) H 12/18/20 04:11 Baso % (Auto) 1.2 % (0.2-1.0) H 12/18/20 04:11 Neut # (Auto) 2.4 x10^3/uL (2.2-4.8) 12/18/20 04:11 Lymph # (Auto) 2.2 X10^3/uL (1.3-2.9) 12/18/20 04:11 [place] # (Auto) 0.6 x10^3/uL (0.3-0.8) 12/18/20 04:11 Eos # (Auto) 0.2 x10^3/uL (0.0-0.2) 12/18/20 04:11 Baso # (Auto) 0.1 X10^3/uL (0.0-0.1) 12/18/20 04:11 Absolute Nucleated RBC 0.0 /100WBC 12/18/20 04:11 Sodium 146 mmol/L (136-145) H 12/18/20 04:11 Corrected Sodium TNP 12/18/20 04:11 Potassium 3.6 mmol/L (3.5-5.1) 12/18/20 04:11 Chloride 112 mmol/L (98-107) H 12/18/20 04:11 Carbon Dioxide 22.3 mmol/L (21-32) 12/18/20 04:11 BUN 12 mg/dL (7-18) 12/18/20 04:11 Creatinine 1.16 mg/dL (0.70-1.30) 12/18/20 04:11 Est GFR (MDRD) Af Amer > 60 (>60) 12/18/20 04:11 Est GFR (MDRD) Non-Af > 60 (>60) 12/18/20 04:11 Glucose 86 mg/dL (65-99) 12/18/20 04:11 Calcium 8.6 mg/dL (8.5-10.1) 12/18/20 04:11 Corrected Calcium 9.4 mg/dL (8.5-10.1) 12/18/20 04:11 Total Bilirubin 0.30 mg/dL (0.2-1.0) 12/18/20 04:11 AST 11 Units/L (15-37) L 12/18/20 04:11 ALT 12 Units/L (12-78) 12/18/20 04:11 Alkaline Phosphatase 59 Units/L (46-116) 12/18/20 04:11 Creatine Kinase 47 Units/L (39-308) 12/17/20 21:43 CK-MB (CK-2) < 1.0 ng/mL (0-4.0) 12/17/20 21:43 CK/CKMB % Calc 2.1 % (<4) 12/17/20 21:43 Troponin I < 0.02 ng/mL (0-1.5) 12/17/20 21:43 Total Protein 5.6 g/dL (6.4-8.2) L 12/18/20 04:11 Albumin 3.0 g/dL (3.4-5.0) L 12/18/20 04:11 Globulin 2.6 g/dL (2.5-4.5) 12/18/20 04:11 Albumin/Globulin Ratio 1.2 Ratio (1.1-2.1) 12/18/20 04:11 Specimen Type Clean catch urine 12/18/20 02:00 Urine Color Yellow (YELLOW) 12/18/20 02:00 Urine Appearance Clear (CLEAR) 12/18/20 02:00 Urine pH 5.0 (5.0 - 8.0) 12/18/20 02:00 Ur Specific [place] 1.020 (1.000-1.030) 12/18/20 02:00 Urine Protein 1+ (NEGATIVE) 12/18/20 02:00 Urine Glucose (UA) Negative (NEGATIVE) 12/18/20 02:00 Urine Ketones 1+ (NEGATIVE) 12/18/20 02:00 Urine Occult Blood 3+ (NEGATIVE) 12/18/20 02:00 Urine Nitrite Negative (NEGATIVE) 12/18/20 02:00 Urine Bilirubin Negative (NEGATIVE) 12/18/20 02:00 Urine Urobilinogen Normal (NORMAL) 12/18/20 02:00 Ur Leukocyte Esterase Negative (NEGATIVE) 12/18/20 02:00 Urine RBC 3-5 /HPF (0-3) A 12/18/20 02:00 Urine WBC 0-2 /HPF (0-5) 12/18/20 02:00 Ur Squamous Epith Cells Rare /HPF (NEGATIVE) 12/18/20 02:00 Urine Bacteria Negative /HPF (NEGATIVE) 12/18/20 02:00 Ur Culture Indicated? Yes/culture set up 12/18/20 02:00 SARS-CoV-2 (PCR) Negative (NEGATIVE) 12/17/20 20:00 Influenza Type A (PCR) Negative (NEGATIVE) 12/17/20 20:00 Influenza Type B (PCR) Negative (NEGATIVE) 12/17/20 20:00 RSV (PCR) Negative (NEGATIVE) 12/17/20 20:00 - Plan (1) Gastroenteritis Status: Acute Plan: NORMAL SALINE AT 80 ML/HR, DUONEBS TID, PEPCID 20MG IV Q12H, PROTONIX 40GM IV BID, DILAUDID 2MG IV Q4H PRN, TORADOL 30MG IV Q8H, ELIQUIS 2.5MG PO BID, KLONOPIN 1MG PO HS, MEGACE 40MG PO BID, PHENERGAN 25MG PO Q6H PRN, FLOMAX 0.4MG PO DAILY, AND GEODON 20MG PO BID. OBTAIN ABDOMEN/PELVIS CT (2) Abdominal pain Status: Acute Qualifiers: Abdominal location: generalized Qualified Code(s): R10.84 - Generalized abdominal pain (3) Dehydration Status: Acute (4) Fever Status: Acute Qualifiers: Fever type: unspecified Qualified Code(s): R50.9 - Fever, unspecified (5) Generalized weakness Status: Acute
[2020-12-18] MEDS ORDERED: NS 100 ML IV 100 ML ONE (11:55)
--- NOTE | 2020-12-18 14:12 | CT ---
HISTORYSTONE SEARCH, DIARRHEA, FEVERSTUDYCT abdomen pelvis without IV contrastCOMPARISONCT 05/28/2018TECHNIQUEMultiple axial images of the abdomen and pelvis were obtained from the lung bases to the pubic symphysis without the administration of IV contrast. 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 There is abnormal ground-glass and alveolar density at the right CP angle that is similar to prior study. This is probable atelectasis. 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 No biliary ductal dilation.No pancreatic abnormality is seen.The adrenal glands appear normal.Likely 4.5 mm stone in the lower pole of the right kidney. 6.3 mm stone is suspected in the mid right kidney with a sub mm stone in the lower pole of the left kidney. No evidence of ureteral stone or hydronephrosis. Multiple phleboliths are seen in the pelvis. No bladder abnormality is seen but artifacts from right hip prosthesis limit evaluation.In the mid left kidney there is a 1.9 cm probable cyst but this is larger than prior study. There may be a 2nd parapelvic cyst or possibly a soft tissue mass more superiorly in the left renal pelvis measuring 1.5 cm. Recommend further evaluation with renal ultrasound.Increased small and large bowel air is seen without suggestion of bowel obstruction. Findings are probably due to gastroenteritis. The ascending colon is incompletely distended and mild colitis in this region is not excluded. Appendix is not seen but no pericecal inflammation is seen.No abnormalities are seen of the reproductive organs.Abdominal aorta is normal in size. IVC filter is seen at the level of the renal veins, unchanged.No suspicious lymphadenopathy.No free intraperitoneal air or fluid is seen.Right DANA. Mild deformity of the right inferior pubic ramus from old healed fracture. Bones are osteopenic. Multiple compression fractures have worsened since prior study. 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 Greatest compression deformity is seen centrally at L4 where there is 80 percent loss of height. No significant displacement of the posterior cortex is seen.IMPRESSIONProbable enteritis changes. Possible mild right-sided colitis.Bilateral nonobstructing renal stones. Two low-density lesions in the left kidney have a changed appearance since prior study. These could be cysts but cannot be confirmed on this unenhanced exam. Correlation with renal ultrasound is recommended.Multiple compression fractures are seen throughout the lower thoracic and lumbar spine, greatest at L4. These are mostly new since prior study but do not appear acute.Electronically signed by: Kemar Benjamin (Dec 18, 2020 14:09:37)
--- NOTE | 2020-12-18 14:21 | CT ---
HISTORYFacial painSTUDYCT face with IV contrastCOMPARISONNoneTECHNIQUEMultiple axial images of the facial structures were obtained from the mandible to superior portions of the orbits. Study is performed following administration of 100 cc Omnipaque 350 IV contrast. Dose reduction techniques including Automated Exposure Control (AEC) and adjustment of mA and kV were utilized.FINDINGSLikely preseptal edema in the periorbital regions. No postseptal edema is seen. Globes appear symmetric. Possible mild subcutaneous edema in the forehead. No evidence of a soft tissue abscess is seen. Minimal mucosal thickening is seen in the paranasal sinuses but no air-fluid levels are seen.There may be 1 or 2 dental caries but no evidence of a periapical abscess is seen. Nasal septum is in the midline. Mild mucosal thickening slightly narrows the maxillary ostia. No fractures are seen. 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 No evidence of abscess is seen.Electronically signed by: Kemar Benjamin (Dec 18, 2020 14:19:38)
[2020-12-18] MEDS: XANAX PO PRN (14:37)
[2020-12-18] MEDS: DILAUDID INJ IVP PRN ×2 (14:38→20:21)
[2020-12-18] MEDS: KLONOPIN TAB 0.5 MG PO SCH (20:16)
[2020-12-18 21:27] LABS: MAGNESIUM 2.2 mg/dL (1.7-2.9)
[2020-12-19] MEDS: NS 1000 ML 1,000 ML IV SCH ×2 (00:14→01:23)
[2020-12-19] MEDS ORDERED: KLOR-CON PO PRN (00:38)
[2020-12-19] MEDS ORDERED: POTASSIUM CHL 60 MEQ/NS 0.45% 500 ML IV PRN (00:38)
[2020-12-19] MEDS ORDERED: POTASSIUM CHLORIDE LIQ 20 MEQ UDC PO PRN (00:38)
[2020-12-19] MEDS ORDERED: K-RIDER 10 MEQ/NS 100 ML 10 MEQ/100 ML BAG IV PRN (00:38)
[2020-12-19] MEDS ORDERED: POTASSIUM CHL 40 MEQ/NS 0.45% 500 ML IV PRN (00:38)
[2020-12-19] MEDS ORDERED: K-DUR TAB 20 MEQ PO PRN (00:38)
[2020-12-19] MEDS ORDERED: MICRO K EXTEN CAP 10 MEQ PO PRN (00:38)
[2020-12-19] MEDS: TORADOL 30 MG VIAL IVP SCH ×3 (01:21→17:48)
[2020-12-19 05:18] LABS: BASOPHILS # (AUTO) 0.1 X10^3/uL (0.0-0.1); BASOPHILS % (AUTO) 0.8 % (0.2-1.0); EOSINOPHILS # (AUTO) 0.3 x10^3/uL (0.0-0.2); EOSINOPHILS % (AUTO) 4.3 % (0.9-2.9); HEMATOCRIT 28.5 % (42.0-54.0); HEMOGLOBIN 9.6 g/dL (13.5-18.0); LYMPHOCYTES # (AUTO) 2.4 X10^3/uL (1.3-2.9); LYMPHOCYTES % (AUTO) 34.2 % (21.0-51.0); MEAN CORPUSCULAR HEMOGLOBIN 32.1 pg (27.0-34.0); MEAN CORPUSCULAR HGB CONC 33.8 g/dL (33.0-35.0); MEAN CORPUSCULAR VOLUME 95.1 fL (80.0-100.0); MEAN PLATELET VOLUME 8.4 fL (7.4-11.0); MONOCYTES # (AUTO) 0.6 x10^3/uL (0.3-0.8); MONOCYTES % (AUTO) 9.3 % (0.0-13.0); NEUTROPHILS # (AUTO) 3.5 x10^3/uL (2.2-4.8); NEUTROPHILS % (AUTO) 51.4 % (42.0-75.0); PLATELET COUNT 178 X10^3/uL (150.0-450.0); RED BLOOD COUNT 2.99 X10^6/uL (4.7-6.0); RED CELL DISTRIBUTION WIDTH 14.2 % (11.6-16.5); WHITE BLOOD COUNT 6.9 X10^3/uL (3.6-10.0)
[2020-12-19] MEDS: DUONEB 0.5 MG/3 MG (3 mL) NEB SCH ×3 (05:22→20:56)
[2020-12-19 05:23] LABS: ALANINE AMINOTRANSFERASE 8 Units/L (12-78); ALBUMIN 2.7 g/dL (3.4-5.0); ALKALINE PHOSPHATASE 51 Units/L (46-116); ASPARTATE AMINO TRANSFERASE 7 Units/L (15-37); BLOOD UREA NITROGEN 12 mg/dL (7-18); CALCIUM 8.1 mg/dL (8.5-10.1); CARBON DIOXIDE 22.3 mmol/L (21-32); COR CA(FOR HYPOALB) 9.1 mg/dL (8.5-10.1); CREATININE 1.36 mg/dL (0.70-1.30); SODIUM 146 mmol/L (136-145); eGFR NON BLACK RACES 54 (>60)
[2020-12-19 05:48] LABS: CHLORIDE 115 mmol/L (98-107)
[2020-12-19] MEDS: COLACE CAP 100 MG PO SCH ×2 (09:57→20:44)
[2020-12-19] MEDS: ELIQUIS PO SCH ×2 (09:58→20:44)
[2020-12-19] MEDS: GEODON PO SCH ×2 (09:59→20:44)
[2020-12-19] MEDS: FLOMAX PO SCH (10:00)
[2020-12-19] MEDS: PROTONIX INJ 40 MG VIAL IVP SCH ×2 (10:04→20:45)
[2020-12-19] MEDS: MEGACE PO SCH ×2 (10:04→20:45)
[2020-12-19] MEDS ORDERED: NS 1/2 1000 ML IV 1,000 ML IV ONE (11:50)
[2020-12-19] MEDS: ZOSYN VIAL 3.375 GRAMS 3.375 G in NS 100 ML IV + SPIKE MINIBAG* 100 ML IV SCH ×3 (12:07→22:30)
[2020-12-19] MEDS: NS 1/2 1000 ML IV 1,000 ML IV SCH (12:07)
[2020-12-19] MEDS: DILAUDID INJ IVP PRN ×3 (12:08→20:30)
[2020-12-19] MEDS: PEPCID 20 MG IV PREMIX* 20 MG/50 ML BAG IV SCH (12:10)
--- NOTE | 2020-12-19 14:26 | RAD ---
CHEST, 1 VIEWHISTORY: COUGHStudy: Single view of the chest.Comparison:December 18, 2020Findings:The cardiomediastinal silhouette is normal. No change in the appearance of bilateral perihilar interstitial prominence. Hiatal hernia present. Osseous structures demonstrate no acute abnormality.IMPRESSION:1. No significant change from prior. Bilateral interstitial opacities are again present. Pulmonary vascular congestion or atypical infection certainly not excluded.Electronically signed by: ROSALES KEMP (Dec 19, 2020 14:24:45)
[2020-12-19] MEDS: XANAX PO PRN (15:54)
[2020-12-19] MEDS ORDERED: LASIX IVP ONE (18:51)
[2020-12-19 19:00] LABS: BILIRUBIN,URINE NEGATIVE (NEGATIVE); BLOOD/HEMOGLOBIN,URINE 5+ (NEGATIVE); GLUCOSE, URINE NEGATIVE (NEGATIVE); KETONES,URINE NEGATIVE (NEGATIVE); LEUKOCYTE ESTERASE ,URINE NEGATIVE (NEGATIVE); NITRITES,URINE NEGATIVE (NEGATIVE); PROTEIN,URINE 2+ (NEGATIVE); UROBILINOGEN,URINE NORMAL (NORMAL)
[2020-12-19] MEDS ORDERED: K-DUR TAB 20 MEQ PO SCH (19:00)
[2020-12-19 19:09] LABS: APPEARANCE,URINE HAZY (CLEAR); COLOR,URINE YELLOW (YELLOW)
[2020-12-19 19:10] LABS: BACTERIA,URINE TRACE /HPF (NEGATIVE); RBC,URINE TNTC /HPF (0-3); SQUAMOUS EPITHELIAL CELL,UR FEW /HPF (NEGATIVE); YEAST,URINE FEW /HPF (NEGATIVE)
[2020-12-19] MEDS: CIPRO IV 400 MG PREMIX* 400 MG/200 ML IV.SOLN. IV SCH ×2 (20:43→20:44)
[2020-12-19] MEDS: KLONOPIN TAB 0.5 MG PO SCH (20:45)
[2020-12-20] MEDS: XANAX PO PRN (00:10)
[2020-12-20] MEDS: DILAUDID INJ IVP PRN ×4 (00:32→21:51)
[2020-12-20] MEDS: NS 1/2 1000 ML IV 1,000 ML IV SCH ×2 (01:25→14:45)
[2020-12-20] MEDS: ZOSYN VIAL 3.375 GRAMS 3.375 G in NS 100 ML IV + SPIKE MINIBAG* 100 ML IV SCH ×3 (05:08→21:50)
[2020-12-20 05:21] LABS: BASOPHILS # (AUTO) 0.1 X10^3/uL (0.0-0.1); BASOPHILS % (AUTO) 0.5 % (0.2-1.0); EOSINOPHILS # (AUTO) 0.8 x10^3/uL (0.0-0.2); EOSINOPHILS % (AUTO) 6.3 % (0.9-2.9); HEMATOCRIT 32.7 % (42.0-54.0); HEMOGLOBIN 10.9 g/dL (13.5-18.0); LYMPHOCYTES # (AUTO) 2.1 X10^3/uL (1.3-2.9); LYMPHOCYTES % (AUTO) 17.2 % (21.0-51.0); MEAN CORPUSCULAR HEMOGLOBIN 31.7 pg (27.0-34.0); MEAN CORPUSCULAR HGB CONC 33.3 g/dL (33.0-35.0); MEAN CORPUSCULAR VOLUME 95.3 fL (80.0-100.0); MEAN PLATELET VOLUME 8.6 fL (7.4-11.0); MONOCYTES # (AUTO) 0.9 x10^3/uL (0.3-0.8); MONOCYTES % (AUTO) 7.5 % (0.0-13.0); NEUTROPHILS # (AUTO) 8.3 x10^3/uL (2.2-4.8); NEUTROPHILS % (AUTO) 68.5 % (42.0-75.0); PLATELET COUNT 196 X10^3/uL (150.0-450.0); RED BLOOD COUNT 3.43 X10^6/uL (4.7-6.0); RED CELL DISTRIBUTION WIDTH 14.5 % (11.6-16.5); WHITE BLOOD COUNT 12.1 X10^3/uL (3.6-10.0)
[2020-12-20] MEDS: DUONEB 0.5 MG/3 MG (3 mL) NEB SCH ×3 (05:22→20:50)
[2020-12-20 05:43] LABS: ALANINE AMINOTRANSFERASE 10 Units/L (12-78); ALBUMIN 3.1 g/dL (3.4-5.0); ALKALINE PHOSPHATASE 55 Units/L (46-116); ASPARTATE AMINO TRANSFERASE 10 Units/L (15-37); BLOOD UREA NITROGEN 14 mg/dL (7-18); CARBON DIOXIDE 22.8 mmol/L (21-32); CHLORIDE 113 mmol/L (98-107); COR CA(FOR HYPOALB) 8.7 mg/dL (8.5-10.1); CREATININE 1.75 mg/dL (0.70-1.30); SODIUM 147 mmol/L (136-145); TOTAL PROTEIN 5.8 g/dL (6.4-8.2); eGFR NON BLACK RACES 41 (>60)
[2020-12-20] MEDS: GEODON PO SCH ×2 (08:55→21:49)
[2020-12-20] MEDS: COLACE CAP 100 MG PO SCH ×2 (08:56→21:48)
[2020-12-20] MEDS: ELIQUIS PO SCH ×2 (08:56→21:48)
[2020-12-20] MEDS: FLOMAX PO SCH (08:56)
[2020-12-20] MEDS: PROTONIX INJ 40 MG VIAL IVP SCH ×2 (08:56→21:49)
[2020-12-20] MEDS: MEGACE PO SCH ×2 (08:56→21:49)
[2020-12-20] MEDS: PEPCID 20 MG IV PREMIX* 20 MG/50 ML BAG IV SCH (08:57)
[2020-12-20] MEDS: CIPRO IV 400 MG PREMIX* 400 MG/200 ML IV.SOLN. IV SCH ×2 (08:57→21:48)
[2020-12-20] MEDS: TESSALON PERLES PO SCH ×3 (11:56→21:50)
[2020-12-20 12:45] LABS: BILIRUBIN,URINE NEGATIVE (NEGATIVE); BLOOD/HEMOGLOBIN,URINE 4+ (NEGATIVE); GLUCOSE, URINE NEGATIVE (NEGATIVE); KETONES,URINE NEGATIVE (NEGATIVE); LEUKOCYTE ESTERASE ,URINE NEGATIVE (NEGATIVE); NITRITES,URINE NEGATIVE (NEGATIVE); PROTEIN,URINE NEGATIVE (NEGATIVE); UROBILINOGEN,URINE NORMAL (NORMAL)
[2020-12-20 12:48] LABS: APPEARANCE,URINE CLOUDY (CLEAR); COLOR,URINE YELLOW (YELLOW)
[2020-12-20 12:51] LABS: BACTERIA,URINE TRACE /HPF (NEGATIVE); RBC,URINE 20-30 /HPF (0-3); SQUAMOUS EPITHELIAL CELL,UR NEGATIVE /HPF (NEGATIVE); TRANSITIONAL EPI CELLS,URINE RARE /HPF (NEGATIVE)
[2020-12-20] MEDS ORDERED: NS 1/2 1000 ML IV 1,000 ML IV ONE (14:44)
--- NOTE | 2020-12-20 17:31 | PCM.PROG ---
Progress Note - Progress Note for Day of Date of Exam: 12/20/20 - Subjective Subjective: WAS ADMITTED FOR GASTROENTERITIS, ABDOMINAL PAIN, DEHYDRATION, FEVER, AND GENERALIZED WEAKNESS. TODAY, HE IS ALERT AND ORIENTED, LYING IN BED ON MORNING ROUNDS. HE CONTINUES WITH COMPLAINTS OF ABDOMINAL CRAMPING, LOWER BACK PAIN, AND GENERALIZED WEAKNESS. HE ALSO REPORTS A NON-PRODUCTIVE COUGH THIS MORNING. ON EXAMINATION, HEART IS REGULAR IN RATE AND RHYTHM. BILATERAL LUNGS ARE NOTED TO HAVE DIMINISHED LUNG SOUNDS THROUGHOUT. ABDOMEN IS FLAT, SOFT, AND NON-TENDER WITH HYPERACTIVE BOWEL SOUNDS NOTED IN ALL QUADRANTS. HIS VITALS THIS MORNING ARE: 98.7-100-18-4%-196/96. LABS WERE O BTAINED. ABNORMAL LAB VALUES INCLUDE THE FOLLOWING: WBC 12.1, RBC 3.43, HGB 10.9, HCT 32.7, SODIUM 147, POTASSIUM 3.4, CHLORIDE 113, CREATININE 1.75, GFR 41, CALCIUM 8.0, AST 10, ALT 10, TOTAL PROTEIN 5.8, ALBUMIN 3.1. URINE AND BLOOD CULTURES ARE PENDING. AN ABDOMEN/PELVIS CT WITHOUT CONTRAST WAS OBTAINED AND REVEALED: Probable enteritis changes. Possible mild right-sided colitis. Bilateral nonobstructing renal stones. Two low-density lesions in the left kidney have a changed appearance since prior study. These could be cysts but cannot be confirmed on this unenhanced exam. Multiple compression fractures are seen throughout the lower thoracic and lumbar spine, greatest at L4. These are mostly new since prior study but do not appear acute. A FACIAL BONES CT WITH CONTRAST WAS OBTAINED AND REVEALED: Possible preseptal orbital edema and edema in the forehead could be cellulitis or bland edema. No evidence of abscess is seen. HE IS CURRENTLY RECEIVING NORMAL SALINE AT 80 ML/HR, CIPRO 400MG IV Q12H, ZOSYN 3.375G IV TID, DUONEBS TID, PEPCID 20MG IV Q12H, PROTONIX 40GM IV BID, DILAUDID 2MG IV Q4H PRN, ELIQUIS 2.5MG PO BID, KLONOPIN 1MG PO HS, MEGACE 40MG PO BID, PHENERGAN 25MG PO Q6H PRN, FLOMAX 0.4MG PO DAILY, AND GEODON 20MG PO BID. TODAY, WE WILL ADD TESSALON PERLES 200MG PO TID AND JET NEBS Q6H. OTHERWISE, WE PLAN TO FOLLOW UP WITH AM LABS AND CONTINUE TO MONITOR. TIME SPENT ON CLINICAL ASSESSMENT, REVIEWING LABS AND IMAGING, DECISION MAKING, AND DOCUMENTATION GREATER THAN 45 MINUTES. - Past Medical Family Social History Past Med/Fam/Surg Hx: No changes since H&P Allergies: Allergies No Known Drug Allergies Allergy (Verified 11/13/20 11:00) - Review of Systems ROS: No change since H&P - Vital Signs and I&O's Vital Signs: Temperature 100.3 F Pulse Rate [Right] 98 Pulse Rate 91 Respiratory Rate 18 Blood Pressure [Right Arm] 128/76 Blood Pressure [Left Arm] 122/62 Blood Pressure [Right Arm] 120/72 Blood Pressure 136/72 O2 Sat by Pulse Oximetry 92 Intake and Output: Intake & Output 12/18/20 12/19/20 12/20/20 12/21/20 11:59 11:59 11:59 11:59 Intake Total 766 / 766 3622 / 3622 2325 / 2325 120 / 120 Output Total 1250 / 1250 Balance 766 / 766 3622 / 3622 2325 / 2325 -1130 / -1130 - Physical Exam Oriented: Normal Eyes: Normal Ear: Normal Nose: Normal Throat: Normal Respiratory: Generalized, Diminished Cardiovascular: Normal : Hematuria Auscultation: Bowel Sounds: Increased Tenderness: Suprapubic, Mild Skin: Decreased Turgur Musculoskeletal: Back:Lumbar, Tender Psychiatric: Normal Mood Description: Calm Affect: Normal Speech Pattern: Clear, Appropriate - Laboratory and Diagnostics Result Diagrams: 12/20/20 04:29 12/20/20 04:29 Labs: 12/17/20 21:43 Blood Blood Culture - Preliminary 12/17/20 21:39 Blood Blood Culture - Preliminary 12/18/20 02:00 Urine,Clean Catch Urine Culture - Final Laboratory WBC 12.1 X10^3/uL (3.6-10.0) H 12/20/20 04:29 RBC 3.43 X10^6/uL (4.7-6.0) L 12/20/20 04:29 Hgb 10.9 g/dL (13.5-18.0) L 12/20/20 04:29 Hct 32.7 % (42.0-54.0) L 12/20/20 04:29 MCV 95.3 fL (80.0-100.0) 12/20/20 04:29 MCH 31.7 pg (27.0-34.0) 12/20/20 04:29 MCHC 33.3 g/dL (33.0-35.0) 12/20/20 04:29 RDW 14.5 % (11.6-16.5) 12/20/20 04:29 Plt Count 196 X10^3/uL (150.0-450.0) 12/20/20 04:29 MPV 8.6 fL (7.4-11.0) 12/20/20 04:29 Neut % (Auto) 68.5 % (42.0-75.0) 12/20/20 04:29 Lymph % (Auto) 17.2 % (21.0-51.0) L 12/20/20 04:29 [place] % (Auto) 7.5 % (0.0-13.0) 12/20/20 04:29 Eos % (Auto) 6.3 % (0.9-2.9) H 12/20/20 04:29 Baso % (Auto) 0.5 % (0.2-1.0) 12/20/20 04:29 Neut # (Auto) 8.3 x10^3/uL (2.2-4.8) H 12/20/20 04:29 Lymph # (Auto) 2.1 X10^3/uL (1.3-2.9) 12/20/20 04:29 [place] # (Auto) 0.9 x10^3/uL (0.3-0.8) H 12/20/20 04:29 Eos # (Auto) 0.8 x10^3/uL (0.0-0.2) H 12/20/20 04:29 Baso # (Auto) 0.1 X10^3/uL (0.0-0.1) 12/20/20 04:29 Absolute Nucleated RBC 0.0 /100WBC 12/20/20 04:29 Sodium 147 mmol/L (136-145) H 12/20/20 04:29 Corrected Sodium TNP 12/20/20 04:29 Potassium 3.4 mmol/L (3.5-5.1) L 12/20/20 04:29 Chloride 113 mmol/L (98-107) H 12/20/20 04:29 Carbon Dioxide 22.8 mmol/L (21-32) 12/20/20 04:29 BUN 14 mg/dL (7-18) 12/20/20 04:29 Creatinine 1.75 mg/dL (0.70-1.30) H 12/20/20 04:29 Est GFR (MDRD) Af Amer 49 (>60) L 12/20/20 04:29 Est GFR (MDRD) Non-Af 41 (>60) L 12/20/20 04:29 Glucose 93 mg/dL (65-99) 12/20/20 04:29 Calcium 8.0 mg/dL (8.5-10.1) L 12/20/20 04:29 Corrected Calcium 8.7 mg/dL (8.5-10.1) 12/20/20 04:29 Magnesium 2.2 mg/dL (1.7-2.9) 12/18/20 20:57 Total Bilirubin 0.40 mg/dL (0.2-1.0) 12/20/20 04:29 AST 10 Units/L (15-37) L 12/20/20 04:29 ALT 10 Units/L (12-78) L 12/20/20 04:29 Alkaline Phosphatase 55 Units/L (46-116) 12/20/20 04:29 Creatine Kinase 47 Units/L (39-308) 12/17/20 21:43 CK-MB (CK-2) < 1.0 ng/mL (0-4.0) 12/17/20 21:43 CK/CKMB % Calc 2.1 % (<4) 12/17/20 21:43 Troponin I < 0.02 ng/mL (0-1.5) 12/17/20 21:43 Total Protein 5.8 g/dL (6.4-8.2) L 12/20/20 04:29 Albumin 3.1 g/dL (3.4-5.0) L 12/20/20 04:29 Globulin 2.7 g/dL (2.5-4.5) 12/20/20 04:29 Albumin/Globulin Ratio 1.1 Ratio (1.1-2.1) 12/20/20 04:29 Specimen Type Catherized urine 12/20/20 12:24 Urine Color Yellow (YELLOW) 12/20/20 12:24 Urine Appearance Cloudy (CLEAR) 12/20/20 12:24 Urine pH 5.0 (5.0 - 8.0) 12/20/20 12:24 Ur Specific [place] 1.010 (1.000-1.030) 12/20/20 12:24 Urine Protein Negative (NEGATIVE) 12/20/20 12:24 Urine Glucose (UA) Negative (NEGATIVE) 12/20/20 12:24 Urine Ketones Negative (NEGATIVE) 12/20/20 12:24 Urine Occult Blood 4+ (NEGATIVE) 12/20/20 12:24 Urine Nitrite Negative (NEGATIVE) 12/20/20 12:24 Urine Bilirubin Negative (NEGATIVE) 12/20/20 12:24 Urine Urobilinogen Normal (NORMAL) 12/20/20 12:24 Ur Leukocyte Esterase Negative (NEGATIVE) 12/20/20 12:24 Urine RBC 20-30 /HPF (0-3) A 12/20/20 12:24 Urine WBC 0-2 /HPF (0-5) 12/20/20 12:24 Ur Squamous Epith Cells Negative /HPF (NEGATIVE) 12/20/20 12:24 Ur Transition Epith Cell Rare /HPF (NEGATIVE) 12/20/20 12:24 Urine Bacteria Trace /HPF (NEGATIVE) 12/20/20 12:24 Urine Yeast Few /HPF (NEGATIVE) 12/19/20 17:06 Ur Culture Indicated? No/not indicated 12/20/20 12:24 SARS-CoV-2 (PCR) Negative (NEGATIVE) 12/17/20 20:00 Influenza Type A (PCR) Negative (NEGATIVE) 12/17/20 20:00 Influenza Type B (PCR) Negative (NEGATIVE) 12/17/20 20:00 RSV (PCR) Negative (NEGATIVE) 12/17/20 20:00 - Plan (1) Colitis Status: Acute Plan: NORMAL SALINE AT 80 ML/HR, CIPRO 400MG IV Q12H, ZOSYN 3.375G IV TID, DUONEBS TID, PEPCID 20MG IV Q12H, PROTONIX 40GM IV BID, DILAUDID 2MG IV Q4H PRN, ELIQUIS 2.5MG PO BID, KLONOPIN 1MG PO HS, MEGACE 40MG PO BID, PHENERGAN 25MG PO Q6H PRN, FLOMAX 0.4MG PO DAILY, AND GEODON 20MG PO BID. (2) Abdominal pain Status: Acute Qualifiers: Abdominal location: generalized Qualified Code(s): R10.84 - Generalized abdominal pain (3) Dehydration Status: Acute (4) Fever Status: Acute Qualifiers: Fever type: unspecified Qualified Code(s): R50.9 - Fever, unspecified (5) Generalized weakness Status: Acute
[2020-12-20] MEDS: KLONOPIN TAB 0.5 MG PO SCH (21:49)
[2020-12-21] MEDS ORDERED: TYLENOL SUPP 650 MG PR PRN (04:34)
[2020-12-21] MEDS: DUONEB 0.5 MG/3 MG (3 mL) NEB SCH ×4 (04:40→21:30)
[2020-12-21] MEDS ORDERED: TYLENOL SUPP 650 MG ONE (05:00)
[2020-12-21 05:02] LABS: BILIRUBIN,URINE NEGATIVE (NEGATIVE); BLOOD/HEMOGLOBIN,URINE 5+ (NEGATIVE); GLUCOSE, URINE NEGATIVE (NEGATIVE); KETONES,URINE 1+ (NEGATIVE); LEUKOCYTE ESTERASE ,URINE 1+ (NEGATIVE); NITRITES,URINE NEGATIVE (NEGATIVE); PROTEIN,URINE 3+ (NEGATIVE); UROBILINOGEN,URINE NORMAL (NORMAL)
[2020-12-21 05:23] LABS: APPEARANCE,URINE CLOUDY (CLEAR); COLOR,URINE BROWN (YELLOW)
[2020-12-21 05:24] LABS: AMORPHOUS SEDIMENT,UR 2+ /HPF (NEGATIVE); BACTERIA,URINE 1+ /HPF (NEGATIVE); RBC,URINE TNTC /HPF (0-3); SQUAMOUS EPITHELIAL CELL,UR NEGATIVE /HPF (NEGATIVE)
[2020-12-21] MEDS: TESSALON PERLES PO SCH ×4 (05:28→21:29)
[2020-12-21] MEDS: ZOSYN VIAL 3.375 GRAMS 3.375 G in NS 100 ML IV + SPIKE MINIBAG* 100 ML IV SCH ×3 (05:37→21:29)
[2020-12-21 05:43] LABS: BASOPHILS # (AUTO) 0.1 X10^3/uL (0.0-0.1); BASOPHILS % (AUTO) 0.5 % (0.2-1.0); EOSINOPHILS # (AUTO) 0.4 x10^3/uL (0.0-0.2); EOSINOPHILS % (AUTO) 4.1 % (0.9-2.9); HEMATOCRIT 35.7 % (42.0-54.0); HEMOGLOBIN 11.8 g/dL (13.5-18.0); LYMPHOCYTES # (AUTO) 0.8 X10^3/uL (1.3-2.9); LYMPHOCYTES % (AUTO) 7.7 % (21.0-51.0); MEAN CORPUSCULAR HEMOGLOBIN 31.8 pg (27.0-34.0); MEAN CORPUSCULAR VOLUME 96.3 fL (80.0-100.0); MONOCYTES # (AUTO) 0.9 x10^3/uL (0.3-0.8); MONOCYTES % (AUTO) 8.9 % (0.0-13.0); NEUTROPHILS # (AUTO) 8.2 x10^3/uL (2.2-4.8); NEUTROPHILS % (AUTO) 78.8 % (42.0-75.0); PLATELET COUNT 171 X10^3/uL (150.0-450.0); RED CELL DISTRIBUTION WIDTH 14.4 % (11.6-16.5); WHITE BLOOD COUNT 10.4 X10^3/uL (3.6-10.0)
[2020-12-21 06:06] LABS: ALANINE AMINOTRANSFERASE 15 Units/L (12-78); ALBUMIN 2.9 g/dL (3.4-5.0); ALKALINE PHOSPHATASE 56 Units/L (46-116); ASPARTATE AMINO TRANSFERASE 17 Units/L (15-37); BLOOD UREA NITROGEN 16 mg/dL (7-18); CALCIUM 8.3 mg/dL (8.5-10.1); CARBON DIOXIDE 21.3 mmol/L (21-32); CHLORIDE 113 mmol/L (98-107); COR CA(FOR HYPOALB) 9.2 mg/dL (8.5-10.1); CREATININE 1.69 mg/dL (0.70-1.30); SODIUM 146 mmol/L (136-145); TOTAL PROTEIN 5.9 g/dL (6.4-8.2); eGFR NON BLACK RACES 42 (>60)
--- NOTE | 2020-12-21 06:32 | RAD ---
HISTORYCough, congestionSTUDYChest AP portableCOMPARISONSeven hundred twenty-one 2020FINDINGSHeart size is normal. Aorta is prominent and mildly ectatic but unchanged from the prior examination. The josue are normal. Right hemidiaphragm remains elevated. The lungs appear free of acute infiltrates. No pleural effusions are identified. There is likely a hiatal hernia present. Bony thorax is unremarkable.IMPRESSIONNo acute infiltrates on today's examinationContinued elevation right hemidiaphragmHiatal herniaElectronically signed by: ABENA RAO (Dec 21, 2020 06:29:44)
[2020-12-21] MEDS: NS 1/2 1000 ML IV 1,000 ML IV SCH ×2 (07:37→16:38)
[2020-12-21] MEDS: CIPRO IV 400 MG PREMIX* 400 MG/200 ML IV.SOLN. IV SCH ×2 (09:19→21:26)
[2020-12-21] MEDS: PEPCID 20 MG IV PREMIX* 20 MG/50 ML BAG IV SCH (09:19)
[2020-12-21] MEDS: PROTONIX INJ 40 MG VIAL IVP SCH ×2 (09:20→21:28)
[2020-12-21] MEDS: SOLU-Medrol 40 MG VIAL IVP SCH ×5 (10:00→21:29)
[2020-12-21] MEDS: FLOMAX PO SCH (10:59)
[2020-12-21] MEDS: COLACE CAP 100 MG PO SCH ×3 (10:59→21:27)
[2020-12-21] MEDS: ELIQUIS PO SCH ×3 (10:59→21:27)
[2020-12-21] MEDS: GEODON PO SCH ×3 (10:59→21:28)
[2020-12-21] MEDS: MEGACE PO SCH ×3 (11:00→21:28)
--- NOTE | 2020-12-21 11:02 | PCM.PROG ---
Progress Note - Progress Note for Day of Date of Exam: 12/21/20 - Subjective Subjective: WAS ADMITTED FOR GASTROENTERITIS, SINUSITIS, ORBITAL CELLULITIS, DEHYDRATION, FEVER, AND GENERALIZED WEAKNESS. TODAY, HE IS LYING IN BED ON MORNING ROUNDS. HE IS DIFFICULT TO AROUSE THIS MORNING. STAFF REPORTS THAT HE HAD FEVER OF 101.2 THIS MORNING. HE HAS ALSO HAD A NON-PRODUCTIVE COUGH THIS MORNING AND THROUGHOUT THE NIGHT. HE IS CURRENTLY ON OXYGEN VIA NASAL CANNULA AT 3 LITERS/MINUTE. ON EXAMINATION, HEART IS REGULAR IN RATE AND RHYTHM. BILATERAL LUNGS ARE NOTED TO HAVE DIMINISHED LUNG SOUNDS THROUGHOUT. ABDOMEN IS FLAT, SOFT, AND NON-TENDER WITH HYPERACTIVE BOWEL SOUNDS NOTED IN ALL QUADRANTS. HIS VITALS THIS MORNING ARE: 99.2-100-40-92%NC-139/81. LABS WERE OBTAINED. [facility] LAB VALUES INCLUDE THE FOLLOWING: WBC 10.4, RBC 3.70, HGB 11.8, HCT 35.7, SODIUM 146, POTASSIUM 3.4, CHLORIDE 113, CREATININE 1.69, GLUCOSE 107, CALCIUM 8.3, CRP 120.50, TOTAL PROTEIN 5.9, ALBUMIN 2.9. URINE AND BLOOD CULTURES ARE PENDING. A CHEST XRAY WAS OBTAINED AND REVEALED: No acute infiltrates on today's examination. Continued elevation right hemidiaphragm. Hiatal hernia. HE IS CURRENTLY RECEIVING NORMAL SALINE AT 80 ML/HR, CIPRO 400MG IV Q12H, ZOSYN 3.375G IV TID, DUONEBS TID, TESSALON PERLES 200MG PO TID, JET NEBS Q6H. PEPCID 20MG IV Q12H, PROTONIX 40GM IV BID, DILAUDID 2MG IV Q4H PRN, ELIQUIS 2.5MG PO BID, KLONOPIN 1MG PO HS, MEGACE 40MG PO BID, PHENERGAN 25MG PO Q6H PRN, FLOMAX 0.4MG PO DAILY, AND GEODON 20MG PO BID. TODAY, WE WILL ADD SOLU MEDROL 40MG IV Q8H. WE WILL SWAB HIM AND SEND OFF FOR RESPIRATORY AIT PANEL. OTHERWISE, WE PLAN TO FOLLOW UP WITH AM LABS AND CONTINUE TO MONITOR. TIME SPENT ON CLINICAL ASSESSMENT, REVIEWING LABS AND IMAGING, DECISION MAKING, AND DOCUMENTATION GREATER THAN 45 MINUTES. - Past Medical Family Social History Past Med/Fam/Surg Hx: No changes since H&P Allergies: Allergies No Known Drug Allergies Allergy (Verified 11/13/20 11:00) - Review of Systems ROS: No change since H&P - Vital Signs and I&O's Vital Signs: Temperature 99.2 F Pulse Rate [Right] 108 Pulse Rate 110 Respiratory Rate 44 Blood Pressure [Right Arm] 137/76 Blood Pressure [Left Arm] 139/81 Blood Pressure [Right Arm] 120/72 Blood Pressure 136/72 O2 Sat by Pulse Oximetry 92 Intake and Output: Intake & Output 12/18/20 12/19/20 12/20/20 12/21/20 11:59 11:59 11:59 11:59 Intake Total 766 / 766 3622 / 3622 2325 / 2325 820 / 820 Output Total 1800 / 1800 Balance 766 / 766 3622 / 3622 2325 / 2325 -980 / -980 - Physical Exam Oriented: Normal Eyes: Normal Ear: Normal Nose: Normal Throat: Normal Respiratory: Generalized, Diminished Cardiovascular: Normal : Hematuria Auscultation: Bowel Sounds: Increased Palpation: Normal Tenderness: Suprapubic, Mild Skin: Decreased Turgur Musculoskeletal: Back:Lumbar, Tender Psychiatric: Normal Mood Description: Calm Affect: Normal Speech Pattern: Clear, Appropriate - Laboratory and Diagnostics Result Diagrams: 12/21/20 04:59 12/21/20 04:59 Labs: 12/17/20 21:43 Blood Blood Culture - Preliminary 12/17/20 21:39 Blood Blood Culture - Preliminary 12/18/20 02:00 Urine,Clean Catch Urine Culture - Final Laboratory WBC 10.4 X10^3/uL (3.6-10.0) H 12/21/20 04:59 RBC 3.70 X10^6/uL (4.7-6.0) L 12/21/20 04:59 Hgb 11.8 g/dL (13.5-18.0) L 12/21/20 04:59 Hct 35.7 % (42.0-54.0) L 12/21/20 04:59 MCV 96.3 fL (80.0-100.0) 12/21/20 04:59 MCH 31.8 pg (27.0-34.0) 12/21/20 04:59 MCHC 33.0 g/dL (33.0-35.0) 12/21/20 04:59 RDW 14.4 % (11.6-16.5) 12/21/20 04:59 Plt Count 171 X10^3/uL (150.0-450.0) 12/21/20 04:59 MPV 9.0 fL (7.4-11.0) 12/21/20 04:59 Neut % (Auto) 78.8 % (42.0-75.0) H 12/21/20 04:59 Lymph % (Auto) 7.7 % (21.0-51.0) L 12/21/20 04:59 [place] % (Auto) 8.9 % (0.0-13.0) 12/21/20 04:59 Eos % (Auto) 4.1 % (0.9-2.9) H 12/21/20 04:59 Baso % (Auto) 0.5 % (0.2-1.0) 12/21/20 04:59 Neut # (Auto) 8.2 x10^3/uL (2.2-4.8) H 12/21/20 04:59 Lymph # (Auto) 0.8 X10^3/uL (1.3-2.9) L 12/21/20 04:59 [place] # (Auto) 0.9 x10^3/uL (0.3-0.8) H 12/21/20 04:59 Eos # (Auto) 0.4 x10^3/uL (0.0-0.2) H 12/21/20 04:59 Baso # (Auto) 0.1 X10^3/uL (0.0-0.1) 12/21/20 04:59 Absolute Nucleated RBC 0.0 /100WBC 12/21/20 04:59 Sodium 146 mmol/L (136-145) H 12/21/20 04:59 Corrected Sodium TNP 12/21/20 04:59 Potassium 3.4 mmol/L (3.5-5.1) L 12/21/20 04:59 Chloride 113 mmol/L (98-107) H 12/21/20 04:59 Carbon Dioxide 21.3 mmol/L (21-32) 12/21/20 04:59 BUN 16 mg/dL (7-18) 12/21/20 04:59 Creatinine 1.69 mg/dL (0.70-1.30) H 12/21/20 04:59 Est GFR (MDRD) Af Amer 51 (>60) L 12/21/20 04:59 Est GFR (MDRD) Non-Af 42 (>60) L 12/21/20 04:59 Glucose 107 mg/dL (65-99) H 12/21/20 04:59 Calcium 8.3 mg/dL (8.5-10.1) L 12/21/20 04:59 Corrected Calcium 9.2 mg/dL (8.5-10.1) 12/21/20 04:59 Magnesium 2.2 mg/dL (1.7-2.9) 12/18/20 20:57 Total Bilirubin 0.80 mg/dL (0.2-1.0) 12/21/20 04:59 AST 17 Units/L (15-37) 12/21/20 04:59 ALT 15 Units/L (12-78) 12/21/20 04:59 Alkaline Phosphatase 56 Units/L (46-116) 12/21/20 04:59 Creatine Kinase 47 Units/L (39-308) 12/17/20 21:43 CK-MB (CK-2) < 1.0 ng/mL (0-4.0) 12/17/20 21:43 CK/CKMB % Calc 2.1 % (<4) 12/17/20 21:43 Troponin I < 0.02 ng/mL (0-1.5) 12/17/20 21:43 C-Reactive Protein 120.50 mg/L (0-3.0) H 12/21/20 04:59 B-Natriuretic Peptide 60.2 pg/mL (0-79) 12/21/20 04:59 Total Protein 5.9 g/dL (6.4-8.2) L 12/21/20 04:59 Albumin 2.9 g/dL (3.4-5.0) L 12/21/20 04:59 Globulin 3.0 g/dL (2.5-4.5) 12/21/20 04:59 Albumin/Globulin Ratio 1.0 Ratio (1.1-2.1) L 12/21/20 04:59 Specimen Type Catherized urine 12/21/20 04:35 Urine Color Brown (YELLOW) 12/21/20 04:35 Urine Appearance Cloudy (CLEAR) 12/21/20 04:35 Urine pH 5.0 (5.0 - 8.0) 12/21/20 04:35 Ur Specific [place] 1.025 (1.000-1.030) 12/21/20 04:35 Urine Protein 3+ (NEGATIVE) 12/21/20 04:35 Urine Glucose (UA) Negative (NEGATIVE) 12/21/20 04:35 Urine Ketones 1+ (NEGATIVE) 12/21/20 04:35 Urine Occult Blood 5+ (NEGATIVE) 12/21/20 04:35 Urine Nitrite Negative (NEGATIVE) 12/21/20 04:35 Urine Bilirubin Negative (NEGATIVE) 12/21/20 04:35 Urine Urobilinogen Normal (NORMAL) 12/21/20 04:35 Ur Leukocyte Esterase 1+ (NEGATIVE) 12/21/20 04:35 Urine RBC Tntc /HPF (0-3) A 12/21/20 04:35 Urine WBC 0-2 /HPF (0-5) 12/21/20 04:35 Ur Squamous Epith Cells Negative /HPF (NEGATIVE) 12/21/20 04:35 Ur Transition Epith Cell Rare /HPF (NEGATIVE) 12/20/20 12:24 Amorphous Sediment 2+ /HPF (NEGATIVE) 12/21/20 04:35 Urine Bacteria 1+ /HPF (NEGATIVE) 12/21/20 04:35 Urine Yeast Few /HPF (NEGATIVE) 12/19/20 17:06 Ur Culture Indicated? No/not indicated 12/21/20 04:35 SARS-CoV-2 (PCR) Negative (NEGATIVE) 12/17/20 20:00 Influenza Type A (PCR) Negative (NEGATIVE) 12/17/20 20:00 Influenza Type B (PCR) Negative (NEGATIVE) 12/17/20 20:00 RSV (PCR) Negative (NEGATIVE) 12/17/20 20:00 - Plan (1) Colitis Status: Acute Plan: NORMAL SALINE AT 80 ML/HR, CIPRO 400MG IV Q12H, ZOSYN 3.375G IV TID, DUONEBS TID, PULMICORT NEBS, TESSALON PERLES, SOLU-MEDROL 40MG IV Q8H, PEPCID 20MG IV Q12H, PROTONIX 40GM IV BID, DILAUDID 2MG IV Q4H PRN, ELIQUIS 2.5MG PO BID, KLONOPIN 1MG PO HS, MEGACE 40MG PO BID, PHENERGAN 25MG PO Q6H PRN, FLOMAX 0.4MG PO DAILY, AND GEODON 20MG PO BID. (2) Abdominal pain Status: Acute Qualifiers: Abdominal location: generalized Qualified Code(s): R10.84 - Generalized abdominal pain (3) Dehydration Status: Acute (4) Fever Status: Acute Qualifiers: Fever type: unspecified Qualified Code(s): R50.9 - Fever, unspecified (5) Generalized weakness Status: Acute
[2020-12-21] MEDS: KLONOPIN TAB 0.5 MG PO SCH (21:28)
[2020-12-22] MEDS: NS 1/2 1000 ML IV 1,000 ML IV SCH (05:50)
[2020-12-22] MEDS: SOLU-Medrol 40 MG VIAL IVP SCH ×3 (05:51→22:00)
[2020-12-22] MEDS: TESSALON PERLES PO SCH ×4 (05:52→21:39)
[2020-12-22] MEDS: ZOSYN VIAL 3.375 GRAMS 3.375 G in NS 100 ML IV + SPIKE MINIBAG* 100 ML IV SCH ×3 (05:58→22:10)
[2020-12-22] MEDS: DUONEB 0.5 MG/3 MG (3 mL) NEB SCH ×3 (06:11→21:00)
[2020-12-22 07:51] LABS: BASOPHILS % (AUTO) 0.2 % (0.2-1.0); EOSINOPHILS % (AUTO) 0.1 % (0.9-2.9); HEMATOCRIT 33.4 % (42.0-54.0); LYMPHOCYTES # (AUTO) 0.7 X10^3/uL (1.3-2.9); LYMPHOCYTES % (AUTO) 7.9 % (21.0-51.0); MEAN CORPUSCULAR HEMOGLOBIN 31.8 pg (27.0-34.0); MEAN CORPUSCULAR VOLUME 96.4 fL (80.0-100.0); MEAN PLATELET VOLUME 8.5 fL (7.4-11.0); MONOCYTES # (AUTO) 0.3 x10^3/uL (0.3-0.8); MONOCYTES % (AUTO) 3.8 % (0.0-13.0); NEUTROPHILS # (AUTO) 7.3 x10^3/uL (2.2-4.8); PLATELET COUNT 206 X10^3/uL (150.0-450.0); RED BLOOD COUNT 3.47 X10^6/uL (4.7-6.0); RED CELL DISTRIBUTION WIDTH 14.3 % (11.6-16.5); WHITE BLOOD COUNT 8.2 X10^3/uL (3.6-10.0)
[2020-12-22 08:00] LABS: ALBUMIN 2.7 g/dL (3.4-5.0); CALCIUM 8.2 mg/dL (8.5-10.1); CARBON DIOXIDE 20.2 mmol/L (21-32); COR CA(FOR HYPOALB) 9.2 mg/dL (8.5-10.1); CREATININE 1.47 mg/dL (0.70-1.30); TOTAL PROTEIN 5.8 g/dL (6.4-8.2)
[2020-12-22] MEDS: GEODON PO SCH ×2 (09:04→20:44)
[2020-12-22] MEDS: COLACE CAP 100 MG PO SCH ×2 (09:05→20:47)
[2020-12-22] MEDS: FLOMAX PO SCH (09:06)
[2020-12-22] MEDS: ELIQUIS PO SCH ×2 (09:06→20:46)
[2020-12-22] MEDS: MEGACE PO SCH ×2 (09:06→20:44)
[2020-12-22] MEDS: PEPCID 20 MG IV PREMIX* 20 MG/50 ML BAG IV SCH (09:07)
[2020-12-22] MEDS: PROTONIX INJ 40 MG VIAL IVP SCH (09:07)
[2020-12-22] MEDS: CIPRO IV 400 MG PREMIX* 400 MG/200 ML IV.SOLN. IV SCH ×2 (09:07→20:40)
[2020-12-22] MEDS: DILAUDID INJ IVP PRN ×2 (09:54→14:41)
[2020-12-22 10:27] LABS: CRYPTOSPORIDIUM PARVUM ANTIGEN NEGATIVE (NEGATIVE); GIARDIA LAMBLIA ANTIGEN NEGATIVE (NEGATIVE)
[2020-12-22] MEDS: XANAX PO PRN (14:42)
[2020-12-22] MEDS ORDERED: NS 1/2 1000 ML IV 1,000 ML IV ONE (20:23)
[2020-12-22] MEDS: KLONOPIN TAB 0.5 MG PO SCH (20:42)
[2020-12-22] MEDS: PROTONIX TAB 40 MG PO SCH (20:48)
[2020-12-23] MEDS: XANAX PO PRN (01:28)
[2020-12-23] MEDS: NS 1/2 1000 ML IV 1,000 ML IV SCH ×2 (05:00→09:42)
[2020-12-23] MEDS: DUONEB 0.5 MG/3 MG (3 mL) NEB SCH ×3 (05:15→21:13)
[2020-12-23] MEDS: SOLU-Medrol 40 MG VIAL IVP SCH ×3 (05:30→21:39)
[2020-12-23] MEDS: ZOSYN VIAL 3.375 GRAMS 3.375 G in NS 100 ML IV + SPIKE MINIBAG* 100 ML IV SCH ×3 (05:32→22:25)
[2020-12-23] MEDS: TESSALON PERLES PO SCH ×4 (05:34→21:39)
[2020-12-23] MEDS: CIPRO IV 400 MG PREMIX* 400 MG/200 ML IV.SOLN. IV SCH ×2 (09:12→20:49)
[2020-12-23] MEDS: COLACE CAP 100 MG PO SCH ×2 (09:38→20:52)
[2020-12-23] MEDS: FLOMAX PO SCH (09:38)
[2020-12-23] MEDS: GEODON PO SCH ×2 (09:38→20:51)
[2020-12-23] MEDS: PROTONIX TAB 40 MG PO SCH ×2 (09:39→20:52)
[2020-12-23] MEDS: MEGACE PO SCH ×2 (09:39→20:51)
[2020-12-23] MEDS: ELIQUIS PO SCH ×2 (09:39→20:52)
[2020-12-23] MEDS: DILAUDID INJ IVP PRN ×2 (10:55→17:34)
[2020-12-23] MEDS: PEPCID 20 MG IV PREMIX* 20 MG/50 ML BAG IV SCH (10:55)
[2020-12-23 14:49] LABS: BASOPHILS % (AUTO) 0.1 % (0.2-1.0); HEMOGLOBIN 10.8 g/dL (13.5-18.0); LYMPHOCYTES # (AUTO) 0.9 X10^3/uL (1.3-2.9); LYMPHOCYTES % (AUTO) 10.8 % (21.0-51.0); MEAN CORPUSCULAR HGB CONC 33.8 g/dL (33.0-35.0); MEAN CORPUSCULAR VOLUME 94.8 fL (80.0-100.0); MONOCYTES # (AUTO) 0.8 x10^3/uL (0.3-0.8); MONOCYTES % (AUTO) 9.3 % (0.0-13.0); NEUTROPHILS # (AUTO) 6.7 x10^3/uL (2.2-4.8); NEUTROPHILS % (AUTO) 79.8 % (42.0-75.0); PLATELET COUNT 258 X10^3/uL (150.0-450.0); RED BLOOD COUNT 3.38 X10^6/uL (4.7-6.0); RED CELL DISTRIBUTION WIDTH 14.6 % (11.6-16.5); WHITE BLOOD COUNT 8.4 X10^3/uL (3.6-10.0)
[2020-12-23 14:58] LABS: ALBUMIN 2.7 g/dL (3.4-5.0); CALCIUM 8.2 mg/dL (8.5-10.1); COR CA(FOR HYPOALB) 9.2 mg/dL (8.5-10.1); CREATININE 1.52 mg/dL (0.70-1.30); TOTAL PROTEIN 5.7 g/dL (6.4-8.2)
--- NOTE | 2020-12-23 15:14 | RAD ---
HISTORYSOBSTUDYCHEST, 1 VIEWCOMPARISONJuly 2020 at 4:23 a.m.TECHNIQUEChest radiographic imaging, AP portable projection, 1 imageFINDINGSMild cardiomegaly.Elevation of the right diaphragm.Hiatal hernia.No focal airspace disease.No pleural effusion.No pneumothorax.No acute osseous abnormality.Fusion hardware in the mid-lower cervical spineIMPRESSIONNo significant interval acute cardiopulmonary changes.Electronically signed by: Sedrick Madsen (Dec 23, 2020 15:12:49)
[2020-12-23] MEDS: KLONOPIN TAB 0.5 MG PO SCH (20:52)
[2020-12-23] MEDS: RESTORIL CAP 15 MG PO PRN (22:37)
[2020-12-24 05:09] LABS: BASOPHILS % (AUTO) 0 % (0.2-1.0); HEMATOCRIT 32.7 % (42.0-54.0); HEMOGLOBIN 10.9 g/dL (13.5-18.0); LYMPHOCYTES # (AUTO) 0.8 X10^3/uL (1.3-2.9); MEAN CORPUSCULAR HEMOGLOBIN 31.8 pg (27.0-34.0); MEAN CORPUSCULAR HGB CONC 33.4 g/dL (33.0-35.0); MEAN CORPUSCULAR VOLUME 95.3 fL (80.0-100.0); MEAN PLATELET VOLUME 8.3 fL (7.4-11.0); MONOCYTES # (AUTO) 0.3 x10^3/uL (0.3-0.8); MONOCYTES % (AUTO) 4.7 % (0.0-13.0); NEUTROPHILS # (AUTO) 6.2 x10^3/uL (2.2-4.8); NEUTROPHILS % (AUTO) 84.3 % (42.0-75.0); PLATELET COUNT 280 X10^3/uL (150.0-450.0); RED BLOOD COUNT 3.44 X10^6/uL (4.7-6.0); RED CELL DISTRIBUTION WIDTH 14.8 % (11.6-16.5); WHITE BLOOD COUNT 7.3 X10^3/uL (3.6-10.0)
[2020-12-24 05:24] LABS: ALBUMIN 2.8 g/dL (3.4-5.0); CALCIUM 8.2 mg/dL (8.5-10.1); CARBON DIOXIDE 22.1 mmol/L (21-32); COR CA(FOR HYPOALB) 9.2 mg/dL (8.5-10.1); CREATININE 1.55 mg/dL (0.70-1.30)
[2020-12-24] MEDS: SOLU-Medrol 40 MG VIAL IVP SCH ×3 (05:40→22:00)
[2020-12-24] MEDS: ZOSYN VIAL 3.375 GRAMS 3.375 G in NS 100 ML IV + SPIKE MINIBAG* 100 ML IV SCH ×3 (05:42→22:00)
[2020-12-24] MEDS: TESSALON PERLES PO SCH ×4 (05:44→22:01)
[2020-12-24] MEDS: DUONEB 0.5 MG/3 MG (3 mL) NEB SCH ×3 (05:46→21:24)
[2020-12-24] MEDS: MEGACE PO SCH ×2 (08:40→21:00)
[2020-12-24] MEDS: COLACE CAP 100 MG PO SCH ×2 (08:40→22:00)
[2020-12-24] MEDS: PROTONIX TAB 40 MG PO SCH ×2 (08:41→21:00)
[2020-12-24] MEDS: GEODON PO SCH ×2 (08:42→21:00)
[2020-12-24] MEDS: ELIQUIS PO SCH ×2 (08:42→21:00)
[2020-12-24] MEDS: FLOMAX PO SCH (08:43)
[2020-12-24] MEDS: CIPRO IV 400 MG PREMIX* 400 MG/200 ML IV.SOLN. IV SCH ×2 (08:44→22:00)
--- NOTE | 2020-12-24 10:48 | PCM.PROG ---
Progress Note - Progress Note for Day of Date of Exam: 12/24/20 - Subjective Subjective: WAS ADMITTED FOR GASTROENTERITIS, SINUSITIS, ORBITAL CELLULITIS, DEHYDRATION, FEVER, AND GENERALIZED WEAKNESS. TODAY, HE IS ALERT, LYING IN BED ON MORNING ROUNDS. STAFF REPORTS THAT HE CONTINUES WITH CONFUSION AND AGITATION AT TIMES. HE CONTINUES WITH A NON-PRODUCTIVE COUGH. HE IS CURR ENTLY ON OXYGEN VIA NASAL CANNULA AT 3 LITERS/MINUTE. ON EXAMINATION, HEART IS REGULAR IN RATE AND RHYTHM. BILATERAL LUNGS ARE NOTED TO HAVE DIMINISHED LUNG SOUNDS THROUGHOUT. ABDOMEN IS FLAT, SOFT, AND NON-TENDER WITH HYPERACTIVE BOWEL SOUNDS NOTED IN ALL QUADRANTS. HIS VITALS THIS MORNING ARE: 99. 1-77-18-91%NC-119/68. LABS WERE OBTAINED. ABNORMAL LAB VALUES INCLUDE THE FOLLOWING: RBC 3.44, HGB 10.9, HCT 32.7, SODIUM 148, CHLORIDE 115, BUN 20, CREATININE 1.55, GLUCOSE 115, CALCIUM 8.2, AST 14, ALK PHOS 41, CRP 33.60, TOTAL PROTEIN 6.0, ALBUMIN 2.8. BLOOD AND STOOL CULTURES ARE PENDING. A CHEST XRAY WAS OBTAINED AND REVEALED: No significant interval acute cardiopulmonary changes. HE IS CURRENTLY RECEIVING NORMAL SALINE AT 80 ML/HR, CIPRO 400MG IV Q12H, ZOSYN 3.375G IV TID, DUONEBS TID, TESSALON PERLES 200MG PO TID, JET NEBS Q6H, PEPCID 20MG IV Q12H, PROTONIX 40GM IV BID, DILAUDID 2MG IV Q4H PRN, ELIQUIS 2.5MG PO BID, KLONOPIN 1MG PO HS, MEGACE 40MG PO BID, PHENERGAN 25MG PO Q6H PRN, PROTONIX 40MG IV BID, SOLU-MEDROL 40MG IV Q8H, ALPRAZOLAM 0.5MG TID PRN. FLOMAX 0.4MG PO DAILY, AND GEODON 20MG PO BID. TODAY, WE WILL MAKE HIS ALPRAZOLAM TID SCHEDULED. OTHERWISE, WE WILL CONTINUE WITH CURRENT PLAN OF CARE. WE PLAN TO FOLLOW UP WITH AM LABS AND CONTINUE TO MONITOR. TIME SPENT ON CLINICAL ASSESSMENT, REVIEWING LABS AND IMAGING, DECISION MAKING, AND DOCUMENTATION GREATER THAN 45 MINUTES. - Past Medical Family Social History Past Med/Fam/Surg Hx: No changes since H&P Allergies: Allergies No Known Drug Allergies Allergy (Verified 11/13/20 11:00) - Review of Systems ROS: No change since H&P - Vital Signs and I&O's Vital Signs: Temperature 99.1 F Pulse Rate [Right] 77 Pulse Rate 67 Respiratory Rate 18 Blood Pressure [Right Arm] 120/61 Blood Pressure [Left Arm] 119/68 Blood Pressure [Right Arm] 120/72 Blood Pressure 136/72 O2 Sat by Pulse Oximetry 91 Intake and Output: Intake & Output 12/21/20 12/22/20 12/23/20 12/24/20 11:59 11:59 11:59 11:59 Intake Total 820 / 820 450 / 450 2663 / 2663 2100 / 2100 Output Total 1800 / 1800 630 / 630 950 / 950 550 / 550 Balance -980 / -980 -180 / -180 1713 / 1713 1550 / 1550 - Physical Exam Oriented: Normal Eyes: Normal Ear: Normal Nose: Normal Throat: Normal Respiratory: Generalized, Diminished Cardiovascular: Normal : Hematuria Auscultation: Bowel Sounds: Increased Palpation: Normal Tenderness: Suprapubic, Mild Skin: Decreased Turgur Musculoskeletal: Back:Lumbar, Tender Psychiatric: Normal Mood Description: Calm Affect: Normal Speech Pattern: Clear, Appropriate - Laboratory and Diagnostics Result Diagrams: 12/24/20 04:00 12/24/20 04:00 Labs: 12/22/20 08:00 Stool Stool Culture - Preliminary 12/22/20 08:00 Stool - Final 12/17/20 21:39 Blood Blood Culture - Final 12/17/20 21:43 Blood Blood Culture - Final 12/21/20 04:57 Blood Blood Culture - Preliminary 12/21/20 04:59 Blood Blood Culture - Preliminary 12/18/20 02:00 Urine,Clean Catch Urine Culture - Final Laboratory WBC 7.3 X10^3/uL (3.6-10.0) 12/24/20 04:00 RBC 3.44 X10^6/uL (4.7-6.0) L 12/24/20 04:00 Hgb 10.9 g/dL (13.5-18.0) L 12/24/20 04:00 Hct 32.7 % (42.0-54.0) L 12/24/20 04:00 MCV 95.3 fL (80.0-100.0) 12/24/20 04:00 MCH 31.8 pg (27.0-34.0) 12/24/20 04:00 MCHC 33.4 g/dL (33.0-35.0) 12/24/20 04:00 RDW 14.8 % (11.6-16.5) 12/24/20 04:00 Plt Count 280 X10^3/uL (150.0-450.0) 12/24/20 04:00 MPV 8.3 fL (7.4-11.0) 12/24/20 04:00 Neut % (Auto) 84.3 % (42.0-75.0) H 12/24/20 04:00 Lymph % (Auto) 11.0 % (21.0-51.0) L 12/24/20 04:00 [place] % (Auto) 4.7 % (0.0-13.0) 12/24/20 04:00 Eos % (Auto) 0.0 % (0.9-2.9) L 12/24/20 04:00 Baso % (Auto) 0 % (0.2-1.0) L 12/24/20 04:00 Neut # (Auto) 6.2 x10^3/uL (2.2-4.8) H 12/24/20 04:00 Lymph # (Auto) 0.8 X10^3/uL (1.3-2.9) L 12/24/20 04:00 [place] # (Auto) 0.3 x10^3/uL (0.3-0.8) 12/24/20 04:00 Eos # (Auto) 0.0 x10^3/uL (0.0-0.2) 12/24/20 04:00 Baso # (Auto) 0.0 X10^3/uL (0.0-0.1) 12/24/20 04:00 Absolute Nucleated RBC 0.0 /100WBC 12/24/20 04:00 Sodium 148 mmol/L (136-145) H 12/24/20 04:00 Corrected Sodium 148 mmol/L (136-145) H 12/24/20 04:00 Potassium 3.5 mmol/L (3.5-5.1) 12/24/20 04:00 Chloride 115 mmol/L (98-107) H* 12/24/20 04:00 Carbon Dioxide 22.1 mmol/L (21-32) 12/24/20 04:00 BUN 20 mg/dL (7-18) H 12/24/20 04:00 Creatinine 1.55 mg/dL (0.70-1.30) H 12/24/20 04:00 Est GFR (MDRD) Af Amer 57 (>60) L 12/24/20 04:00 Est GFR (MDRD) Non-Af 47 (>60) L 12/24/20 04:00 Glucose 115 mg/dL (65-99) H 12/24/20 04:00 Calcium 8.2 mg/dL (8.5-10.1) L 12/24/20 04:00 Corrected Calcium 9.2 mg/dL (8.5-10.1) 12/24/20 04:00 Magnesium 2.2 mg/dL (1.7-2.9) 12/18/20 20:57 Total Bilirubin 0.30 mg/dL (0.2-1.0) 12/24/20 04:00 AST 14 Units/L (15-37) L 12/24/20 04:00 ALT 14 Units/L (12-78) 12/24/20 04:00 Alkaline Phosphatase 41 Units/L (46-116) L 12/24/20 04:00 Creatine Kinase 47 Units/L (39-308) 12/17/20 21:43 CK-MB (CK-2) < 1.0 ng/mL (0-4.0) 12/17/20 21:43 CK/CKMB % Calc 2.1 % (<4) 12/17/20 21:43 Troponin I < 0.02 ng/mL (0-1.5) 12/17/20 21:43 C-Reactive Protein 33.60 mg/L (0-3.0) H 12/24/20 04:00 B-Natriuretic Peptide 65.9 pg/mL (0-79) 12/22/20 07:40 Total Protein 6.0 g/dL (6.4-8.2) L 12/24/20 04:00 Albumin 2.8 g/dL (3.4-5.0) L 12/24/20 04:00 Globulin 3.2 g/dL (2.5-4.5) 12/24/20 04:00 Albumin/Globulin Ratio 0.9 Ratio (1.1-2.1) L 12/24/20 04:00 Specimen Type Catherized urine 12/21/20 04:35 Urine Color Brown (YELLOW) 12/21/20 04:35 Urine Appearance Cloudy (CLEAR) 12/21/20 04:35 Urine pH 5.0 (5.0 - 8.0) 12/21/20 04:35 Ur Specific [place] 1.025 (1.000-1.030) 12/21/20 04:35 Urine Protein 3+ (NEGATIVE) 12/21/20 04:35 Urine Glucose (UA) Negative (NEGATIVE) 12/21/20 04:35 Urine Ketones 1+ (NEGATIVE) 12/21/20 04:35 Urine Occult Blood 5+ (NEGATIVE) 12/21/20 04:35 Urine Nitrite Negative (NEGATIVE) 12/21/20 04:35 Urine Bilirubin Negative (NEGATIVE) 12/21/20 04:35 Urine Urobilinogen Normal (NORMAL) 12/21/20 04:35 Ur Leukocyte Esterase 1+ (NEGATIVE) 12/21/20 04:35 Urine RBC Tntc /HPF (0-3) A 12/21/20 04:35 Urine WBC 0-2 /HPF (0-5) 12/21/20 04:35 Ur Squamous Epith Cells Negative /HPF (NEGATIVE) 12/21/20 04:35 Ur Transition Epith Cell Rare /HPF (NEGATIVE) 12/20/20 12:24 Amorphous Sediment 2+ /HPF (NEGATIVE) 12/21/20 04:35 Urine Bacteria 1+ /HPF (NEGATIVE) 12/21/20 04:35 Urine Yeast Few /HPF (NEGATIVE) 12/19/20 17:06 Ur Culture Indicated? No/not indicated 12/21/20 04:35 Stool Description 50 cc brown loose 12/22/20 08:00 Stool Description 50 cc of brown loose 12/22/20 08:00 Stl Occult Blood (IFOB) Negative (NEGATIVE) 12/22/20 08:00 Stool for White Cells Positive (NEGATIVE) A 12/22/20 08:00 Stl C. diff Tox B Gene Negative (NEGATIVE) 12/22/20 08:00 Stl C. diff [id number] Presumptive negative (NEGATIVE) 12/22/20 08:00 Stool H. pylori Ag Negative (NEGATIVE) 12/22/20 08:00 SARS-CoV-2 (PCR) Negative (NEGATIVE) 12/17/20 20:00 Cryptosporid parvum Ag Negative (NEGATIVE) 12/22/20 08:00 Giardia lamblia Ag Negative (NEGATIVE) 12/22/20 08:00 Influenza Type A (PCR) Negative (NEGATIVE) 12/17/20 20:00 Influenza Type B (PCR) Negative (NEGATIVE) 12/17/20 20:00 RSV (PCR) Negative (NEGATIVE) 12/17/20 20:00 - Plan (1) Colitis Status: Acute Plan: NORMAL SALINE AT 80 ML/HR, CIPRO 400MG IV Q12H, ZOSYN 3.375G IV TID, DUONEBS TID, TESSALON PERLES 200MG PO TID, JET NEBS Q6H, PEPCID 20MG IV Q12H, PROTONIX 40GM IV BID, DILAUDID 2MG IV Q4H PRN, ELIQUIS 2.5MG PO BID, KLONOPIN 1MG PO HS, MEGACE 40MG PO BID, PHENERGAN 25MG PO Q6H PRN, PROTONIX 40MG IV BID, SOLU-MEDROL 40MG IV Q8H, ALPRAZOLAM 0.5MG TID, FLOMAX 0.4MG PO DAILY, AND GEODON 20MG PO BID (2) Abdominal pain Status: Acute Qualifiers: Abdominal location: generalized Qualified Code(s): R10.84 - Generalized abdominal pain (3) Dehydration Status: Acute (4) Fever Status: Acute Qualifiers: Fever type: unspecified Qualified Code(s): R50.9 - Fever, unspecified (5) Generalized weakness Status: Acute
[2020-12-24] MEDS: PEPCID 20 MG IV PREMIX* 20 MG/50 ML BAG IV SCH (11:00)
[2020-12-24] MEDS: XANAX PO SCH ×3 (14:12→22:00)
[2020-12-24] MEDS: NS 1/2 1000 ML IV 1,000 ML IV SCH (14:55)
[2020-12-24] MEDS: DILAUDID INJ IVP PRN (17:24)
[2020-12-24] MEDS: KLONOPIN TAB 0.5 MG PO SCH (21:00)
[2020-12-24] MEDS: RESTORIL CAP 15 MG PO PRN (23:00)
[2020-12-25] MEDS: DUONEB 0.5 MG/3 MG (3 mL) NEB SCH (06:00)
[2020-12-25 06:14] LABS: BASOPHILS % (AUTO) 0.1 % (0.2-1.0); HEMATOCRIT 32.3 % (42.0-54.0); HEMOGLOBIN 10.8 g/dL (13.5-18.0); LYMPHOCYTES # (AUTO) 0.8 X10^3/uL (1.3-2.9); LYMPHOCYTES % (AUTO) 11.4 % (21.0-51.0); MEAN CORPUSCULAR HEMOGLOBIN 32.2 pg (27.0-34.0); MEAN CORPUSCULAR HGB CONC 33.6 g/dL (33.0-35.0); MEAN CORPUSCULAR VOLUME 95.8 fL (80.0-100.0); MONOCYTES # (AUTO) 0.4 x10^3/uL (0.3-0.8); MONOCYTES % (AUTO) 5.6 % (0.0-13.0); NEUTROPHILS # (AUTO) 5.8 x10^3/uL (2.2-4.8); NEUTROPHILS % (AUTO) 82.9 % (42.0-75.0); PLATELET COUNT 273 X10^3/uL (150.0-450.0); RED BLOOD COUNT 3.37 X10^6/uL (4.7-6.0); RED CELL DISTRIBUTION WIDTH 14.4 % (11.6-16.5)
[2020-12-25 06:42] LABS: PLATELET MORPHOLOGY COMMENT NORMAL (NORMAL)
[2020-12-25 06:47] LABS: ALANINE AMINOTRANSFERASE 15 Units/L (12-78); ALBUMIN 2.7 g/dL (3.4-5.0); ALKALINE PHOSPHATASE 38 Units/L (46-116); ASPARTATE AMINO TRANSFERASE 18 Units/L (15-37); BLOOD UREA NITROGEN 19 mg/dL (7-18); CALCIUM 8.3 mg/dL (8.5-10.1); CARBON DIOXIDE 22.2 mmol/L (21-32); CHLORIDE 114 mmol/L (98-107); COR CA(FOR HYPOALB) 9.3 mg/dL (8.5-10.1); COR NA(FOR HYPERGLY) 147 mmol/L (136-145); CREATININE 1.46 mg/dL (0.70-1.30); SODIUM 146 mmol/L (136-145); TOTAL PROTEIN 5.6 g/dL (6.4-8.2); eGFR NON BLACK RACES 50 (>60)
[2020-12-25] MEDS: SOLU-Medrol 40 MG VIAL IVP SCH ×2 (07:17→14:00)
[2020-12-25] MEDS: ZOSYN VIAL 3.375 GRAMS 3.375 G in NS 100 ML IV + SPIKE MINIBAG* 100 ML IV SCH ×2 (07:18→14:00)
[2020-12-25] MEDS: XANAX PO SCH ×2 (07:18→14:00)
[2020-12-25] MEDS: TESSALON PERLES PO SCH ×2 (07:18→14:00)
[2020-12-25] MEDS: CIPRO IV 400 MG PREMIX* 400 MG/200 ML IV.SOLN. IV SCH (09:25)
[2020-12-25] MEDS: COLACE CAP 100 MG PO SCH (09:31)
[2020-12-25] MEDS: ELIQUIS PO SCH (09:31)
[2020-12-25] MEDS: FLOMAX PO SCH (09:32)
[2020-12-25] MEDS: MEGACE PO SCH (09:33)
[2020-12-25] MEDS: PEPCID 20 MG IV PREMIX* 20 MG/50 ML BAG IV SCH (09:33)
[2020-12-25] MEDS: PROTONIX TAB 40 MG PO SCH (09:33)
[2020-12-25] MEDS: GEODON PO SCH (09:33)
[2020-12-25] MEDS: DILAUDID INJ IVP PRN ×2 (09:40→15:00)
[2020-12-25] MEDS ORDERED: MUCOMYST (RESPIRATORY USE ONLY) NEB SCH (10:15)
[2020-12-25] MEDS: NS 1/2 1000 ML IV 1,000 ML IV SCH ×2 (10:38→14:00)
[2020-12-25] MEDS: ROBITUSSIN CF SYRUP PO SCH ×2 (10:53→13:59)
[2020-12-25 12:02] VITALS: BP 144/81
[2020-12-25] MEDS ORDERED: NS 1/2 1000 ML IV 1,000 ML IV ONE (13:49)
== END 2020-12-25 15:02 | disposition home health service (06) | DRG 392 ==
LOC: OBS → MED/SURG 21:21
PROVIDERS: ADMIT Internal Medicine; ATTEND Internal Medicine
DX: R26.89 Other abnormalities of gait and mobility; L03.211 Cellulitis of face; R53.1 Weakness; I10 Essential (primary) hypertension; J01.80 Other acute sinusitis; E86.0 Dehydration; R10.84 Generalized abdominal pain; I25.10 Atherosclerotic heart disease of native coronary artery without angina pectoris; Z20.822 Contact with and (suspected) exposure to COVID-19; R94.31 Abnormal electrocardiogram [ECG] [EKG]; K52.89 Other specified noninfective gastroenteritis and colitis; F41.8 Other specified anxiety disorders; H05.019 Cellulitis of unspecified orbit; K21.9 Gastro-esophageal reflux disease without esophagitis; R50.9 Fever, unspecified; J44.9 Chronic obstructive pulmonary disease, unspecified; M54.5 Low back pain; R06.02 Shortness of breath; K44.9 Diaphragmatic hernia without obstruction or gangrene

== ENCOUNTER 2021-08-09 13:03 | Observation (INO) ==
[2021-08-09] MEDS ORDERED: ZOFRAN INJ 4 MG VIAL IVP PRN (14:27)
[2021-08-09] MEDS: NS 1,000 ML IV 1,000 ML IV SCH (14:30)
[2021-08-09 15:07] LABS: BASOPHILS # (AUTO) 0.1 X10^3/uL (0.0-0.1); BASOPHILS % (AUTO) 1.3 % (0.2-1.0); EOSINOPHILS # (AUTO) 0.4 x10^3/uL (0.0-0.2); EOSINOPHILS % (AUTO) 4.1 % (0.9-2.9); HEMOGLOBIN 13.2 g/dL (13.5-18.0); LYMPHOCYTES # (AUTO) 2.5 X10^3/uL (1.3-2.9); LYMPHOCYTES % (AUTO) 25.9 % (21.0-51.0); MEAN CORPUSCULAR HEMOGLOBIN 32.2 pg (27.0-34.0); MEAN CORPUSCULAR HGB CONC 33.8 g/dL (33.0-35.0); MEAN CORPUSCULAR VOLUME 95.3 fL (80.0-100.0); MEAN PLATELET VOLUME 8.2 fL (7.4-11.0); MONOCYTES # (AUTO) 0.6 x10^3/uL (0.3-0.8); MONOCYTES % (AUTO) 6.4 % (0.0-13.0); NEUTROPHILS % (AUTO) 62.3 % (42.0-75.0); RED CELL DISTRIBUTION WIDTH 14.2 % (11.6-16.5); WHITE BLOOD COUNT 9.7 X10^3/uL (3.6-10.0)
[2021-08-09 15:14] LABS: ALANINE AMINOTRANSFERASE 13 Units/L (12-78); ALBUMIN 3.4 g/dL (3.4-5.0); ALKALINE PHOSPHATASE 72 Units/L (46-116); ASPARTATE AMINO TRANSFERASE 12 Units/L (15-37); BLOOD UREA NITROGEN 12 mg/dL (7-18); CARBON DIOXIDE 25.6 mmol/L (21-32); CHLORIDE 109 mmol/L (98-107); CREATININE 1.48 mg/dL (0.70-1.30); MAGNESIUM 2.3 mg/dL (1.7-2.9); SODIUM 143 mmol/L (136-145); TOTAL PROTEIN 6.2 g/dL (6.4-8.2); eGFR NON BLACK RACES 49 (>60)
--- NOTE | 2021-08-09 15:36 | RAD ---
HISTORYN/V/D COPD, CHRONIC BACK PAIN SX: RIGHT HIP, CSPINE, HERNIA REPAIRSTUDYCHEST, 1 [id number]/2022.FINDINGSThe trachea is midline. The cardiac silhouette is unremarkable. The aorta is tortuous. The lungs are grossly clear. There is no pleural effusion.IMPRESSIONNo acute abnormality..Electronically signed by: Sander Barnes (Aug 09, 2021 15:34:36)
[2021-08-09 17:12] LABS: BILIRUBIN,URINE NEGATIVE (NEGATIVE); BLOOD/HEMOGLOBIN,URINE NEGATIVE (NEGATIVE); GLUCOSE, URINE NEGATIVE (NEGATIVE); KETONES,URINE NEGATIVE (NEGATIVE); LEUKOCYTE ESTERASE ,URINE NEGATIVE (NEGATIVE); NITRITES,URINE NEGATIVE (NEGATIVE); PROTEIN,URINE NEGATIVE (NEGATIVE); UROBILINOGEN,URINE NORMAL (NORMAL)
[2021-08-09 17:24] LABS: APPEARANCE,URINE CLEAR (CLEAR); COLOR,URINE YELLOW (YELLOW)
[2021-08-09] MEDS ORDERED: DUONEB 0.5 MG/3 MG (3 mL) NEB ONE (19:54)
[2021-08-09] MEDS: DUONEB 0.5 MG/3 MG (3 mL) NEB SCH (20:15)
[2021-08-09] MEDS: NORCO 5/325 MG TAB PO PRN (20:32)
[2021-08-10] MEDS: NS 1,000 ML IV 1,000 ML IV SCH ×3 (03:32→16:53)
[2021-08-10] MEDS: NORCO 5/325 MG TAB PO PRN ×2 (03:35→08:50)
[2021-08-10] MEDS: DUONEB 0.5 MG/3 MG (3 mL) NEB SCH ×3 (06:13→20:29)
[2021-08-10 06:41] LABS: BASOPHILS % (AUTO) 0.5 % (0.2-1.0); EOSINOPHILS # (AUTO) 0.3 x10^3/uL (0.0-0.2); EOSINOPHILS % (AUTO) 3.6 % (0.9-2.9); HEMOGLOBIN 11.6 g/dL (13.5-18.0); LYMPHOCYTES # (AUTO) 2.4 X10^3/uL (1.3-2.9); LYMPHOCYTES % (AUTO) 29.1 % (21.0-51.0); MEAN CORPUSCULAR HEMOGLOBIN 31.8 pg (27.0-34.0); MEAN CORPUSCULAR HGB CONC 33.1 g/dL (33.0-35.0); MEAN CORPUSCULAR VOLUME 95.9 fL (80.0-100.0); MEAN PLATELET VOLUME 8.7 fL (7.4-11.0); MONOCYTES # (AUTO) 0.7 x10^3/uL (0.3-0.8); MONOCYTES % (AUTO) 8.5 % (0.0-13.0); NEUTROPHILS # (AUTO) 4.8 x10^3/uL (2.2-4.8); NEUTROPHILS % (AUTO) 58.3 % (42.0-75.0); RED BLOOD COUNT 3.65 X10^6/uL (4.7-6.0); RED CELL DISTRIBUTION WIDTH 14.2 % (11.6-16.5); WHITE BLOOD COUNT 8.2 X10^3/uL (3.6-10.0)
[2021-08-10 06:51] LABS: ALANINE AMINOTRANSFERASE 10 Units/L (12-78); ALBUMIN 2.9 g/dL (3.4-5.0); ALKALINE PHOSPHATASE 64 Units/L (46-116); ASPARTATE AMINO TRANSFERASE 10 Units/L (15-37); BLOOD UREA NITROGEN 11 mg/dL (7-18); CALCIUM 7.8 mg/dL (8.5-10.1); CARBON DIOXIDE 24.6 mmol/L (21-32); CHLORIDE 113 mmol/L (98-107); COR CA(FOR HYPOALB) 8.7 mg/dL (8.5-10.1); SODIUM 147 mmol/L (136-145); TOTAL PROTEIN 5.5 g/dL (6.4-8.2); eGFR NON BLACK RACES 53 (>60)
[2021-08-10] MEDS: NORCO 5/325 MG TAB PO SCH ×2 (14:25→21:47)
[2021-08-10 21:27] VITALS: BMI 18.5
[2021-08-11] MEDS: NORCO 5/325 MG TAB PO SCH ×4 (03:23→20:52)
[2021-08-11] MEDS: NS 1,000 ML IV 1,000 ML IV SCH ×4 (05:22→20:29)
[2021-08-11] MEDS: DUONEB 0.5 MG/3 MG (3 mL) NEB SCH ×3 (05:57→21:12)
[2021-08-11 06:17] LABS: BASOPHILS % (AUTO) 0.5 % (0.2-1.0); EOSINOPHILS # (AUTO) 0.4 x10^3/uL (0.0-0.2); HEMATOCRIT 30.2 % (42.0-54.0); LYMPHOCYTES # (AUTO) 2.2 X10^3/uL (1.3-2.9); LYMPHOCYTES % (AUTO) 23.2 % (21.0-51.0); MEAN CORPUSCULAR HEMOGLOBIN 32.1 pg (27.0-34.0); MEAN CORPUSCULAR HGB CONC 33.2 g/dL (33.0-35.0); MEAN CORPUSCULAR VOLUME 96.7 fL (80.0-100.0); MEAN PLATELET VOLUME 8.2 fL (7.4-11.0); MONOCYTES # (AUTO) 0.8 x10^3/uL (0.3-0.8); MONOCYTES % (AUTO) 8.5 % (0.0-13.0); NEUTROPHILS # (AUTO) 6.2 x10^3/uL (2.2-4.8); NEUTROPHILS % (AUTO) 63.8 % (42.0-75.0); RED BLOOD COUNT 3.12 X10^6/uL (4.7-6.0); RED CELL DISTRIBUTION WIDTH 14.4 % (11.6-16.5); WHITE BLOOD COUNT 9.7 X10^3/uL (3.6-10.0)
[2021-08-11 06:28] LABS: ALANINE AMINOTRANSFERASE 10 Units/L (12-78); ALBUMIN 2.5 g/dL (3.4-5.0); ALKALINE PHOSPHATASE 57 Units/L (46-116); ASPARTATE AMINO TRANSFERASE 10 Units/L (15-37); BLOOD UREA NITROGEN 12 mg/dL (7-18); CALCIUM 7.3 mg/dL (8.5-10.1); CARBON DIOXIDE 22.5 mmol/L (21-32); CHLORIDE 114 mmol/L (98-107); COR CA(FOR HYPOALB) 8.5 mg/dL (8.5-10.1); CREATININE 1.19 mg/dL (0.70-1.30); SODIUM 144 mmol/L (136-145); TOTAL PROTEIN 4.9 g/dL (6.4-8.2); eGFR NON BLACK RACES > 60 (>60)
[2021-08-12] MEDS: NORCO 5/325 MG TAB PO SCH ×2 (04:23→08:22)
[2021-08-12] MEDS: DUONEB 0.5 MG/3 MG (3 mL) NEB SCH (06:12)
[2021-08-12 06:51] LABS: BASOPHILS # (AUTO) 0.1 X10^3/uL (0.0-0.1); BASOPHILS % (AUTO) 0.9 % (0.2-1.0); EOSINOPHILS # (AUTO) 0.5 x10^3/uL (0.0-0.2); EOSINOPHILS % (AUTO) 7.5 % (0.9-2.9); HEMATOCRIT 30.4 % (42.0-54.0); HEMOGLOBIN 10.2 g/dL (13.5-18.0); LYMPHOCYTES # (AUTO) 2.2 X10^3/uL (1.3-2.9); LYMPHOCYTES % (AUTO) 30.8 % (21.0-51.0); MEAN CORPUSCULAR HEMOGLOBIN 32.2 pg (27.0-34.0); MEAN CORPUSCULAR HGB CONC 33.7 g/dL (33.0-35.0); MEAN CORPUSCULAR VOLUME 95.7 fL (80.0-100.0); MEAN PLATELET VOLUME 8.9 fL (7.4-11.0); MONOCYTES # (AUTO) 0.6 x10^3/uL (0.3-0.8); MONOCYTES % (AUTO) 9.2 % (0.0-13.0); NEUTROPHILS # (AUTO) 3.6 x10^3/uL (2.2-4.8); NEUTROPHILS % (AUTO) 51.6 % (42.0-75.0); RED BLOOD COUNT 3.17 X10^6/uL (4.7-6.0)
[2021-08-12 06:53] LABS: ALANINE AMINOTRANSFERASE 10 Units/L (12-78); ALBUMIN 2.6 g/dL (3.4-5.0); ALKALINE PHOSPHATASE 62 Units/L (46-116); ASPARTATE AMINO TRANSFERASE 13 Units/L (15-37); BLOOD UREA NITROGEN 12 mg/dL (7-18); CALCIUM 7.4 mg/dL (8.5-10.1); CARBON DIOXIDE 21.6 mmol/L (21-32); CHLORIDE 114 mmol/L (98-107); COR CA(FOR HYPOALB) 8.5 mg/dL (8.5-10.1); CREATININE 1.06 mg/dL (0.70-1.30); SODIUM 144 mmol/L (136-145); TOTAL PROTEIN 5.1 g/dL (6.4-8.2); eGFR NON BLACK RACES > 60 (>60)
[2021-08-12 08:19] VITALS: BP 140/67
--- NOTE | 2021-08-12 10:13 | DR.H&P ---
H&P - History & Physical for Day of: H&P Date: 08/09/21 - Chief Complaint Chief Complaint: WEAKNESS, NAUSEA, VOMITING - History of Present Illness History of Present Illness: IS A 76 YEAR OLD PATIENT OF OURS. HE WAS A DIRECT ADMISSION TO THE HOSPITAL DUE TO COMPLAINTS OF WEAKNESS AND INTRACTABLE NAUSEA AND VOMITING. PATIENTS SPOUSE REPORTS THAT HE HAS HAD DECREASED ORAL INTAKE OVER THE PAST SEVERAL DAYS. PATIENT APPARENTLY HAD CONSTIPATION AND TOOK A LAXATIVE. SINCE TAKING LAXATIVE, PATIENT HAS NOW HAD SEVERAL EPISODES OF DIARRHEA, ACCORDING TO HIS SPOUSE. HIS PMH INCLUDES: CAD, COPD, GERD, COLITIS, BPH, KIDNEY STONES, ARTHRITIS, ANEMIA, ABDOMINAL SURGERY, HIP REPLACEMENT, AND SCHIZOPHRENIA. ON ARRIVAL TO THE HOSPITAL, VITALS WERE 97.5-72-20-97%-122/63. LABS WERE OBTAINED. ABNORMAL LAB VALUES INCLUDE THE FOLLOWING: RBC 4.10, HGB 13.2, HCT 39.0, CHLORIDE 109, CREATININE 1.48, GLUCOSE 100, CALCIUM 8.0, AST 12, TOTAL PROTEIN 6.2. URINALYSIS WAS UNREMARKABLE. COVID NEGATIVE. A CHEST XRAY WAS OBTAINED AND REVEALED: The trachea is midline. The cardiac silhouette is unremarkable. The aorta is tortuous. The lungs are grossly clear. There is no pleural effusion. HE WAS STARTED ON NORMAL SALINE AT 80 ML/HR AND ZOFRAN 4MG IV Q8H PRN. WE WILL REVIEW HIS HOME MEDICATIONS AND RESUME APPROPRIATE. OTHERWISE, WE WILL FOLLOW UP WITH AM LABS AND CONTINUE TO MONITOR. TIME SPENT ON CLINICAL ASSESSMENT, REVIEWING LABS AND IMAGING, DECISION MAKING, AND DOCUMENTATION GREATER THAN 75 MINUTES. - Past Medical History Past Medical History: Anemia, Arthritis, COPD, GERD Additional Medical History: BIPOLAR DISORDER (NO MEDICATION IN 2 YEARS), BPH, HX GASTROINTESTINAL ULCER, COLITIS, HX FX (R) FOOT, PARKINSON'S, CATARACTS, UTI'S, BACK PAIN, SCHIZOPHRENIA - Past Surgical History Surgical History: Abdominal Surgery, Joint Replacement, Ortho Surgery Additional Surgical History: HERNIA REPAIR, ACDF SURGERY -JUN 2016 - Family History Family Medical History: Diabetes Mellitus, Hypertension - Social History Does patient currently use any type of tobacco product: No Have you used tobacco products in the last 12 months: No Type of Tobacco Use: None Does any household member use tobacco: No Alcohol Use: None Drug Use: None - Medications Home Medications: No Known Drug Allergies Allergy (Verified 05/05/21 15:08) CONTINUE taking the following medications amoxicillin 500 mg PO BID 08/09/21 [History] clonazepam 0.5 mg PO HS 08/09/21 [History] hydromorphone 4 mg PO BID 08/09/21 [History] oxycodone-acetaminophen 1 tab PO Q6H PRN 08/09/21 [History] - Review of Systems Constitutional: See HPI, Weakness Eyes: No Symptoms Reported ENT: No Symptoms Reported Respiratory: No Symptoms Reported Cardiovascular: No Symptoms Reported Gastrointestinal: See HPI, Nausea, Vomiting, Diarrhea Genitourinary: No Symptoms Reported Musculoskeletal: No Symptoms Reported Skin: No Symptoms Reported - Physical Exam Vital Signs: Temperature 97.7 F Pulse Rate [Left Radial] 66 Pulse Rate 72 Respiratory Rate 23 Blood Pressure [Right Arm] 140/67 Blood Pressure [Left Arm] 133/77 Blood Pressure [Right Arm] 120/72 Blood Pressure 118/68 O2 Sat by Pulse Oximetry 97 Oriented: Normal Eyes: Normal Ear: Normal Nose: Normal Throat: Normal Respiratory: Diminished Throughout Cardiovascular: Normal : Normal Auscultation: Bowel Sounds: Increased Palpation: Normal Tenderness: Diffuse, Mild Skin: Decreased Turgur Musculoskeletal: Normal Psychiatric: Normal Mood Description: Calm Affect: Normal Speech Pattern: Clear - Assessment/Plan (1) Gastritis Qualifiers: Gastritis type: unspecified gastritis Chronicity: acute Gastritis bleeding: presence of bleeding unspecified Qualified Code(s): K29.00 - Acute gastritis without bleeding Status: Acute Plan: ADMIT, NORMAL SALINE AT 80 ML/HR AND ZOFRAN 4MG IV Q8H PRN. MONITOR LABS. REVIEW HOME MEDICATIONS (2) Intractable nausea and vomiting Status: Acute (3) Dehydration Status: Acute (4) Generalized weakness Status: Acute (5) COPD (chronic obstructive pulmonary disease) Qualifiers: COPD type: unspecified COPD Qualified Code(s): J44.9 - Chronic obstructive pulmonary disease, unspecified Status: Chronic (6) BPH (benign prostatic hypertrophy) Qualifiers: Lower urinary tract symptom presence: symptoms present Qualified Code(s): N40.1 - Benign prostatic hyperplasia with lower urinary tract symptoms Status: Chronic (7) Bipolar disorder Qualifiers: Active/Remission status: in full remission Most recent bipolar episode type: depressed Qualified Code(s): F31.76 - Bipolar disorder, in full remission, most recent episode depressed Status: Chronic (8) Anxiety Status: Chronic (9) Depression Qualifiers: Depression Type: major depressive disorder Major depression recurrence: recurrent Active/Remission status: currently active Major depression episode severity: moderate Qualified Code(s): F33.1 - Major depressive disorder, recurrent, moderate Status: Chronic (10) HTN (hypertension) Qualifiers: Hypertension type: primary hypertension Qualified Code(s): I10 - Essential (primary) hypertension Status: Chronic - Allergies Allergies/Adverse Reactions: Allergies Allergy/AdvReac Type Severity Reaction Status Date / Time No Known Drug Allergies Allergy Verified 05/05/21 15:08
[2021-08-12] MEDS: NS 1,000 ML IV 1,000 ML IV SCH (10:56)
--- NOTE | 2021-09-17 09:50 | PCM.PROG ---
Progress Note - Progress Note for Day of Date of Exam: 08/10/21 - Subjective Subjective: WAS ADMITTED OBSERVATION STATUS FOR TREATMENT OF GASTRITIS, DEHYDRATION, INTRACTABLE NAUSEA AND VOMITING, AND GENERALIZED WEAKNESS. PMH INCLUDES COPD, BPH, BIPOLAR DISORDER, ANXIETY, DEPRESSION, AND HTN. TODAY, HE IS ALERT AND ORIENTED, LYING IN BED ON MORNING ROUNDS. HE CONTINUES WITH COMPLAINTS OF NAUSEA, WEAKNESS, AND DECREASED ORAL INTAKE. DIARRHEA HAS SLOWED DOWN. ON EXAMINATION, HEART IS REGULAR IN RATE AND RHYTHM. BILATERAL LUNGS NOTED WITH DIMINSHED LUNG SOUNDS THROUGHOUT. ABDOMEN IS FLAT, SOFT, AND NOTED WITH HYPERACTIVE BOWEL SOUNDS. NO UPPER OR LOWER EXTREMITY EDEMA NOTED. HIS VITALS THIS MORNING ARE: 97.6-83-22-95%-129/63. LABS WERE OBTAINED. WBC 8.2, RBC 3.65, HGB 11.6, HCT 35.0, SODIUM 147, POTASSIUM 4.6, CHLORIDE 113, BUN 11, CREATININE 1.40, GLUCOSE 82, CALCIUM 7.8, AST 10, ALT 10, ALK PHOS 64, TOTAL PROTEIN 5.5, ALBUMIN 2.9. HE IS CURRENTLY RECEIVING NORMAL SALINE AT 80 ML/HR, ZOFRAN 4MG IV Q8H PRN, AND HIS HOME MEDICATIONS WERE RESUMED. WE WILL CONTINUE WITH CURRENT PLAN OF CARE TODAY. OTHERWISE, WE PLAN TO FOLLOW-UP WITH AM LABS AND CONTINUE TO MONITOR. TIME SPENT ON CLINICAL ASSESSMENT, REVIEWING LABS AND IMAGING, DECISION MAKING, AND DOCUMENTATION GREATER THAN 45 MINUTES. - Past Medical Family Social History Past Med/Fam/Surg Hx: No changes since H&P Allergies: Allergies No Known Drug Allergies Allergy (Verified 08/14/21 12:40) - Review of Systems ROS: No change since H&P - Vital Signs and I&O's Vital Signs: Temperature 97.7 F Pulse Rate [Left Radial] 66 Pulse Rate 72 Respiratory Rate 23 Blood Pressure [Right Arm] 140/67 Blood Pressure [Left Arm] 133/77 Blood Pressure [Right Arm] 120/72 Blood Pressure 118/68 O2 Sat by Pulse Oximetry 97 - Physical Exam Oriented: Normal Eyes: Normal Ear: Normal Nose: Normal Throat: Normal Respiratory: Generalized, Diminished Cardiovascular: Normal : Normal Auscultation: Bowel Sounds: Increased Palpation: Normal Tenderness: Diffuse, Mild Skin: Decreased Turgur Musculoskeletal: Normal Psychiatric: Normal Mood Description: Calm Affect: Normal Speech Pattern: Clear - Laboratory and Diagnostics Result Diagrams: 08/12/21 05:44 08/12/21 05:44 Labs: Laboratory WBC 7.0 X10^3/uL (3.6-10.0) 08/12/21 05:44 RBC 3.17 X10^6/uL (4.7-6.0) L 08/12/21 05:44 Hgb 10.2 g/dL (13.5-18.0) L 08/12/21 05:44 Hct 30.4 % (42.0-54.0) L 08/12/21 05:44 MCV 95.7 fL (80.0-100.0) 08/12/21 05:44 MCH 32.2 pg (27.0-34.0) 08/12/21 05:44 MCHC 33.7 g/dL (33.0-35.0) 08/12/21 05:44 RDW 14.0 % (11.6-16.5) 08/12/21 05:44 Plt Count 151 X10^3/uL (150.0-450.0) 08/12/21 05:44 MPV 8.9 fL (7.4-11.0) 08/12/21 05:44 Neut % (Auto) 51.6 % (42.0-75.0) 08/12/21 05:44 Lymph % (Auto) 30.8 % (21.0-51.0) 08/12/21 05:44 [place] % (Auto) 9.2 % (0.0-13.0) 08/12/21 05:44 Eos % (Auto) 7.5 % (0.9-2.9) H 08/12/21 05:44 Baso % (Auto) 0.9 % (0.2-1.0) 08/12/21 05:44 Neut # (Auto) 3.6 x10^3/uL (2.2-4.8) 08/12/21 05:44 Lymph # (Auto) 2.2 X10^3/uL (1.3-2.9) 08/12/21 05:44 [place] # (Auto) 0.6 x10^3/uL (0.3-0.8) 08/12/21 05:44 Eos # (Auto) 0.5 x10^3/uL (0.0-0.2) H 08/12/21 05:44 Baso # (Auto) 0.1 X10^3/uL (0.0-0.1) 08/12/21 05:44 Absolute Nucleated RBC 0.1 /100WBC 08/12/21 05:44 Sodium 144 mmol/L (136-145) 08/12/21 05:44 Corrected Sodium TNP 08/12/21 05:44 Potassium 4.0 mmol/L (3.5-5.1) 08/12/21 05:44 Chloride 114 mmol/L (98-107) H 08/12/21 05:44 Carbon Dioxide 21.6 mmol/L (21-32) 08/12/21 05:44 BUN 12 mg/dL (7-18) 08/12/21 05:44 Creatinine 1.06 mg/dL (0.70-1.30) 08/12/21 05:44 Est GFR (MDRD) Af Amer > 60 (>60) 08/12/21 05:44 Est GFR (MDRD) Non-Af > 60 (>60) 08/12/21 05:44 Glucose 76 mg/dL (65-99) 08/12/21 05:44 Calcium 7.4 mg/dL (8.5-10.1) L 08/12/21 05:44 Corrected Calcium 8.5 mg/dL (8.5-10.1) 08/12/21 05:44 Magnesium 2.3 mg/dL (1.7-2.9) 08/09/21 14:54 Total Bilirubin 0.40 mg/dL (0.2-1.0) 08/12/21 05:44 AST 13 Units/L (15-37) L 08/12/21 05:44 ALT 10 Units/L (12-78) L 08/12/21 05:44 Alkaline Phosphatase 62 Units/L (46-116) 08/12/21 05:44 Total Protein 5.1 g/dL (6.4-8.2) L 08/12/21 05:44 Albumin 2.6 g/dL (3.4-5.0) L 08/12/21 05:44 Globulin 2.5 g/dL (2.5-4.5) 08/12/21 05:44 Albumin/Globulin Ratio 1.0 Ratio (1.1-2.1) L 08/12/21 05:44 Specimen Type Clean catch urine 08/09/21 16:55 Urine Color Yellow (YELLOW) 08/09/21 16:55 Urine Appearance Clear (CLEAR) 08/09/21 16:55 Urine pH 5.0 (5.0 - 8.0) 08/09/21 16:55 Ur Specific [place] 1.015 (1.000-1.030) 08/09/21 16:55 Urine Protein Negative (NEGATIVE) 08/09/21 16:55 Urine Glucose (UA) Negative (NEGATIVE) 08/09/21 16:55 Urine Ketones Negative (NEGATIVE) 08/09/21 16:55 Urine Occult Blood Negative (NEGATIVE) 08/09/21 16:55 Urine Nitrite Negative (NEGATIVE) 08/09/21 16:55 Urine Bilirubin Negative (NEGATIVE) 08/09/21 16:55 Urine Urobilinogen Normal (NORMAL) 08/09/21 16:55 Ur Leukocyte Esterase Negative (NEGATIVE) 08/09/21 16:55 SARS CoV-2 RNA Rapid JERRELL Negative (NEGATIVE) 08/09/21 13:52 - Plan (1) Gastritis Status: Acute Qualifiers: Gastritis type: unspecified gastritis Chronicity: acute Gastritis bleeding: presence of bleeding unspecified Qualified Code(s): K29.00 - Acute gastritis without bleeding Plan: NORMAL SALINE AT 80 ML/HR AND ZOFRAN 4MG IV Q8H PRN. MONITOR LABS. REVIEW HOME MEDICATIONS (2) Intractable nausea and vomiting Status: Acute (3) Dehydration Status: Acute (4) Generalized weakness Status: Acute (5) COPD (chronic obstructive pulmonary disease) Status: Chronic Qualifiers: COPD type: unspecified COPD Qualified Code(s): J44.9 - Chronic obstructive pulmonary disease, unspecified (6) BPH (benign prostatic hypertrophy) Status: Chronic Qualifiers: Lower urinary tract symptom presence: symptoms present Qualified Code(s): N40.1 - Benign prostatic hyperplasia with lower urinary tract symptoms (7) Bipolar disorder Status: Chronic Qualifiers: Active/Remission status: in full remission Most recent bipolar episode type: depressed Qualified Code(s): F31.76 - Bipolar disorder, in full remission, most recent episode depressed (8) Anxiety Status: Chronic (9) Depression Status: Chronic Qualifiers: Depression Type: major depressive disorder Major depression recurrence: recurrent Active/Remission status: currently active Major depression episode severity: moderate Qualified Code(s): F33.1 - Major depressive disorder, recurrent, moderate (10) HTN (hypertension) Status: Chronic Qualifiers: Hypertension type: primary hypertension Qualified Code(s): I10 - Essential (primary) hypertension
--- NOTE | 2021-09-17 09:54 | PCM.PROG ---
Progress Note - Progress Note for Day of Date of Exam: 08/11/21 - Subjective Subjective: WAS ADMITTED OBSERVATION STATUS FOR TREATMENT OF GASTRITIS, DEHYDRATION, INTRACTABLE NAUSEA AND VOMITING, AND GENERALIZED WEAKNESS. PMH INCLUDES COPD, BPH, BIPOLAR DISORDER, ANXIETY, DEPRESSION, AND HTN. TODAY, HE IS ALERT AND ORIENTED, LYING IN BED ON MORNING ROUNDS. HE CONTINUES WITH COMPLAINTS OF NAUSEA, WEAKNESS, AND DECREASED ORAL INTAKE. HE IS NO LONGER HAVING DIARRHEA. ON EXAMINATION, HEART IS REGULAR IN RATE AND RHYTHM. BILATERAL LUNGS NOTED WITH DIMINSHED LUNG SOUNDS THROUGHOUT. ABDOMEN IS FLAT, SOFT, AND NOTED WITH DIFFUSE TENDERNESS. HYPERACTIVE BOWEL SOUNDS. NO UPPER OR LOWER EXTREMITY EDEMA NOTED. HIS VITALS THIS MORNING ARE: 98.1-78-20-98%-116/58. LABS WERE OBTAINED. WBC 9.7, RBC 3.12, HGB 10.0, HCT 30.2, SODIUM 144, POTASSIUM 4.3, CHLORIDE 114, BUN 12, CREATININE 1.19, CALCIUM 7.3, AST 10, ALT 10, TOTAL PROTEIN 4.9, ALBUMIN 2.5, GLOBULIN 2.4. HE IS CURRENTLY RECEIVING NORMAL SALINE AT 80 ML/HR, ZOFRAN 4MG IV Q8H PRN, AND HIS HOME MEDICATIONS WERE RESUMED. WE WILL CONTINUE WITH CURRENT PLAN OF CARE TODAY. OTHERWISE, WE PLAN TO FOLLOW-UP WITH AM LABS AND CONTINUE TO MONITOR. TIME SPENT ON CLINICAL ASSESSMENT, REVIEWING LABS AND IMAGING, DECISION MAKING, AND DOCUMENTATION GREATER THAN 45 MINUTES. - Past Medical Family Social History Past Med/Fam/Surg Hx: No changes since H&P Allergies: Allergies No Known Drug Allergies Allergy (Verified 08/14/21 12:40) - Review of Systems ROS: No change since H&P - Vital Signs and I&O's Vital Signs: Temperature 97.7 F Pulse Rate [Left Radial] 66 Pulse Rate 72 Respiratory Rate 23 Blood Pressure [Right Arm] 140/67 Blood Pressure [Left Arm] 133/77 Blood Pressure [Right Arm] 120/72 Blood Pressure 118/68 O2 Sat by Pulse Oximetry 97 - Physical Exam Oriented: Normal Eyes: Normal Ear: Normal Nose: Normal Throat: Normal Respiratory: Generalized, Diminished Cardiovascular: Normal : Normal Auscultation: Bowel Sounds: Increased Palpation: Normal Tenderness: Diffuse, Mild Skin: Decreased Turgur Musculoskeletal: Normal Psychiatric: Normal Mood Description: Calm Affect: Normal Speech Pattern: Clear - Laboratory and Diagnostics Result Diagrams: 08/12/21 05:44 08/12/21 05:44 Labs: Laboratory WBC 7.0 X10^3/uL (3.6-10.0) 08/12/21 05:44 RBC 3.17 X10^6/uL (4.7-6.0) L 08/12/21 05:44 Hgb 10.2 g/dL (13.5-18.0) L 08/12/21 05:44 Hct 30.4 % (42.0-54.0) L 08/12/21 05:44 MCV 95.7 fL (80.0-100.0) 08/12/21 05:44 MCH 32.2 pg (27.0-34.0) 08/12/21 05:44 MCHC 33.7 g/dL (33.0-35.0) 08/12/21 05:44 RDW 14.0 % (11.6-16.5) 08/12/21 05:44 Plt Count 151 X10^3/uL (150.0-450.0) 08/12/21 05:44 MPV 8.9 fL (7.4-11.0) 08/12/21 05:44 Neut % (Auto) 51.6 % (42.0-75.0) 08/12/21 05:44 Lymph % (Auto) 30.8 % (21.0-51.0) 08/12/21 05:44 [place] % (Auto) 9.2 % (0.0-13.0) 08/12/21 05:44 Eos % (Auto) 7.5 % (0.9-2.9) H 08/12/21 05:44 Baso % (Auto) 0.9 % (0.2-1.0) 08/12/21 05:44 Neut # (Auto) 3.6 x10^3/uL (2.2-4.8) 08/12/21 05:44 Lymph # (Auto) 2.2 X10^3/uL (1.3-2.9) 08/12/21 05:44 [place] # (Auto) 0.6 x10^3/uL (0.3-0.8) 08/12/21 05:44 Eos # (Auto) 0.5 x10^3/uL (0.0-0.2) H 08/12/21 05:44 Baso # (Auto) 0.1 X10^3/uL (0.0-0.1) 08/12/21 05:44 Absolute Nucleated RBC 0.1 /100WBC 08/12/21 05:44 Sodium 144 mmol/L (136-145) 08/12/21 05:44 Corrected Sodium TNP 08/12/21 05:44 Potassium 4.0 mmol/L (3.5-5.1) 08/12/21 05:44 Chloride 114 mmol/L (98-107) H 08/12/21 05:44 Carbon Dioxide 21.6 mmol/L (21-32) 08/12/21 05:44 BUN 12 mg/dL (7-18) 08/12/21 05:44 Creatinine 1.06 mg/dL (0.70-1.30) 08/12/21 05:44 Est GFR (MDRD) Af Amer > 60 (>60) 08/12/21 05:44 Est GFR (MDRD) Non-Af > 60 (>60) 08/12/21 05:44 Glucose 76 mg/dL (65-99) 08/12/21 05:44 Calcium 7.4 mg/dL (8.5-10.1) L 08/12/21 05:44 Corrected Calcium 8.5 mg/dL (8.5-10.1) 08/12/21 05:44 Magnesium 2.3 mg/dL (1.7-2.9) 08/09/21 14:54 Total Bilirubin 0.40 mg/dL (0.2-1.0) 08/12/21 05:44 AST 13 Units/L (15-37) L 08/12/21 05:44 ALT 10 Units/L (12-78) L 08/12/21 05:44 Alkaline Phosphatase 62 Units/L (46-116) 08/12/21 05:44 Total Protein 5.1 g/dL (6.4-8.2) L 08/12/21 05:44 Albumin 2.6 g/dL (3.4-5.0) L 08/12/21 05:44 Globulin 2.5 g/dL (2.5-4.5) 08/12/21 05:44 Albumin/Globulin Ratio 1.0 Ratio (1.1-2.1) L 08/12/21 05:44 Specimen Type Clean catch urine 08/09/21 16:55 Urine Color Yellow (YELLOW) 08/09/21 16:55 Urine Appearance Clear (CLEAR) 08/09/21 16:55 Urine pH 5.0 (5.0 - 8.0) 08/09/21 16:55 Ur Specific [place] 1.015 (1.000-1.030) 08/09/21 16:55 Urine Protein Negative (NEGATIVE) 08/09/21 16:55 Urine Glucose (UA) Negative (NEGATIVE) 08/09/21 16:55 Urine Ketones Negative (NEGATIVE) 08/09/21 16:55 Urine Occult Blood Negative (NEGATIVE) 08/09/21 16:55 Urine Nitrite Negative (NEGATIVE) 08/09/21 16:55 Urine Bilirubin Negative (NEGATIVE) 08/09/21 16:55 Urine Urobilinogen Normal (NORMAL) 08/09/21 16:55 Ur Leukocyte Esterase Negative (NEGATIVE) 08/09/21 16:55 SARS CoV-2 RNA Rapid JERRELL Negative (NEGATIVE) 08/09/21 13:52 - Plan (1) Gastritis Status: Acute Qualifiers: Gastritis type: unspecified gastritis Chronicity: acute Gastritis bleeding: presence of bleeding unspecified Qualified Code(s): K29.00 - Acute gastritis without bleeding Plan: NORMAL SALINE AT 80 ML/HR AND ZOFRAN 4MG IV Q8H PRN. MONITOR LABS. REVIEW HOME MEDICATIONS (2) Intractable nausea and vomiting Status: Acute (3) Dehydration Status: Acute (4) Generalized weakness Status: Acute (5) COPD (chronic obstructive pulmonary disease) Status: Chronic Qualifiers: COPD type: unspecified COPD Qualified Code(s): J44.9 - Chronic obstructive pulmonary disease, unspecified (6) BPH (benign prostatic hypertrophy) Status: Chronic Qualifiers: Lower urinary tract symptom presence: symptoms present Qualified Code(s): N40.1 - Benign prostatic hyperplasia with lower urinary tract symptoms (7) Bipolar disorder Status: Chronic Qualifiers: Active/Remission status: in full remission Most recent bipolar episode type: depressed Qualified Code(s): F31.76 - Bipolar disorder, in full remission, most recent episode depressed (8) Anxiety Status: Chronic (9) Depression Status: Chronic Qualifiers: Depression Type: major depressive disorder Major depression recurrence: recurrent Active/Remission status: currently active Major depression episode severity: moderate Qualified Code(s): F33.1 - Major depressive disorder, recurrent, moderate (10) HTN (hypertension) Status: Chronic Qualifiers: Hypertension type: primary hypertension Qualified Code(s): I10 - Essential (primary) hypertension
== END 2021-08-12 11:59 | disposition home or self-care (01) ==
LOC: MED/SURG
PROVIDERS: ADMIT Internal Medicine; ATTEND Internal Medicine
DX: F31.76 Bipolar disorder, in full remission, most recent episode depressed; R53.1 Weakness; J44.9 Chronic obstructive pulmonary disease, unspecified; Z20.822 Contact with and (suspected) exposure to COVID-19; K29.00 Acute gastritis without bleeding; I10 Essential (primary) hypertension; K21.9 Gastro-esophageal reflux disease without esophagitis; R11.2 Nausea with vomiting, unspecified; F41.8 Other specified anxiety disorders; Z79.899 Other long term (current) drug therapy; N40.1 Benign prostatic hyperplasia with lower urinary tract symptoms; E86.0 Dehydration

== ENCOUNTER 2022-03-18 08:44 | Observation (INO) ==
[2022-03-18] MEDS: NS 1,000 ML IV 1,000 ML IV SCH ×2 (11:00→23:21)
[2022-03-18 11:35] LABS: BASOPHILS # (AUTO) 0.1 X10^3/uL (0.0-0.1); BASOPHILS % (AUTO) 0.9 % (0.2-1.0); EOSINOPHILS # (AUTO) 0.4 x10^3/uL (0.0-0.2); EOSINOPHILS % (AUTO) 5.3 % (0.9-2.9); HEMATOCRIT 33.3 % (42.0-54.0); HEMOGLOBIN 11.1 g/dL (13.5-18.0); LYMPHOCYTES # (AUTO) 1.6 X10^3/uL (1.3-2.9); LYMPHOCYTES % (AUTO) 19.9 % (21.0-51.0); MEAN CORPUSCULAR HEMOGLOBIN 31.4 pg (27.0-34.0); MEAN CORPUSCULAR HGB CONC 33.3 g/dL (33.0-35.0); MEAN CORPUSCULAR VOLUME 94.4 fL (80.0-100.0); MEAN PLATELET VOLUME 7.6 fL (7.4-11.0); MONOCYTES # (AUTO) 0.8 x10^3/uL (0.3-0.8); MONOCYTES % (AUTO) 10.1 % (0.0-13.0); NEUTROPHILS # (AUTO) 5.1 x10^3/uL (2.2-4.8); NEUTROPHILS % (AUTO) 63.8 % (42.0-75.0); RED BLOOD COUNT 3.53 X10^6/uL (4.7-6.0); RED CELL DISTRIBUTION WIDTH 14.7 % (11.6-16.5)
[2022-03-18 11:57] LABS: ALANINE AMINOTRANSFERASE 18 Units/L (12-78); ALKALINE PHOSPHATASE 95 Units/L (46-116); ASPARTATE AMINO TRANSFERASE 13 Units/L (15-37); BLOOD UREA NITROGEN 17 mg/dL (7-18); CALCIUM 7.9 mg/dL (8.5-10.1); CARBON DIOXIDE 25.7 mmol/L (21-32); CHLORIDE 108 mmol/L (98-107); COR CA(FOR HYPOALB) 8.7 mg/dL (8.5-10.1); CREATININE 1.39 mg/dL (0.70-1.30); SODIUM 139 mmol/L (136-145); TOTAL PROTEIN 6.4 g/dL (6.4-8.2); eGFR NON BLACK RACES 53 (>60)
[2022-03-18 13:25] VITALS: BMI 15.0
[2022-03-18] MEDS: PERCOCET TAB 5/325 MG PO PRN (16:45)
[2022-03-18] MEDS: ULTRAM PO PRN (22:18)
[2022-03-19] MEDS: PERCOCET TAB 5/325 MG PO PRN ×2 (02:03→08:45)
[2022-03-19 04:32] LABS: BILIRUBIN,URINE NEGATIVE (NEGATIVE); BLOOD/HEMOGLOBIN,URINE NEGATIVE (NEGATIVE); GLUCOSE, URINE NEGATIVE (NEGATIVE); KETONES,URINE NEGATIVE (NEGATIVE); LEUKOCYTE ESTERASE ,URINE 3+ (NEGATIVE); NITRITES,URINE POSITIVE (NEGATIVE); PROTEIN,URINE 1+ (NEGATIVE); UROBILINOGEN,URINE NORMAL (NORMAL)
[2022-03-19] MEDS: ULTRAM PO PRN (04:35)
[2022-03-19 04:40] LABS: APPEARANCE,URINE SLIGHTLY HAZY (CLEAR); BACTERIA,URINE 2+ /HPF (NEGATIVE); COLOR,URINE YELLOW (YELLOW); RBC,URINE 0-2 /HPF (0-3); SQUAMOUS EPITHELIAL CELL,UR FEW /HPF (NEGATIVE)
[2022-03-19] MEDS ORDERED: DILAUDID ONE ×2 (06:02→20:21)
[2022-03-19] MEDS: DILAUDID PO PRN ×2 (06:04→21:25)
[2022-03-19 06:38] LABS: BASOPHILS # (AUTO) 0.1 X10^3/uL (0.0-0.1); BASOPHILS % (AUTO) 0.9 % (0.2-1.0); EOSINOPHILS # (AUTO) 0.4 x10^3/uL (0.0-0.2); EOSINOPHILS % (AUTO) 6.1 % (0.9-2.9); HEMATOCRIT 28.5 % (42.0-54.0); HEMOGLOBIN 9.7 g/dL (13.5-18.0); LYMPHOCYTES # (AUTO) 2.9 X10^3/uL (1.3-2.9); LYMPHOCYTES % (AUTO) 39.1 % (21.0-51.0); MEAN CORPUSCULAR HEMOGLOBIN 32.3 pg (27.0-34.0); MEAN CORPUSCULAR VOLUME 94.9 fL (80.0-100.0); MEAN PLATELET VOLUME 7.4 fL (7.4-11.0); MONOCYTES # (AUTO) 0.9 x10^3/uL (0.3-0.8); MONOCYTES % (AUTO) 11.6 % (0.0-13.0); NEUTROPHILS # (AUTO) 3.1 x10^3/uL (2.2-4.8); NEUTROPHILS % (AUTO) 42.3 % (42.0-75.0); RED CELL DISTRIBUTION WIDTH 14.8 % (11.6-16.5); WHITE BLOOD COUNT 7.4 X10^3/uL (3.6-10.0)
--- NOTE | 2022-03-19 06:44 | RAD ---
HISTORYShortness of breathSTUDYChest AP [id number]/2022FINDINGSHear t size is normal. Sabra are normal. Aorta is mildly ectatic. The sabra are normal. Right hemidiaphragm is elevated. Lung adames are free of acute alveolar infiltrates. No pleural effusions are identified. There appears to be a hiatal hernia present. Bony thorax is unremarkable.IMPRESSIONNo definite acute infiltratesChronically elevated right hemidiaphragmHiatal herniaElectronically signed by: ABENA RAO (Mar 19, 2022 06:43:03)
[2022-03-19 06:47] LABS: ALANINE AMINOTRANSFERASE 13 Units/L (12-78); ALBUMIN 2.7 g/dL (3.4-5.0); ALKALINE PHOSPHATASE 84 Units/L (46-116); ASPARTATE AMINO TRANSFERASE 13 Units/L (15-37); BLOOD UREA NITROGEN 14 mg/dL (7-18); CALCIUM 7.9 mg/dL (8.5-10.1); CARBON DIOXIDE 24.6 mmol/L (21-32); CHLORIDE 110 mmol/L (98-107); COR CA(FOR HYPOALB) 8.9 mg/dL (8.5-10.1); CREATININE 1.22 mg/dL (0.70-1.30); SODIUM 143 mmol/L (136-145); TOTAL PROTEIN 5.7 g/dL (6.4-8.2); eGFR NON BLACK RACES > 60 (>60)
--- NOTE | 2022-03-19 07:59 | RAD ---
HISTORYRight hip painSTUDYBilateral hips two views each, AP [id number]/2022FINDINGSThe bones are osteopenic. The pelvic bones and SI joints are intact. Patient is status post right total hip arthroplasty. The prosthetic femoral head is in good position within the prosthetic acetabulum. There is no evidence for periprosthetic fracture or loosening. The left hip joint is intact. No joint erosions are identified. The patient is status post open reduction and internal fixation of a remote healed proximal left femur fracture. Fixation hardware is present.IMPRESSIONStatus post right DANA in good position without definite acute findingsPostsurgical changes left proximal femur as describedNormal left hip jointOsteopeniaElectronically signed by: ABENA RAO (Mar 19, 2022 07:57:07)
[2022-03-19] MEDS ORDERED: HALDOL INJ IM PRN (08:37)
[2022-03-19] MEDS: FLOMAX PO SCH (08:42)
[2022-03-19] MEDS: XANAX PO SCH (08:42)
[2022-03-19] MEDS: CYMBALTA PO SCH (08:42)
[2022-03-19] MEDS: PEPCID TAB 40 MG PO SCH (08:43)
[2022-03-19] MEDS: COLACE CAP 100 MG PO SCH ×2 (08:43→21:24)
[2022-03-19] MEDS: MEGACE PO SCH ×2 (08:43→21:24)
[2022-03-19] MEDS: MIRALAX POWDER (1 DOSE 17 G) PO SCH (08:43)
[2022-03-19] MEDS ORDERED: POLYETHYLENE GLYCOL MISCELLANEOUS SCH (09:00)
[2022-03-19] MEDS ORDERED: ROCEPHIN VIAL 1 GRAM 1 G in NS 100 ML IV 100 ML IV SCH (09:00)
[2022-03-19] MEDS ORDERED: ROCEPHIN 1 GRAM IV PREMIX 1 G/50 ML IV.SOLN. IV SCH (09:00)
[2022-03-19] MEDS ORDERED: PATIENT'S HOME MEDICATION (Alprazolam 0.5 mg tablet) PO SCH (09:00)
[2022-03-19] MEDS: AUGMENTIN 875 MG/125 MG TAB PO SCH ×2 (14:33→22:00)
[2022-03-19] MEDS ORDERED: KLONOPIN TAB 0.5 MG PO SCH (21:00)
[2022-03-20] MEDS: PERCOCET TAB 5/325 MG PO PRN ×2 (03:59→09:27)
[2022-03-20 06:28] LABS: BASOPHILS # (AUTO) 0.1 X10^3/uL (0.0-0.1); BASOPHILS % (AUTO) 1.2 % (0.2-1.0); EOSINOPHILS # (AUTO) 0.4 x10^3/uL (0.0-0.2); EOSINOPHILS % (AUTO) 6.5 % (0.9-2.9); HEMATOCRIT 29.1 % (42.0-54.0); HEMOGLOBIN 9.9 g/dL (13.5-18.0); LYMPHOCYTES # (AUTO) 2.5 X10^3/uL (1.3-2.9); LYMPHOCYTES % (AUTO) 40.9 % (21.0-51.0); MEAN CORPUSCULAR HEMOGLOBIN 31.9 pg (27.0-34.0); MEAN CORPUSCULAR VOLUME 93.8 fL (80.0-100.0); MONOCYTES # (AUTO) 0.8 x10^3/uL (0.3-0.8); MONOCYTES % (AUTO) 13.1 % (0.0-13.0); NEUTROPHILS # (AUTO) 2.4 x10^3/uL (2.2-4.8); NEUTROPHILS % (AUTO) 38.3 % (42.0-75.0); RED CELL DISTRIBUTION WIDTH 14.9 % (11.6-16.5); WHITE BLOOD COUNT 6.2 X10^3/uL (3.6-10.0)
[2022-03-20 06:35] LABS: ALANINE AMINOTRANSFERASE 12 Units/L (12-78); ALBUMIN 2.6 g/dL (3.4-5.0); ALKALINE PHOSPHATASE 82 Units/L (46-116); ASPARTATE AMINO TRANSFERASE 18 Units/L (15-37); BLOOD UREA NITROGEN 13 mg/dL (7-18); CALCIUM 7.9 mg/dL (8.5-10.1); CARBON DIOXIDE 24.1 mmol/L (21-32); CHLORIDE 109 mmol/L (98-107); CREATININE 1.15 mg/dL (0.70-1.30); SODIUM 141 mmol/L (136-145); TOTAL PROTEIN 5.5 g/dL (6.4-8.2); eGFR NON BLACK RACES > 60 (>60)
[2022-03-20] MEDS: FLOMAX PO SCH (09:27)
[2022-03-20] MEDS: XANAX PO SCH (09:27)
[2022-03-20] MEDS: CYMBALTA PO SCH (09:28)
[2022-03-20] MEDS: COLACE CAP 100 MG PO SCH (09:28)
[2022-03-20] MEDS: PEPCID TAB 40 MG PO SCH (09:28)
[2022-03-20] MEDS: MIRALAX POWDER (1 DOSE 17 G) PO SCH (09:28)
[2022-03-20] MEDS: MEGACE PO SCH (09:28)
[2022-03-20] MEDS: AUGMENTIN 875 MG/125 MG TAB PO SCH (11:43)
[2022-03-20 14:41] VITALS: BP 126/71
--- NOTE | 2022-03-30 22:24 | DR.H&P ---
H&P - History & Physical for Day of: H&P Date: 03/18/22 - Chief Complaint Chief Complaint: WEAKNESS, BILATERAL HP PAIN, AMS - History of Present Illness History of Present Illness: IS A 76 YEAR OLD PATIENT OF OURS. HE WAS A DIRECT ADMISSION TO THE HOSPITAL DUE TO COMPLAINTS OF GENERALIZED WEAKNESS, INTRACTABLE BILATERAL HIP PAIN, AND ALTERED MENTAL STATUS. PATIENT HAS A HISTORY OF BILATERAL HIP REPLACEMENTS. HIS SPOUSE REPORTS THAT HE FELL SEVERAL DAYS AGO AND HAS HAD BILATERAL HIP PAIN SINCE THEN. HIS PMH INCLUDES: CAD, COPD, GERD, COLITIS, BPH, KIDNEY STONES, ARTHRITIS, ANEMIA, ABDOMINAL SURGERY, HIP REPLACEMENT, AND SCHIZOPHRENIA. ON ARRIVAL TO THE HOSPITAL, VITALS WERE 97.6-92-20-92%-117/60. LABS WERE OBTAINED. ABNORMAL LAB VALUES INCLUDE THE FOLLOWING: WBC 8.0, RBC 3.53, HGB 11.1, HCT 33.3, PLT COUNT 282, SODIUM 139, PO TASSIUM 4.2, CHLORIDE 108, CARBON DIOXIDE 25.7, BUN 17, CREATININE 1.39, GFR 53, GLUCOSE 88, CALCIUM 7.9, TOTAL BILI 0.20, AST 13, ALT 18, ALK PHOS 95, TOTAL PROTEIN 6.4, ALBUMIN 3.0. A URINALYSIS WAS OBTAINED AND REVEALED: WBC 20-30, RBC 0-2, LEUKOCYTES 3+, BACTERIA 2+, NITRITES POSITIVE. URINE CULTURE WAS SET UP. A CHEST XRAY WAS OBTAINED AND REVEALED: Heart size is normal. Sabra are normal. Aorta is mildly ectatic. The sabra are normal. Right hemidiaphragm is elevated. Lung adames are free of acute alveolar infiltrates. No pleural effusions are identified. There appears to be a hiatal hernia present. Bony thorax is unremarkable. BILATERAL HIP XRAY REVEALED: Status post right DANA in good position without definite acute findings. Postsurgical changes left proximal femur. Normal left hip joint. Osteopenia. HE WAS STARTED ON NORMAL SALINE AT 80 ML/HR, ROCEPHIN 1G IV DAILY, PERCOCET 5/325MG 2 TABS Q6H PRN, TRAMADOL 50MG PO Q6H PRN, DILAUDID 40MG PO BID PRN, ALPRAZOLAM 0.5MG PO DAILY, MIRALAX 17G PO DAILY, KLONOPIN 0.5MG PO HS, COLACE 100MG PO BID, DULOXETINE 30MG PO DAILY, FAMOTIDINE 40MG PO DAILY, MEGACE 40MG PO BID, TAMSULOSIN 0.4MG PO DAILY, ALPRAZOLAM 0.5MG PO DAILY, AND HALDOL 2.5MG IM Q4H PRN. OTHERWISE, WE WILL FOLLOW UP WITH AM LABS AND CONTINUE TO MONITOR. TIME SPENT ON CLINICAL ASSESSMENT, REVIEWING LABS AND IMAGING, DECISION MAKING, AND DOCUMENTATION GREATER THAN 75 MINUTES. - Past Medical History Past Medical History: Anemia, COPD, GERD, Arthritis Additional Medical History: BIPOLAR DISORDER (NO MEDICATION IN 2 YEARS), BPH, HX GASTROINTESTINAL ULCER, COLITIS, HX FX (R) FOOT, PARKINSON'S, CATARACTS, UTI'S, BACK PAIN, SCHIZOPHRENIA - Past Surgical History Surgical History: Ortho Surgery Additional Surgical History: HERNIA REPAIR, ACDF SURGERY -JUN 2016 - Family History Family Medical History: ND, Coronary Artery Disease, Hypertension - Social History Does patient currently use any type of tobacco product: No Have you used tobacco products in the last 12 months: No Type of Tobacco Use: None Does any household member use tobacco: No Alcohol Use: None Drug Use: None - Medications Home Medications: No Known Drug Allergies Allergy (Verified 08/14/21 12:40) CONTINUE taking the following medications clonazepam 0.5 mg tablet 0.5 mg PO HS 03/18/22 [History] docusate sodium 100 mg capsule 100 mg PO BID 03/18/22 [History] duloxetine 30 mg capsule,delayed release 30 mg PO DAILY 03/18/22 [History] famotidine 40 mg tablet 40 mg PO DAILY 03/18/22 [History] megestrol 40 mg tablet 1 tab PO BID 03/18/22 [History] polyethylene glycol 1 ea miscellaneous DAILY 03/18/22 [History] tamsulosin 0.4 mg capsule 0.4 mg PO DAILY 03/18/22 [History] New Prescriptions amoxicillin 875 mg-potassium clavulanate 125 mg tablet 1 ea PO Q12H #20 tabs [Rx] - Review of Systems Constitutional: Weakness Eyes: No Symptoms Reported ENT: No Symptoms Reported Respiratory: No Symptoms Reported Cardiovascular: No Symptoms Reported Gastrointestinal: No Symptoms Reported Genitourinary: No Symptoms Reported Musculoskeletal: See HPI, Other (BILATERAL HIP PAIN ) Skin: No Symptoms Reported Neurological: See HPI, Weakness, Confusion - Physical Exam Vital Signs: Temperature 99.1 F Pulse Rate [Left Brachial] 84 Respiratory Rate 18 Blood Pressure [Left Arm] 126/71 Blood Pressure [Right Arm] 137/75 O2 Sat by Pulse Oximetry 96 Oriented: Normal Eyes: Normal Ear: Normal Nose: Normal Throat: Normal Respiratory: Diminished Throughout Cardiovascular: Normal : Normal Auscultation: Bowel Sounds: Normal Palpation: Normal Tenderness: Normal Skin: Normal Musculoskeletal: Right, Left, Hip, Tender Psychiatric: Normal Mood Description: Calm Affect: Normal Speech Pattern: Clear, Inappropriate - Assessment/Plan (1) Urinary tract infection Qualifiers: Urinary tract infection type: acute cystitis Hematuria presence: without hematuria Qualified Code(s): N30.00 - Acute cystitis without hematuria Status: Acute Plan: ADMIT, NORMAL SALINE AT 80 ML/HR, ROCEPHIN 1G IV DAILY, PERCOCET 5/325MG 2 TABS Q6H PRN, TRAMADOL 50MG PO Q6H PRN, DILAUDID 40MG PO BID PRN, ALPRAZOLAM 0.5MG PO DAILY, MIRALAX 17G PO DAILY, KLONOPIN 0.5MG PO HS, COLACE 100MG PO BID, DULOXETINE 30MG PO DAILY, FAMOTIDINE 40MG PO DAILY, MEGACE 40MG PO BID, TAMSULOSIN 0.4MG PO DAILY, ALPRAZOLAM 0.5MG PO DAILY, AND HALDOL 2.5MG IM Q4H PRN. (2) Generalized weakness Status: Acute (3) Benign essential HTN Status: Acute (4) Chronic hip pain after total replacement of right hip joint Status: Chronic (5) BPH (benign prostatic hypertrophy) Qualifiers: Lower urinary tract symptom presence: symptoms present Qualified Code(s): N40.1 - Benign prostatic hyperplasia with lower urinary tract symptoms Status: Chronic (6) Bipolar disorder Qualifiers: Active/Remission status: in full remission Most recent bipolar episode type: depressed Qualified Code(s): F31.76 - Bipolar disorder, in full remission, most recent episode depressed Status: Chronic (7) Depression Qualifiers: Depression Type: major depressive disorder Major depression recurrence: recurrent Active/Remission status: currently active Major depression episode severity: moderate Qualified Code(s): F33.1 - Major depressive disorder, recurrent, moderate Status: Chronic - Allergies Allergies/Adverse Reactions: Allergies Allergy/AdvReac Type Severity Reaction Status Date / Time No Known Drug Allergies Allergy Verified 08/14/21 12:40
== END 2022-03-20 12:00 | disposition home health service (06) ==
LOC: MED/SURG
PROVIDERS: ADMIT Internal Medicine; ATTEND Internal Medicine
DX: J44.9 Chronic obstructive pulmonary disease, unspecified; F31.76 Bipolar disorder, in full remission, most recent episode depressed; R06.02 Shortness of breath; K21.9 Gastro-esophageal reflux disease without esophagitis; R41.82 Altered mental status, unspecified; M85.80 Other specified disorders of bone density and structure, unspecified site; R26.89 Other abnormalities of gait and mobility; N30.00 Acute cystitis without hematuria; R53.1 Weakness; Z96.643 Presence of artificial hip joint, bilateral; N40.1 Benign prostatic hyperplasia with lower urinary tract symptoms; M25.552 Pain in left hip; R94.4 Abnormal results of kidney function studies; B96.29 Other Escherichia coli [E. coli] as the cause of diseases classified elsewhere; M25.551 Pain in right hip; I10 Essential (primary) hypertension